=== PATIENT | female | born 1960 | race Caucasian/White ===

== ENCOUNTER 2017-06-05 13:30 | Outpatient (RCR) | payer MEDICARE, MEDICAID, SELFPAY ==
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
--- NOTE | 2017-06-29 14:46 | HP.PTDCNRP_ITS ---
HP - Discharge Summary (1) - Patient Information JEREMY TURNER was seen in my office for initial evaluation on 05/22/17. The following Plan of Care was established for this patient: Initial Frequency: 2-3x /Week Initial Duration: 4-6 Weeks - Anticipated Interventions Patient/Client Instruction: Educate patient on: Condition, Plan of Care, Risk Factors, Benefits of Fitness Program For the Purpose of:: To improve self management Therapeutic Exercise to Include: Strength training, Body mechanics, Postural training, Flexibilty training, In an aquatic setting, Dynamic Lumbar Stabilization, Scapular Strength/Stabilization For the Purpose of:: To improve ability of physical actions for home/community/ work/leisure, To improve gait and locomotor functions This patient was last seen in our office . Pertinent comments regarding their Physical therapy will appear below: THIS PATIENT ATTENDED AN INITIAL EVALUATION AND TWO FOLLOW UP VISITS THEN CANCELLED SEVERAL APPOINTMENTS APPARENTLY DUE TO ILLNESS. SHE CANCELLED HER LAST SCHEDULED VISIT AND TO MY KNOWLEDGE SHE HAS NOT RE-SCHEDULED. I WILL GO A HEAD AND DISCHARGE HER CHART AT THIS TIME BUT WE WOULD BE HAPPY TO RESUME PT IN THE FUTURE APPROPRIATE. At this point I will be discontinuing this patient from physical therapy. I would be happy to see this patient again in the future if found appropriate by the physician. Thank you! Gloria Novak
== END 2017-06-05 19:00 | disposition home or self-care (01) ==
LOC: PT 13:30
PROVIDERS: Family Provider Nurse Practitioner Family; PCP Nurse Practitioner Family; Visit Provider Anesthesiology Pain Medicine
DX: M48.02 Spinal stenosis, cervical region (principal); M50.30 Other cervical disc degeneration, unspecified cervical region; M48.061 Spinal stenosis, lumbar region without neurogenic claudication; M46.96 Unspecified inflammatory spondylopathy, lumbar region; M54.16 Radiculopathy, lumbar region; M51.36 Other intervertebral disc degeneration, lumbar region; M15.9 Polyosteoarthritis, unspecified; M79.1 Myalgia; G89.4 Chronic pain syndrome
CPT/HCPCS: 97113; 97162

== ENCOUNTER → 2023-02-16 | Outpatient (CLI) | payer MEDICARE, MEDICAID, SELFPAY ==
--- NOTE | 2023-02-16 14:10 | NEURO ---
NCS and/or EMG Patient Report Ordering Doctor: ABDOUL JEROME DATE OF SERVICE: 02/16/23 Clinical Summary: 62 year old female presenting with complaints of numbness in the left hand and distal left lower extremity. This EMG/NCS was performed to evaluate for left carpal tunnel syndrome, left lumbosacral radiculopathy, and peripheral polyneuropathy. Nerve Conduction Studies Summary: The left median-D2 SNAP distal latency was prolonged. The left ulnar-D5 SNAP amplitude was reduced. Needle Examination Summary: Needle examination of select muscles of the left upper and lower extremities was normal. Impression: There is electrodiagnostic evidence of the following - 1) Mild, left median mononeuropathy at the wrist (carpal tunnel syndrome), with sensory fiber demyelination. 2) Isolated lower ulnar sensory amplitude can be indicative of a non-localizable left ulnar mononeuropathy. There is no electrodiagnostic evidence of a left lumbosacral radiculopathy and large-fiber peripheral neuropathy. Multi Select Codes Neurology Neurology Interp Codes: 48220-90 Musc test done w/n test comp (interp) (2) and 25125-25 Nrv cndj test 11-12 studies (interp)
== END | disposition home or self-care (01) ==
LOC: PSN 12:12
PROVIDERS: PCP Nurse Practitioner Family; Referring Provider Psychiatry & Neurology Neurology; Visit Provider Psychiatry & Neurology Neurology
DX: M21.372 Foot drop, left foot (principal)
CPT/HCPCS: 95886; 95912

== ENCOUNTER → 2024-08-08 | Outpatient (CLI) | payer MEDICARE, MEDICAID, SELFPAY ==
[2024-08-08 17:23] LABS: Absolute Lymphocyte Count 2.85 X10^3/uL (0.83-4.51); Absolute Neutrophil Count 5.7 X10^3/uL (2.0-7.7); Basophil# 0.11 X10^3/uL; Basophil% 1.1 % (0-1); Eosinophil# 0.26 X10^3/uL; Eosinophils% 2.6 % (0-5); Hematocrit 43.8 % (37-47); Hemoglobin 14.4 g/dL (12.0-15.0); Lymphocyte # 2.85 X10^3/ul (0.83-4.51); Lymphocyte % 28.8 % (19-41); Mean Corp Hgb Conc 32.9 g/dL (32-36); Mean Corpuscular Hgb 31.3 pg (27.0-32.0); Mean Corpuscular Volume 95.2 fL (81-99); Mean Platelet Vol. 9.5 fl (6.2-12.0); Monocyte# 0.93 X10^3/uL; Monocyte% 9.4 % (0-10); NRBC Flagged by Analyzer 0 % (0-5); Neutrophil # 5.72 X10^3/uL (2.7-7.7); Neutrophil % 57.8 % (47-70); Platelet Count 559 K/mm3 (150-450); RBC Distribution Width CV 12.4 % (11.6-14.6); RBC Distribution Width SD 43.3 fl (35.1-43.9); White Blood Count 9.9 K/mm3 (4.4-11.0)
[2024-08-08 18:15] LABS: ALB/GLOB Ratio 1.5 RATIO (0.9-2.4); AST(SGOT) 23 U/L (<=31); Alanine Aminotransfer ALT/SGPT 20 U/L (<=34); Albumin, Serum 4.8 g/dL (3.4-4.8); Alkaline Phosphatase 74 U/L (35-104); Anion Gap 16 (5-15); BUN 11 mg/dL (4-19); BUN/Creat Ratio 10.5 RATIO (10-20); Calcium,Total 10.1 mg/dL (7.6-11.0); Carbon Dioxide 22.8 mmol/L (21.0-32.0); Chloride 101 mmol/L (98-108); Cholesterol 205 mg/dL (<=200); Creatinine, Serum 1.03 mg/dL (0.70-1.20); EST Glomerular Filtration Rate 60 (>60); Globulin 3.2 g/dL (2.2-4.2); Glucose 94 mg/dL (70-99); Hepatitis C Antibody Nonreactive (Nonreactive); High Density Lipoprotein 58 mg/dL; Low Density Lipoprotein Calc. 118 mg/dL; Potassium 3.4 mmol/L (3.3-5.1); Protein, Total 7.9 g/dL (5.9-8.4); Sodium Level 140 mmol/L (133-145); Total Bilirubin 0.27 mg/dL (0.00-1.30); Triglycerides 147 mg/dL; Very Low Density Lipoprotein 29 mg/dL (5-40); cholesterol:hdl ratio screen 3.54
[2024-08-08 18:21] LABS: Vitamin D,25 Hydroxy 30.5 ng/mL (30-100)
== END | disposition home or self-care (01) ==
LOC: LAB 15:54
PROVIDERS: PCP Nurse Practitioner Family; Referring Provider Family Medicine Geriatric Medicine; Visit Provider Family Medicine Geriatric Medicine
DX: Z13.89 Encounter for screening for other disorder (principal); E78.5 Hyperlipidemia, unspecified; E55.9 Vitamin D deficiency, unspecified
CPT/HCPCS: 36415; 80053; 80061; 82306; 84443; 85025; 86803

== ENCOUNTER → 2024-08-27 | Outpatient (CLI) | payer MEDICARE, MEDICAID, SELFPAY ==
--- NOTE | 2024-08-27 11:56 | BD_ITS ---
PROCEDURE: DEXA BONE DENSITY STUDY 08/27/2024 REASON FOR EXAM: F, age 64 y/o . Postmenopausal. TECHNIQUE: DXA scan of sites with data reported below. REFERENCE LINKS: ISCD Adult Positions COMPARISON: None FINDINGS: BMD and T-SCORES Lumbar spine: 1.103 g/cm2, T-score 0.5 Levels: L1 through L4 Left femoral neck: 0.549 g/cm2, T-score -2.7 Femoral neck comparison data not recommended for monitoring change. Left total hip: 0.764 g/cm2, T-score -1.5 Right femoral neck: 0.559 g/cm2, T-score -2.6 Femoral neck comparison data not recommended for monitoring change. Right total hip: 0.752 g/cm2, T-score -1.6 The World Health Organization has defined the following categories based on bone density: Normal bone density: T-score equal to or greater than -1.0 Osteopenia: T-score between -1.0 and -2.5 Osteoporosis: T-score equal to or less than -2.5 The patient does meet the pharmacological treatment recommendations for prevention of osteoporosis. BD/Dexa Bone Density Study IMPRESSION: OSTEOPOROSIS. Recommend follow-up as clinically warranted. Reading Location: [facility]
== END | disposition home or self-care (01) ==
LOC: OPBD 11:48
PROVIDERS: PCP Family Medicine Geriatric Medicine; Referring Provider Family Medicine Geriatric Medicine; Visit Provider Family Medicine Geriatric Medicine
DX: Z12.31 Encounter for screening mammogram for malignant neoplasm of breast (principal); Z78.0 Asymptomatic menopausal state; F17.210 Nicotine dependence, cigarettes, uncomplicated
CPT/HCPCS: 77080

== ENCOUNTER → 2024-11-11 | Outpatient (CLI) | payer MEDICARE, MEDICAID, SELFPAY ==
[2024-11-11 12:20] LABS: Hematocrit 37.7 % (37-47); Hemoglobin 12.1 g/dL (12.0-15.0); Immature Granulocytes Count 0.020 X10^3/uL (0.0-0.0); Mean Corp Hgb Conc 32.1 g/dL (32-36); Mean Corpuscular Volume 95.9 fL (81-99); Mean Platelet Vol. 9.2 fl (6.2-12.0); NRBC Flagged by Analyzer 0 % (0-5); Platelet Count 488 K/mm3 (150-450); RBC Distribution Width CV 13.7 % (11.6-14.6); RBC Distribution Width SD 48.7 fl (35.1-43.9); Red Blood Count 3.93 M/mm3 (4.2-5.4); White Blood Count 8.9 K/mm3 (4.4-11.0)
[2024-11-11 13:10] LABS: AST(SGOT) 17 U/L (<=31); Alanine Aminotransfer ALT/SGPT 9 U/L (<=34); Albumin, Serum 4.1 g/dL (3.4-4.8); Alkaline Phosphatase 162 U/L (35-104); Anion Gap 12 (5-15); BUN 8 mg/dL (4-19); BUN/Creat Ratio 15.7 RATIO (10-20); Calcium,Total 9.0 mg/dL (7.6-11.0); Carbon Dioxide 23.5 mmol/L (21.0-32.0); Chloride 104 mmol/L (98-108); Globulin 2.7 g/dL (2.2-4.2); Glucose 99 mg/dL (70-99); Potassium 3.7 mmol/L (3.3-5.1); Vitamin D,25 Hydroxy 23.4 ng/mL (30-100)
[2024-11-11 19:30] LABS: Xtra Tube Kwok EXTRA TUBE
== END | disposition home or self-care (01) ==
LOC: LAB 11:28
PROVIDERS: PCP Family Medicine Geriatric Medicine; Referring Provider Family Medicine Geriatric Medicine; Visit Provider Family Medicine Geriatric Medicine
DX: R53.83 Other fatigue (principal); E55.9 Vitamin D deficiency, unspecified
CPT/HCPCS: 36415; 80053; 82306; 84443; 85025

== ENCOUNTER → 2024-11-18 | Outpatient (CLI) | payer MEDICARE, MEDICAID, SELFPAY ==
--- NOTE | 2024-11-18 08:11 | CT_ITS ---
PROCEDURE: LOW DOSE CT LUNG SCREENING 11/18/2024 REASON FOR EXAM: NICOTINE DEPENDENCE Current smoker. Patient has smoked 2 pack per day for 51 years. COPD. TECHNIQUE: LOW DOSE CT LUNG SCREENING Coronal and Sagittal reconstruction series were provided. One or more dose reduction techniques were used (e.g., Automated exposure control, adjustment of the mA and/or kV according to patient size, use of iterative reconstruction technique). REFERENCE LINK: [employer] Lung-RADS RADIATION DOSE SUMMARY: CTDlvol: 2.01 mGy DLP: 68.46 mGycm COMPARISON: None FINDINGS: PULMONARY NODULES: (Only nodules >3mm are reported) Nodules described below are on series 1 unless otherwise specified. Pulmonary Nodules: No suspicious pulmonary nodule is seen. Hardware:None Lymph Nodes:Small benign-appearing mediastinal lymph nodes. Heart and Vasculature:The heart is not enlarged.Calcified atherosclerotic plaques of the aortic arch. Coronary Artery Calcifications: Present Lungs and Airways: Hyperinflation. Mild degree of emphysema. Scarring at the lung apices. Pleura:No pleural effusion. Upper Abdomen:Unremarkable Bones:Degenerative changes of the thoracic spine. CT/Low Dose CT Lung Screening IMPRESSION: Hyperinflation mild emphysematous changes. Scarring at the lung apices. Coronary artery calcification (CAC) is is present Lung-RADS Category: 2 BENIGN (BASED ON IMAGING FEATURES OR INDOLENT BEHAVIOR). RECOMMEND 12-MONTH SCREENING LDCT. Other Significant Findings: None Reading Location: [facility]
--- OUTSIDE RECORDS SUMMARY | 2024-11-18 08:46 | XMS RPT_ITS | CCD ---
Author Organization [facility] Care Team Providers Care Petroleum Laboratory Technician Name Role Phone Obdulio Cm N Unavailable Eden Cmica N Unavailable Eden Cmica N Unavailable MD ABDOUL JEROME [facility] ABDOUL JEROME Other Provider Unavailable Ungerer, OCTAVIA. Obdulio Primary Care Provider Dr. Abhilash Handley Attending Provider [phone] Ungwangr PHARMACY AFFAIRS ASSISTANTObdulio Menendez Primary Care Provider [phone] Jaison TYLER, Dr. Sachin Hook Attending Provider [phone] Jaison TYLER, Dr. Sachin Hook Referring Provider Jaison TYLER, Dr. Sachin Hook Primary Care Provider [phone] OBDULIO BOWMAN NP Consulting Unavailable CHAPA, HARVEY Primary Care Unavailable CHAPA, HARVEY Admitting Unavailable CHAPA, HARVEY Attending Unavailable PROVIDER, UNKNOWN Consulting Unavailable CHAPA, HARVEY Primary Care Unavailable CHAPA, HARVEY Admitting Unavailable CHAPA, HARVEY Attending Unavailable EDD RINALDI MD Consulting Unavailable PROVIDER, UNKNOWN Consulting Unavailable PROVIDER, UNKNOWN Consulting Unavailable PROVIDER, UNKNOWN Consulting Unavailable OBDULIO BOWMAN NP Consulting Unavailable CHAPA, HARVEY Primary Care Unavailable CHAPA, HARVEY Admitting Unavailable CHAPA, HARVEY Attending Unavailable PROVIDER, UNKNOWN Consulting Unavailable OBDULIO BOWMAN PHARMACY AFFAIRS ASSISTANT Consulting Unavailable CHAPA, HARVEY Primary Care Unavailable CHAPA, HARVEY Admitting Unavailable CHAPA, HARVEY Attending Unavailable PROVIDER, UNKNOWN Consulting Unavailable EDD RINALDI MD Primary Care Unavailable EDD RINALDI MD Admitting Unavailable EDD RINALDI MD Attending Unavailable EDD RINALDI MD Consulting Unavailable PROVIDER, UNKNOWN Consulting Unavailable PROVIDER, UNKNOWN Consulting Unavailable PROVIDER, UNKNOWN Consulting Unavailable OBDULIO BOWMAN PHARMACY AFFAIRS ASSISTANT Admitting Unavailable OBDULIO BOWMAN PHARMACY AFFAIRS ASSISTANT Attending Unavailable UNGERER, OBDULIO PHARMACY AFFAIRS ASSISTANT Consulting Unavailable OBDULIO BOWMAN NP Primary Care Unavailable PROVIDER, UNKNOWN Consulting Unavailable OBDULIO BOWMAN NP Consulting Unavailable HARVEY CHAPA Admitting Unavailable HARVEY CHAPA Attending Unavailable HARVEY CHAPA Primary Care Unavailable PROVIDER, UNKNOWN Consulting Unavailable HARVEY CHAPA Primary Care Unavailable HARVEY CHAPA Admitting Unavailable HARVEY CHAPA Attending Unavailable Jaison, Sachin Chi Referring Unavailable Jaison, Sachin Chi Attending Unavailable Jaison, Sachin Chi Primary Care Unavailable Jaiosn, Sachin Chi Referring Unavailable Jaison, Sachin Chi Attending Unavailable Ungerer Obdulio Primary Care Unavailable Jaison, Sachin Chi Referring Unavailable Jaison, Sachin Chi Attending Unavailable Jaison, Sachin Chi Primary Care Unavailable Jaison, Sachin Chi Referring Unavailable Jaison, Sachin Chi Attending Unavailable Jaison, Sachin Chi Primary Care Unavailable Allergies Allergy Classification Reported Allergen(s) Allergy Type Date of Onset Reaction(s) Facility (2 sources) ondansetron Drug Allergy [facility] Work Phone: (1 source) Ondansetron Drug Allergy [facility] Repository Medications Completed/Discontinued Medications Medication Drug Class(es) Dates Sig (Normalized) Sig (Original) acetaminophen 325 mg / HYDROcodone bitartrate 7.5 mg oral tablet (2 sources) Opioid Agonist Start: 02-28-2017 NORCO 7.5-325 MG TABS HYDROCODONE-ACETA MINOPHEN [id number] [facility] ALPRAZolam 1 mg oral tablet (2 sources) Benzodiazepine Start: 02-28-2017 XANAX 1 MG TABS ALPRAZOLAM [id number] [facility] amLODIPine 5 mg oral tablet (2 sources) Dihydropyridine Calcium Channel Danielito Start: 02-28-2017 AMLODIPINE BESYLATE 5 MG TABS AMLODIPINE BESYLATE [id number] [facility] atorvastatin 20 mg oral tablet (2 sources) HMG-CoA Reductase Inhibitor Start: 02-28-2017 ATORVASTATIN CALCIUM 20 MG TABS ATORVASTATIN CALCIUM [id number] [facility] cloNIDine hydrochloride 0.1 mg oral tablet (2 sources) Central alpha-2 Adrenergic Agonist Start: 02-28-2017 CLONIDINE HCL 0.1 MG TABS CLONIDINE HCL [id number] [facility] diclofenac sodium 25 mg delayed release oral tablet (2 sources) Nonsteroidal Anti-inflammatory Drug Start: 02-28-2017 DICLOFENAC SODIUM 25 MG TBEC DICLOFENAC SODIUM [id number] [facility] DULoxetine 20 mg delayed release oral capsule (2 sources) Serotonin and Norepinephrine Reuptake Inhibitor Start: 02-28-2017 DULOXETINE HCL 20 MG CPE DULOXETINE HCL [id number] [facility] gabapentin 600 mg oral tablet (2 sources) Anti-epileptic Agent Start: 02-28-2017 NEURONTIN 600 MG TABS GABAPENTIN [id number] [facility] hydrOXYzine hydrochloride 25 mg oral tablet (2 sources) Antihistamine Start: 02-28-2017 HYDROXYZINE HCL 25 MG TABS HYDROXYZINE HCL [id number] [facility] meloxicam 7.5 mg oral tablet (2 sources) Nonsteroidal Anti-inflammatory Drug Start: 02-28-2017 MOBIC 7.5 MG TABS MELOXICAM [id number] [facility] Drug Treatment Unknown - unknown (1 source) No information available. omeprazole 20 mg delayed release oral tablet (2 sources) Proton Pump Inhibitor Start: 02-28-2017 OMEPRAZOLE 20 MG TBE OMEPRAZOLE [id number] [facility] tiZANidine 2 mg oral tablet (2 sources) Central alpha-2 Adrenergic Agonist Start: 02-28-2017 TIZANIDINE HCL 2 MG TABS TIZANIDINE HCL [id number] [facility] vitamin b6 100 mg oral tablet (2 sources) Start: 02-28-2017 PYRIDOXINE HCL 100 MG TABS PYRIDOXINE HCL [id number] [facility] Problems Active Problems Problem Classification Problem Date Documented Da te Episodic/Chronic Anxiety disorders (1 source) Anxiety disorder, unspecified; Translations: [Anxiety disorder, unspecified] Onset: 08-30-2024 Chronic Chronic obstructive pulmonary disease and bronchiectasis (1 source) Chronic obstructive pulmonary disease, unspecified; Translations: [Chronic obstructive pulmonary disease, unspecified] Onset: 08-30-2024 Chronic Disorders of lipid metabolism (1 source) Hyperlipidemia, unspecified; Translations: [Hyperlipidemia, unspecified] Onset: 08-30-2024 Chronic Esophageal disorders (1 source) Gastro-esophageal reflux disease without esophagitis; Translations: [Gastro-esophageal reflux disease without esophagitis] Onset: 08-30-2024 Chronic Essential hypertension (2 sources) Essential (primary) hypertension; Translations: [Essential (primary) hypertension] Onset: 07-19-2024 Chronic Malaise and fatigue (1 source) Other fatigue; Translations: [Other fatigue] Onset: 11-15-2024 Episodic Mood disorders (1 source) Mood disorders; Translations: [Depression, unspecified] Onset: 08-30-2024 Other screening for suspected conditions (not mental disorders or infectious disease) (2 sources) Encounter for screening mammogram for malignant neoplasm of breast; Translations: [Encounter for screening for other disorder] Onset: 08-14-2024 Episodic Spondylosis; intervertebral disc disorders; other back problems (8 sources) Spondylosis without myelopathy or radiculopathy, lumbosacral region; Translations: [Spondylosis without myelopathy or radiculopathy, lumbar region] Onset: 08-07-2024 Chronic Substance-related disorders (3 sources) Nicotine dependence, unspecified, uncomplicated; Translations: [Nicotine dependence, unspecified, with unspecified nicotine-induced disorders] Onset: 08-07-2024 Chronic Unclassified (1 source) No current problems or disability 03-01-2017 Past or Other Problems Problem Classification Problem Date Documented Da te Episodic/Chronic Spondylosis; intervertebral disc disorders; other back problems (4 sources) Neck pain; Translations: [Low back pain] Onset: 02-28-2017 02-28-2017 Episodic Results Test Name Value Interpretation Reference Range Facility Absolute lymphocyte countOrd ered By: Sachin Blackwood on 11-11-2024 Lymphocytes Auto (Unsp spec) [#/Vol] 2.21 10*3/uL 0.83-4.51 [facility] Absolute neutrophil countOrd ered By: Sachin Blackwood on 11-11-2024 Neutrophils (Bld) [#/Vol] 5.4 10*3/uL 2.0-7.7 [facility] Anion gap in Serum or Plasma Ordered By: Sachin Blackwood on 11-11-2024 Anion gap [Moles/Vol] 12 mmol/L - [facility] Automated lymphocyte count a s percentage of total leukocytesOrdered By: Sachin Blackwood on 11-11-2024 Lymphocytes/100 WBC Auto (Unsp spec) 25.0 % 19- [facility] BUN/creatinine ratioOrdered By: Sachin Blackwood on 11-11-2024 Urea nitrogen/Creatinine [Mass ratio] 15.7 mg/mg 10-20 [facility] Basophil percentageOrdered B y: Sachin Blackwood on 11-11-2024 Basophils/100 WBC (Bld) 0.8 % 0-1 [facility] Bilirubin, totalOrdered By: Sachin Blackwood on 11-11-2024 Bilirubin [Mass/Vol] 0.16 mg/dL 0.00-1.30 [facility] CBC W/Diff, Automatedon 10-16 Absolute Lymph 2.21 X10 3/uL Normal 0.83-4.51 [facility] Comment on above: Performed By: #### L 100.0100, L506.1001, L501.9520, L500.4050 #### [facility] [address] [place], [address] Absolute Neut 5.4 X10 3/uL Normal 2.0-7.7 [facility] Comment on above: Performed By: #### L 100.0100, L506.1001, L501.9520, L500.4050 #### [facility] [address] [place], [address] Basophils/100 WBC (Bld) 0.8 % Normal 0-1 [facility] Comment on above: Performed By: #### L 100.0100, L506.1001, L501.9520, L500.4050 #### [facility] [address] [place], [address] Eosinophils/100 WBC (Bld) 3.2 % Normal 0-5 [facility] Comment on above: Performed By: #### L 100.0100, L506.1001, L501.9520, L500.4050 #### [facility] [address] [place], [address] Erythrocyte distribution width (RBC) [Ratio] 13.7 % Normal 11.6-14.6 [facility] Comment on above: Performed By: #### L 100.0100, L506.1001, L501.9520, L500.4050 #### [facility] [address] [place], [address] Hematocrit (Bld) [Volume fraction] 37.7 % Normal 37-47 [facility] Comment on above: Performed By: #### L 100.0100, L506.1001, L501.9520, L500.4050 #### [facility] [address] [place], [address] Hemoglobin (Bld) [Mass/Vol] 12.1 g/dL Normal 12.0-15.0 [facility] Comment on above: Performed By: #### L 100.0100, L506.1001, L501.9520, L500.4050 #### [facility] [address] [place], [address] IG% 0.200 Normal 0.0-0.9 [facility] Comment on above: Result Comment: IG% - Immature Granulocytes (promyelocytes, myelocytes and metamyelocytes) > 1% indicates that a LEFT SHIFT is Present. Performed By: #### L 100.0100, L506.1001, L501.9520, L500.4050 #### [facility] [address] [place], [address] Lymphocytes/100 WBC (Bld) 25.0 % Normal 19-41 [facility] Comment on above: Performed By: #### L 100.0100, L506.1001, L501.9520, L500.4050 #### [facility] [address] [place], [address] MCH (RBC) [Entitic mass] 30.8 pg Normal 27.0-32.0 [facility] Comment on above: Performed By: #### L 100.0100, L506.1001, L501.9520, L500.4050 #### [facility] [address] [place], [address] MCHC (RBC) [Mass/Vol] 32.1 g/dL Normal 32-36 [facility] Comment on above: Performed By: #### L 100.0100, L506.1001, L501.9520, L500.4050 #### [facility] [address] [place], [address] MCV (RBC) [Entitic vol] 95.9 fL Normal 81-99 [facility] Comment on above: Performed By: #### L 100.0100, L506.1001, L501.9520, L500.4050 #### [facility] [address] [place], [address] Monocytes/100 WBC (Bld) 9.4 % Normal 0-10 [facility] Comment on above: Performed By: #### L 100.0100, L506.1001, L501.9520, L500.4050 #### [facility] [address] [place], [address] Neutrophils/100 WBC (Bld) 61.4 % Normal 47-70 [facility] Comment on above: Performed By: #### L 100.0100, L506.1001, L501.9520, L500.4050 #### [facility] [address] [place], [address] Nucleated RBC (Bld) [#/Vol] 0 10*3/uL Normal 0-5 [facility] Comment on above: Performed By: #### L 100.0100, L506.1001, L501.9520, L500.4050 #### [facility] [address] [place], [address] Platelet mean volume (Bld) [Entitic vol] 9.2 fL Normal 6.2-12.0 [facility] Comment on above: Performed By: #### L 100.0100, L506.1001, L501.9520, L500.4050 #### [facility] [address] [place], [address] Platelets (Bld) [#/Vol] 488 10*3/uL High 150-450 [facility] Comment on above: Performed By: #### L 100.0100, L506.1001, L501.9520, L500.4050 #### [facility] [address] [place], [address] RBC (Bld) [#/Vol] 3.93 10*6/uL Low 4.2-5.4 [facility] Comment on above: Performed By: #### L 100.0100, L506.1001, L501.9520, L500.4050 #### [facility] [address] [place], [address] RDW SD 48.7 fl High 35.1-43.9 [facility] Comment on above: Performed By: #### L 100.0100, L506.1001, L501.9520, L500.4050 #### [facility] [address] [place], [address] WBC (Bld) [#/Vol] 8.9 10*3/uL Normal 4.4-11.0 [facility] Comment on above: Performed By: #### L 100.0100, L506.1001, L501.9520, L500.4050 #### [facility] [address] [place], [address] Carbon dioxide, total [Moles /volume] in Central venous bloodOrdered By: Sachin Blackwood on 11-11-2024 CO2 [Moles/Vol] 23.5 mmol/L 21.0-32.0 [facility] Chloride assayOrdered By: Elijah jami Millanok on 11-11-2024 Chloride [Moles/Vol] 104 mmol/L 98-108 [facility] Metabolic Prof ilon 11-11-2024 Albumin [Mass/Vol] 4.1 g/dL Normal 3.4-4.8 [facility] Comment on above: Performed By: #### L 100.0100, L506.1001, L501.9520, L500.4050 #### [facility] [address] [place], [address] Albumin/Globulin [Mass ratio] 1.5 {ratio} Normal 0.9-2.4 [facility] Comment on above: Performed By: #### L 100.0100, L506.1001, L501.9520, L500.4050 #### [facility] [address] [place], [address] ALK PHOS 162 U/L High 35-104 [facility] Comment on above: Performed By: #### L 100.0100, L506.1001, L501.9520, L500.4050 #### [facility] [address] [place], [address] ALT [Catalytic activity/Vol] 9 U/L Normal <=34 [facility] Comment on above: Performed By: #### L 100.0100, L506.1001, L501.9520, L500.4050 #### [facility] [address] [place], [address] AST [Catalytic activity/Vol] 17 U/L Normal <=31 [facility] Comment on above: Performed By: #### L 100.0100, L506.1001, L501.9520, L500.4050 #### [facility] [address] [place], [address] Bilirubin [Mass/Vol] 0.16 mg/dL Normal 0.00-1.30 [facility] Comment on above: Performed By: #### L 100.0100, L506.1001, L501.9520, L500.4050 #### [facility] [address] [place], [address] BUN/CRE 15.7 RATIO Normal 10-20 [facility] Comment on above: Performed By: #### L 100.0100, L506.1001, L501.9520, L500.4050 #### [facility] [address] [place], [address] Calcium [Mass/Vol] 9.0 mg/dL Normal 7.6-11.0 [facility] Comment on above: Performed By: #### L 100.0100, L506.1001, L501.9520, L500.4050 #### [facility] [address] [place], [address] Chloride [Moles/Vol] 104 mmol/L Normal 98-108 [facility] Comment on above: Performed By: #### L 100.0100, L506.1001, L501.9520, L500.4050 #### [facility] [address] [place], [address] CO2 [Moles/Vol] 23.5 mmol/L Normal 21.0-32.0 [facility] Comment on above: Performed By: #### L 100.0100, L506.1001, L501.9520, L500.4050 #### [facility] [address] [place], [address] Creatinine [Mass/Vol] 0.49 mg/dL Low 0.70-1.20 [facility] Comment on above: Performed By: #### L 100.0100, L506.1001, L501.9520, L500.4050 #### [facility] [address] [place], [address] GAP 12 Normal 5-15 [facility] Comment on above: Performed By: #### L 100.0100, L506.1001, L501.9520, L500.4050 #### [facility] [address] [place], [address] GFR/1.73 sq M.predicted among non-blacks MDRD (S/P/Bld) [Vol rate/Area] 104 mL/min/{1.73_m2} Normal >60 [facility] Comment on above: Result Comment: mL/m in/1.73m2 CKD-EPI Creatinine Equation (2020) Performed By: #### L 100.0100, L506.1001, L501.9520, L500.4050 #### [facility] [address] [place], [address] Globulin (S) [Mass/Vol] 2.7 g/dL Normal 2.2-4.2 [facility] Comment on above: Performed By: #### L 100.0100, L506.1001, L501.9520, L500.4050 #### [facility] [address] [place], [address] Glucose [Mass/Vol] 99 mg/dL Normal 70-99 [facility] Comment on above: Performed By: #### L 100.0100, L506.1001, L501.9520, L500.4050 #### [facility] [address] [place], [address] Potassium [Moles/Vol] 3.7 mmol/L Normal 3.3-5.1 [facility] Comment on above: Performed By: #### L 100.0100, L506.1001, L501.9520, L500.4050 #### [facility] [address] [place], [address] Sodium [Moles/Vol] 139 mmol/L Normal 133-145 [facility] Comment on above: Performed By: #### L 100.0100, L506.1001, L501.9520, L500.4050 #### [facility] [address] [place], [address] T PROT 6.8 g/dL Normal 5.9-8.4 [facility] Comment on above: Performed By: #### L 100.0100, L506.1001, L501.9520, L500.4050 #### [facility] [address] [place], [address] Urea nitrogen [Mass/Vol] 8 mg/dL Normal 4-19 [facility] Comment on above: Performed By: #### L 100.0100, L506.1001, L501.9520, L500.4050 #### [facility] [address] [place], [address] Eosinophil percentageOrdered By: Sachin Blackwood on 11-11-2024 Eosinophils/100 WBC (Bld) 3.2 % 0-5 [facility] Erythrocyte distribution wid th ratioOrdered By: Sachin Blackwood on 11-11-2024 Erythrocyte distribution width (RBC) [Ratio] 13.7 % 11.6-14.6 [facility] Erythrocyte distribution wid th standard deviationOrdered By: Sachin Blackwood on 11-11-2024 Erythrocyte distribution width (RBC) [Ratio] 48.7 fl High 35.1-43.9 [facility] Glomerular filtration rate ( GFR) estimation/1.73 sq m using serum, plasma, or whole bOrdered By: Sachin Blackwood on 11-11-2024 GFR/1.73 sq M.predicted among non-blacks MDRD (S/P/Bld) [Vol rate/Area] 104 mL/min/{1.73_m2} >60 [facility] Comment on above: mL/min/1.73m2 CKD-EP I Creatinine Equation (2020) Hematocrit Auto (Bld) [Volum e fraction]Ordered By: Sachin Blackwood on 11-11-2024 Hematocrit (Bld) [Volume fraction] 37.7 % 37-47 [facility] Hemoglobin measurementOrdere d By: Sachin Blackwood on 11-11-2024 Hemoglobin (Bld) [Mass/Vol] 12.1 g/dL 12.0-15.0 [facility] Immature granulocytes/100 WB C Auto (Bld)Ordered By: Sachin Blackwood 11-11-2024 Immature granulocytes/100 WBC (Bld) 0.200 % 0.0-0.9 [facility] Comment on above: IG% - Immature Granu locytes (promyelocytes, myelocytes and metamyelocytes) > 1% indicates that a LEFT SHIFT is Present. Laboratory - Chemistry and C hemistry - challengeOrdered By: Sachin Blackwood on 11-11-2024 AST [Catalytic activity/Vol] 17 U/L <32 [facility] MCV (mean corpuscular volume ) determinationOrdered By: Sachin Blackwood 11-11-2024 MCV (RBC) [Entitic vol] 95.9 fL 81-99 [facility] Mean corpuscular hemoglobin (MCH) determinationOrdered By: Sachin Blackwood 11-11-2024 MCH (RBC) [Entitic mass] 30.8 pg 27.0-32.0 [facility] Mean corpuscular hemoglobin concentration (MCHC) determinationOrdered By: Sachin Blackwood 11-11-2024 MCHC (RBC) [Mass/Vol] 32.1 g/dL 32-36 [facility] Mean platelet volume determi nationOrdered By: Sachin Blackwood 11-11-2024 Platelet mean volume (Bld) [Entitic vol] 9.2 fL 6.2-12.0 [facility] Monocyte percentageOrdered B y: Sachin Blackwood on 11-11-2024 Monocytes/100 WBC (Bld) 9.4 % 0-10 [facility] Neutrophil percentageOrdered By: Sachin Blackwood 11-11-2024 Neutrophils/100 WBC (Bld) 61.4 % 47-70 [facility] Nucleated red blood cell per centageOrdered By: Sachin Blackwood 11-11-2024 Nucleated RBC/100 WBC (Bld) [Ratio] 0 % 0-5 [facility] Platelet countOrdered By: Elijah Blackwood on 11-11-2024 Platelets (Bld) [#/Vol] 488 10*3/uL High 150-450 [facility] Potassium measurement (mass/ volume)Ordered By: Sachin Blackwood on 11-11-2024 Potassium (Unsp spec) [Mass/Vol] 3.7 mmol/L 3.3-5.1 [facility] RBC Auto (Bld) [#/Vol]Ordere d By: Sachin Blackwood on 11-11-2024 RBC (Bld) [#/Vol] 3.93 10*6/uL Low 4.2-5.4 [facility] Serum creatinine measurement (mass/volume)Ordered By: Sachin Blackwood on 11-11-2024 Creatinine [Mass/Vol] 0.49 mg/dL Low 0.70-1.20 [facility] Serum globulin measurementOr dered By: Sachin Blackwood 11-11-2024 Globulin (S) [Mass/Vol] 2.7 g/dL 2.2-4.2 [facility] Serum glucose measurement (m ass/volume)Ordered By: Sachin Blackwood on 11-11-2024 Glucose [Mass/Vol] 99 mg/dL 70-99 [facility] Serum or plasma alanine lewis otransferase (ALT) measurementOrdered By: Sachin Blackwood 11-11-2024 ALT [Catalytic activity/Vol] 9 U/L <35 [facility] Serum or plasma albumin phoenix urement (mass/volume)Ordered By: Sachin Blackwood 11-11-2024 Albumin [Mass/Vol] 4.1 g/dL 3.4-4.8 [facility] Serum or plasma albumin/glob ulin mass ratioOrdered By: Sachin Blackwood 11-11-2024 Albumin/Globulin [Mass ratio] 1.5 {ratio} 0.9-2.4 [facility] Serum or plasma alkaline jose sphatase measurementOrdered By: Sachin Blackwood 11-11-2024 ALP [Catalytic activity/Vol] 162 U/L High 35-104 [facility] Serum or plasma calcium phoenix urement (mass/volume)Ordered By: Sachin Blackwood 11-11-2024 Calcium [Mass/Vol] 9.0 mg/dL 7.6-11.0 [facility] Serum or plasma urea nitroge n measurement (mass/volume)Ordered By: Sachin Blackwood on 11-11-2024 Urea nitrogen [Mass/Vol] 8 mg/dL 4-19 [facility] Sodium levelOrdered By: Sachin Blackwood on 11-11-2024 Sodium [Moles/Vol] 139 mmol/L 133-145 [facility] TSH DL <= 0.005 mIU/L QnOrde red By: Sachin Blackwood on 11-11-2024 TSH Qn 1.720 uIU/mL 0.300-4.200 [facility] Thyroid Stim Hormone (TSH)on 11-11-2024 TSH 1.720 uIU/mL Normal 0.300-4.200 [facility] Comment on above: Performed By: #### L 100.0100, L506.1001, L501.9520, L500.4050 #### [facility] [address] [place], [place], [id number] Total proteinOrdered By: Sachin Blackwood on 11-11-2024 Protein [Mass/Vol] 6.8 g/dL 5.9-8.4 [facility] Vitamin D,25 Hydroxyon 11-11 Vitamin D 25-OH 23.4 ng/mL Low 30-100 [facility] Comment on above: Result Comment: Karrie min D Status Deficiency: <20 ng/mL (50nmol/L) Insufficiency: 20-30 ng/mL (50-75 nmol/L) Sufficiency: 30-100 ng/mL (75-250 nmol/L) Toxicity: >100 ng/mL (>250 nmol/L) Performed By: #### L 100.0100, L506.1001, L501.9520, L500.4050 #### [facility] [address] [place], [place], [address] White blood cell (WBC) count Ordered By: Sachin Blackwood on 11-11-2024 WBC (Bld) [#/Vol] 8.9 10*3/uL 4.4-11.0 [facility] CBC + DIFFon 10-03-2024 Baso # 0.01 x10EE3/UL Normal 0.00 - 0.10 [facility] Comment on above: Performed By: #### 2 [id number] #### [facility],[address] [place] [address] Basophils/100 WBC (Bld) 0.1 % Normal 0.0 - 2.0 [facility] Comment on above: Performed By: #### 2 [id number] #### [facility],[address] [place] [address] CBC + DIFF Normal [facility] Comment on above: Result Comment: CBC- COMPLETE BLOOD COUNT Performed By: #### 2 [id number] #### [place] [address] EO # 0.12 x10EE3/UL Normal 0.00 - 0.50 [facility] Comment on above: Performed By: #### 2 [id number] #### [facility],[address] [place] [address] Eosinophils/100 WBC (Bld) 1.3 % Normal 0.0 - 7.0 [facility] Comment on above: Performed By: #### 2 [id number] #### [facility],[address] [place] [address] Erythrocyte distribution width (RBC) [Ratio] 13.1 % Normal 12.0 - 15.6 [facility] [facility] Comment on above: Performed By: #### 2 32601 #### [facility],[address] [place] [address] Hematocrit (Bld) [Volume fraction] 25.9 % Low 34.0 - 46.0 [facility] Comment on above: Performed By: #### 2 37879 #### [facility],[address] [place] [address] Hemoglobin (Bld) [Mass/Vol] 9.0 g/dL Low 12.0 - 16.0 [facility] Comment on above: Performed By: #### 2 41032 #### [facility],[address] [place] [address] Lymph # 1.50 x10EE3/UL Normal 0.80 - 2.80 [facility] Comment on above: Performed By: #### 2 48896 #### [facility],[address] [place] [address] Lymphocytes/100 WBC (Bld) 16.3 % Low 20.0 - 45.0 [facility] Comment on above: Performed By: #### 2 78534 #### [facility],[address] [place] [address] MANUAL DIFF N/A Normal [facility] Comment on above: Performed By: #### 2 02286 #### [facility],[address] [place] [address] MCH (RBC) [Entitic mass] 32 pg Normal 27 - 33 [facility] Comment on above: Performed By: #### 2 34680 #### [facility],[address] [place] [address] MCHC 35 X10 3 Normal 32 - 36 [facility] Comment on above: Performed By: #### 2 92011 #### [facility],[address] [place], [place] [id number] MCV (RBC) [Entitic vol] 93 fL Normal 80 - 99 [facility] Comment on above: Performed By: #### 2 01610 #### [facility],[address] [place] [address] [place] # 0.76 x10EE3/UL Normal 0.20 - 1.00 [facility] Comment on above: Performed By: #### 2 63174 #### [facility],[address] [place] [address] MONOS % 8.3 % Normal 0.0 - 10.0 [facility] Comment on above: Performed By: #### 2 98879 #### [facility],[address] [place] [address] 49957 Morphology Rogelio (Bld) [Interp] N/A Normal [facility] Comment on above: Performed By: #### 2 19493 #### [facility],[address] [place] [address] 53572 Neut # 6.79 x10EE3/UL Normal 1.50 - 7.10 [facility] Comment on above: Performed By: #### 2 04674 #### [facility],[address] [place], [place] [id number] Neutrophils/100 WBC (Bld) 74.0 % Normal 46.0 - 76.0 [facility] Comment on above: Performed By: #### 2 83400 #### [facility],[address] [place], [place] [id number] PLATELET 404 x10EE3/UL Normal 150 - 450 [facility] Comment on above: Performed By: #### 2 64172 #### [facility],[address] [place] [address] Platelet mean volume (Bld) [Entitic vol] 7.5 fL Normal 6.6 - 10.5 [facility] Comment on above: Result Comment: AUTO MATED DIFFERENTIAL Performed By: #### 2 04687 #### [facility],[address] [place] [address] 80027 RBC 2.77 x 10EE6/UL Low 4.10 - 5.30 [facility] Comment on above: Performed By: #### 2 49308 #### [facility],[address] [place] [address] 09450 WBC 9.2 x 10EE3/UL Normal 4.5 - 10.8 [facility] Comment on above: Performed By: #### 2 73909 #### [facility],[address] [place] [address] 62924 CMP with eGFRon 10-03-2024 AGE 64 years Normal [facility] Comment on above: Performed By: #### 2 75127 #### [facility],[address] [place] [address] 64291 Albumin [Mass/Vol] 2.0 g/dL Low 3.4 - 5.0 [facility] Comment on above: Performed By: #### 2 49749 #### [facility],[address] [place] [address] 52961 Albumin/Globulin [Mass ratio] 0.6 {ratio} Low 0.9 - 1.6 [facility] Comment on above: Performed By: #### 2 50222 #### [facility],[address] [place] [address] 25652 ALK PHOS 67 U/L Normal 46 - 116 [facility] Comment on above: Performed By: #### 2 72324 #### [facility],[address] [place] [address] 46992 ALT [Catalytic activity/Vol] 21 U/L Normal 16 - 63 [facility] Comment on above: Performed By: #### 2 09077 #### [facility],[address] [place] [address] 42827 Anion gap [Moles/Vol] 11 mmol/L Normal 10 - 20 [facility] Comment on above: Performed By: #### 2 98810 #### [facility],[address] [place] [address] 65431 AST [Catalytic activity/Vol] 13 U/L Normal 13 - 39 [facility] Comment on above: Performed By: #### 2 76348 #### [facility],[address] [place] [address] 71043 B/C RATIO 18 ratio Normal 0 - 30 [facility] Comment on above: Performed By: #### 2 79440 #### [facility],[address] [place] [address] 28772 Bilirubin [Mass/Vol] 0.2 mg/dL Normal 0.2 - 1.0 [facility] Comment on above: Performed By: #### 2 43470 #### [facility],[address] [place] [address] 92752 Calcium [Mass/Vol] 8.1 mg/dL Low 8.5 - 10.1 [facility] Comment on above: Performed By: #### 2 83520 #### [facility],[address] [place] [address] 07732 Chloride [Moles/Vol] 99 mmol/L Normal 98 - 107 [facility] Comment on above: Performed By: #### 2 11902 #### [facility],[address] [place] [address] 17431 CMP with eGFR Normal [facility] Comment on above: Result Comment: COMP REHENSIVE METABOLIC PANEL Performed By: #### 2 81817 #### [facility],[address] [place] [address] 76250 CO2 [Moles/Vol] 26.1 mmol/L Normal 21.0 - 32.0 [facility] Comment on above: Performed By: #### 2 42970 #### [facility],[address] [place] [address] 37879 Creatinine [Mass/Vol] 0.57 mg/dL Normal 0.55 - 1.02 [facility] Comment on above: Performed By: #### 2 85858 #### [facility],[address] [place] [address] 77364 GFR/1.73 sq M.predicted among non-blacks MDRD (S/P/Bld) [Vol rate/Area] mL/min/{1.73_m2} Normal 60 - 999 [facility] Comment on above: Performed By: #### 2 98482 #### [facility],[address] [place] [address] 81431 Result Comment: ACCO RDING TO THE NATIONAL KIDNEY DISEASE EDUCATION PROGRAM(NKDE), A NORMAL eGFR IS A VALUE GREATER THAN OR EQUAL TO 60 ML/MIN/1.73 SQ METERS. CHRONIC KIDNEY DISEASE: <60mL/MIN/1.73 SQ METERS KIDNEY FAILURE: <15mL/MIN/1.73 SQ METERS THIS TEST SHOULD ONLY BE USED FOR PATIENTS 18 YEARS OF AGE AND OLDER. Globulin (S) [Mass/Vol] 3.2 g/dL Normal 1.5 - 3.8 [facility] Comment on above: Performed By: #### 2 68641 #### [facility],[address] [place] [address] 03536 Glucose [Mass/Vol] 198 mg/dL High 74 - 106 [facility] Comment on above: Performed By: #### 2 70294 #### [facility],[address] [place] [address] 16322 Potassium [Moles/Vol] 3.2 mmol/L Low 3.5 - 5.1 [facility] Comment on above: Performed By: #### 2 61116 #### [facility],[address] [place] [address] 34573 Protein [Mass/Vol] 5.2 g/dL Low 6.4 - 8.2 [facility] Comment on above: Performed By: #### 2 17541 #### [facility],[address] [place] [address] 09632 Sodium [Moles/Vol] 133 mmol/L Low 136 - 145 [facility] Comment on above: Performed By: #### 2 52574 #### [facility],[address] [place] [address] 82302 Urea nitrogen [Mass/Vol] 10 mg/dL Normal 7 - 18 [facility] Comment on above: Performed By: #### 2 89247 #### [facility],[address] [place] [address] 87156 Final Surgical Pathology Rep [facility] 10-03-2024 Final Surgical Pathology Report . Pathology Reports Accession: Collected Date/Time: Received Date/Time: Pathologist: [id number] 09/30/2024 16:43 EDT 10/01/2024 08:32 EDT LION SANCHEZ MD Final Surgical Pathology Report DIAGNOSIS: LEFT FEMORAL HEAD: - FEMORAL HEAD WITH MEDULLARY HEMORRHAGE CONSISTENT WITH FRACTURE. NO EVIDENCE OF INFLAMMATION OR TUMOR COMMENT: [facility]# [id number] CLINICAL INFORMATION: LEFT FEMORAL NECK FRACTURE SPECIMEN: A LEFT FEMORAL HEAD GROSS DESCRIPTION: All parts labelled with patient name and [id number] Received in formalin labelled left femoral head Is a mostly round femoral head measuring 5 x 4.5 x 4 cm. The articular surface is ramos-pink and smooth. The femoral head neck is previously removed and appears focally jagged and hemorrhagic. Separate in the container are multiple fragments of bone including remainder of the femoral head neck aggregating to 5.5 x 4.5 x 3 cm. The femoral head is serially sectioned to reveal hemorrhage towards the resection margin of the tissue. No masses identified within the yellow fatty bone marrow. Following decalcification. RS-1 Raymon Vizcaino, Pathologists' Director Of Purchasing (ASCP) Performed by RAYMON VIZCAINO MICROSCOPIC DESCRIPTION: The microscopic examination is performed, except in the case of Gross Only. Verified by Pathology Report verified by [facility] LION SANCHEZ Sign out Date: 10/03/2024 14:06 Performing Lab: [facility], [address] [place] [address] Pathology Dept Disclaimer If ancillary studies were utilized, the following Laboratory Developed Test (LDT) disclaimer will apply: Under CLIA requirements, [facility]ology Laboratory is qualified to perform high complexity testing. For all ancillary stains, positive and negative controls stain appropriately. Performance characteristics of immunohistochemical and chromogenic in-situ hybridization tests have been determined by [facility]. These tests are used for clinical purposes, They should not be regarded as investigational or for research. Normal [facility] LIPID PROFILEon 10-03-2024 Cholesterol [Mass/Vol] 130 mg/dL Normal 0 - 240 [facility] Comment on above: Performed By: #### 2 23185 #### [facility],[address] [place] [address] 51044 Cholesterol in HDL [Mass/Vol] 32 mg/dL Low 40 - 60 [facility] Comment on above: Performed By: #### 2 58964 #### [facility],[address] [place] [address] 73733 Cholesterol in LDL [Mass/Vol] 76 mg/dL Normal 0 - 129 [facility] Comment on above: Performed By: #### 2 55800 #### [facility],[address] [place] [address] 32500 Cholesterol.total/Chol esterol in HDL [Mass ratio] 4.1 {ratio} Normal 0.0 - 5.0 [facility] Comment on above: Performed By: #### 2 46032 #### [facility],[address] [place] [address] 91083 Lipid 1996 panel Normal [facility] Comment on above: Result Comment: LIPI D PROFILE Performed By: #### 2 01068 #### [facility],[address] [place] [address] 11350 Triglyceride [Mass/Vol] 108 mg/dL Normal 0 - 150 [facility] Comment on above: Performed By: #### 2 16532 #### [facility],[address] [place] [address] 81583 BMP with eGFRon 10-01-2024 AGE 64 years Normal [facility] Comment on above: Performed By: #### 2 06777 #### [facility],[address] [place] [address] 14609 Anion gap [Moles/Vol] 13 mmol/L Normal 10 - 20 [facility] Comment on above: Performed By: #### 2 32835 #### [facility],[address] [place] [address] 67584 BMP with eGFR Normal [facility] Comment on above: Result Comment: BASI C METABOLIC PANEL Performed By: #### 2 46201 #### [facility],[address] [place] [address] 33602 Calcium [Mass/Vol] 9.1 mg/dL Normal 8.5 - 10.1 [facility] Comment on above: Performed By: #### 2 50339 #### [facility],[address] [place], [place] [address] Chloride [Moles/Vol] 104 mmol/L Normal 98 - 107 [facility] Comment on above: Performed By: #### 2 93148 #### [facility],[address] [place], [place] [address] CO2 [Moles/Vol] 25.4 mmol/L Normal 21.0 - 32.0 [facility] Comment on above: Performed By: #### 2 92207 #### [facility],[address] [place] [address] Creatinine [Mass/Vol] 0.34 mg/dL Low 0.55 - 1.02 [facility] Comment on above: Performed By: #### 2 81389 #### [facility],[address] [place] [address] GFR/1.73 sq M.predicted among non-blacks MDRD (S/P/Bld) [Vol rate/Area] mL/min/{1.73_m2} Normal 60 - 999 [facility] Comment on above: Performed By: #### 2 67872 #### [facility],[address] [place] [address] Result Comment: ACCO RDING TO THE NATIONAL KIDNEY DISEASE EDUCATION PROGRAM(NKDE), A NORMAL eGFR IS A VALUE GREATER THAN OR EQUAL TO 60 ML/MIN/1.73 SQ METERS. CHRONIC KIDNEY DISEASE: <60mL/MIN/1.73 SQ METERS KIDNEY FAILURE: <15mL/MIN/1.73 SQ METERS THIS TEST SHOULD ONLY BE USED FOR PATIENTS 18 YEARS OF AGE AND OLDER. Glucose [Mass/Vol] 117 mg/dL High 74 - 106 [facility] Comment on above: Performed By: #### 2 78842 #### [facility],[address] [place], [place] [phone] Potassium [Moles/Vol] 3.9 mmol/L Normal 3.5 - 5.1 [facility] Comment on above: Performed By: #### 2 90663 #### [facility],[address] [place] [address] 14590 Sodium [Moles/Vol] 138 mmol/L Normal 136 - 145 [facility] Comment on above: Performed By: #### 2 94283 #### [facility],[address] [place] [address] 83643 Urea nitrogen [Mass/Vol] 4 mg/dL Low 7 - 18 [facility] Comment on above: Performed By: #### 2 48448 #### [facility],[address] [place] [address] 97331 CBC + DIFFon 10-01-2024 Baso # 0.02 x10EE3/UL Normal 0.00 - 0.10 [facility] Comment on above: Performed By: #### 2 12822 #### [facility],[address] [place] [address] 51527 Basophils/100 WBC (Bld) 0.2 % Normal 0.0 - 2.0 [facility] Comment on above: Performed By: #### 2 23274 #### [facility],[address] [place] [address] 39215 CBC + DIFF Normal [facility] Comment on above: Result Comment: CBC- COMPLETE BLOOD COUNT Performed By: #### 2 46381 #### [facility],[address] [place] [address] 10822 EO # 0.14 x10EE3/UL Normal 0.00 - 0.50 [facility] Comment on above: Performed By: #### 2 09340 #### [facility],[address] [place] [address] 23710 Eosinophils/100 WBC (Bld) 1.3 % Normal 0.0 - 7.0 [facility] Comment on above: Performed By: #### 2 82743 #### [facility],[address] [place] [address] 89047 Erythrocyte distribution width (RBC) [Ratio] 13.2 % Normal 12.0 - 15.6 [facility] Comment on above: Performed By: #### 2 64802 #### [facility],[address] [place] [address] Hematocrit (Bld) [Volume fraction] 35.6 % Normal 34.0 - 46.0 [facility] Comment on above: Performed By: #### 2 05041 #### [facility],[address] [place] [address] Hemoglobin (Bld) [Mass/Vol] 12.4 g/dL Normal 12.0 - 16.0 [facility] Comment on above: Performed By: #### 2 15955 #### [facility],[address] [place] [address] Lymph # 1.46 x10EE3/UL Normal 0.80 - 2.80 [facility] Comment on above: Performed By: #### 2 48745 #### [facility],[address] [place] [address] Lymphocytes/100 WBC (Bld) 12.8 % Low 20.0 - 45.0 [facility] Comment on above: Performed By: #### 2 08894 #### [facility],[address] [place] [address] MANUAL DIFF N/A Normal [facility] Comment on above: Performed By: #### 2 99886 #### [facility],[address] [place], [place] [phone] MCH (RBC) [Entitic mass] 33 pg Normal 27 - 33 [facility] Comment on above: Performed By: #### 2 48115 #### [place] [id number] MCHC 35 X10 3 Normal 32 - 36 [facility] Comment on above: Performed By: #### 2 63658 #### [facility],[address] [place], [place] [phone] MCV (RBC) [Entitic vol] 94 fL Normal 80 - 99 [facility] Comment on above: Performed By: #### 2 83161 #### [facility],[address] [place] [address] [place] # 0.82 x10EE3/UL Normal 0.20 - 1.00 [facility] Comment on above: Performed By: #### 2 10493 #### [facility],[address] [place] [address] MONOS % 7.2 % Normal 0.0 - 10.0 [facility] Comment on above: Performed By: #### 2 09907 #### [place] [address] Morphology Rogelio (Bld) [Interp] N/A Normal [facility] Comment on above: Performed By: #### 2 07079 #### [place] [address] Neut # 8.93 x10EE3/UL High 1.50 - 7.10 [facility] Comment on above: Performed By: #### 2 91740 #### [place] [address] Neutrophils/100 WBC (Bld) 78.6 % High 46.0 - 76.0 [facility] Comment on above: Performed By: #### 2 76241 #### [facility],[address] [place] [address] PLATELET 578 x10EE3/UL High 150 - 450 [facility] Comment on above: Performed By: #### 2 55315 #### [place] [address] Platelet mean volume (Bld) [Entitic vol] 6.8 fL Normal 6.6 - 10.5 [facility] Comment on above: Result Comment: AUTO MATED DIFFERENTIAL Performed By: #### 2 35973 #### [place] [address],[place] [address] RBC 3.77 x 10EE6/UL Low 4.10 - 5.30 [facility] Comment on above: Performed By: #### 2 00645 #### [facility],[address] [place] [address] 74938 WBC 11.4 x 10EE3/UL High 4.5 - 10.8 [facility] Comment on above: Performed By: #### 2 78060 #### [facility],[address] [place] [address] 54681 BMP with eGFRon 09-30-2024 AGE 64 years Normal [facility] Comment on above: Performed By: #### 2 94211 #### [facility],[address] [place] [address] 09295 Anion gap [Moles/Vol] 14 mmol/L Normal 10 - 20 [facility] Comment on above: Performed By: #### 2 37542 #### [facility],[address] [place] [address] 97471 BMP with eGFR Normal [facility] Comment on above: Result Comment: BASI C METABOLIC PANEL Performed By: #### 2 82614 #### [facility],[address] [place] [address] 61054 Calcium [Mass/Vol] 9.0 mg/dL Normal 8.5 - 10.1 [facility] Comment on above: Performed By: #### 2 76344 #### [facility],[address] [place] [address] 96700 Chloride [Moles/Vol] 104 mmol/L Normal 98 - 107 [facility] Comment on above: Performed By: #### 2 76866 #### [facility],[address] [place] [address] 11430 CO2 [Moles/Vol] 25.3 mmol/L Normal 21.0 - 32.0 [facility] Comment on above: Performed By: #### 2 54753 #### [facility],[address] [place] [address] 11856 Creatinine [Mass/Vol] 0.40 mg/dL Low 0.55 - 1.02 [facility] Comment on above: Performed By: #### 2 85962 #### [facility],[address] [place] [address] 73329 GFR/1.73 sq M.predicted among non-blacks MDRD (S/P/Bld) [Vol rate/Area] mL/min/{1.73_m2} Normal 60 - 999 [facility] Comment on above: Performed By: #### 2 91997 #### [facility],[address] [place], [place] [id number] Result Comment: ACCO RDING TO THE NATIONAL KIDNEY DISEASE EDUCATION PROGRAM(NKDE), A NORMAL eGFR IS A VALUE GREATER THAN OR EQUAL TO 60 ML/MIN/1.73 SQ METERS. CHRONIC KIDNEY DISEASE: <60mL/MIN/1.73 SQ METERS KIDNEY FAILURE: <15mL/MIN/1.73 SQ METERS THIS TEST SHOULD ONLY BE USED FOR PATIENTS 18 YEARS OF AGE AND OLDER. Glucose [Mass/Vol] 110 mg/dL High 74 - 106 [facility] Comment on above: Performed By: #### 2 05998 #### [facility],[address] [place] [address] 75664 Potassium [Moles/Vol] 4.1 mmol/L Normal 3.5 - 5.1 [facility] Comment on above: Performed By: #### 2 98675 #### [facility],[address] [place] [address] 46620 Sodium [Moles/Vol] 139 mmol/L Normal 136 - 145 [facility] Comment on above: Performed By: #### 2 33748 #### [facility],[address] [place] [address] 36764 Urea nitrogen [Mass/Vol] 5 mg/dL Low 7 - 18 [facility] Comment on above: Performed By: #### 2 19266 #### [facility],[address] [place] [address] CBC + DIFFon 09-30-2024 Baso # 0.01 x10EE3/UL Normal 0.00 - 0.10 [facility] Comment on above: Performed By: #### 2 10326 #### [facility],[address] [place] [address] 59654 Basophils/100 WBC (Bld) 0.1 % Normal 0.0 - 2.0 [facility] Comment on above: Performed By: #### 2 31937 #### [facility],[address] [place] [address] CBC + DIFF Normal [facility] Comment on above: Result Comment: CBC- COMPLETE BLOOD COUNT Performed By: #### 2 39527 #### [facility],[address] [place] [address] EO # 0.07 x10EE3/UL Normal 0.00 - 0.50 [facility] Comment on above: Performed By: #### 2 39926 #### [facility],[address] [place], [place] [id number] Eosinophils/100 WBC (Bld) 0.8 % Normal 0.0 - 7.0 [facility] Comment on above: Performed By: #### 2 47995 #### [facility],[address] [place] [address] Erythrocyte distribution width (RBC) [Ratio] 13.1 % Normal 12.0 - 15.6 [facility] Comment on above: Performed By: #### 2 74610 #### [facility],[address] [place] [address] Hematocrit (Bld) [Volume fraction] 38.8 % Normal 34.0 - 46.0 [facility] Comment on above: Performed By: #### 2 13096 #### [facility],[address] [place], [place] [id number] Hemoglobin (Bld) [Mass/Vol] 13.5 g/dL Normal 12.0 - 16.0 [facility] Comment on above: Performed By: #### 2 25500 #### [place] [address] Lymph # 1.69 x10EE3/UL Normal 0.80 - 2.80 [facility] Comment on above: Performed By: #### 2 11889 #### [place] [address] Lymphocytes/100 WBC (Bld) 19.0 % Low 20.0 - 45.0 [facility] Comment on above: Performed By: #### 2 35170 #### [facility],[address] [place] [address] MANUAL DIFF N/A Normal [facility] Comment on above: Performed By: #### 2 85803 #### [place] [address] MCH (RBC) [Entitic mass] 33 pg Normal 27 - 33 [facility] Comment on above: Performed By: #### 2 02697 #### [place] [address] MCHC 35 X10 3 Normal 32 - 36 [facility] Comment on above: Performed By: #### 2 62185 #### [place] [address] MCV (RBC) [Entitic vol] 95 fL Normal 80 - 99 [facility] Comment on above: Performed By: #### 2 81624 #### [place] [address] [place] # 0.59 x10EE3/UL Normal 0.20 - 1.00 [facility] Comment on above: Performed By: #### 2 07201 #### [place] [address] MONOS % 6.7 % Normal 0.0 - 10.0 [facility] Comment on above: Performed By: #### 2 43430 #### [facility],[address] [place] [address] Morphology Rogelio (Bld) [Interp] N/A Normal [facility] Comment on above: Performed By: #### 2 24105 #### [facility],[address] [place] [address] Neut # 6.54 x10EE3/UL Normal 1.50 - 7.10 [facility] Comment on above: Performed By: #### 2 38281 #### [facility],[address] [place] [address] Neutrophils/100 WBC (Bld) 73.4 % Normal 46.0 - 76.0 [facility] Comment on above: Performed By: #### 2 59206 #### [facility],[address] [place] [address] PLATELET 572 x10EE3/UL High 150 - 450 [facility] Comment on above: Performed By: #### 2 [id number] #### [facility],[address] [place] [address] Platelet mean volume (Bld) [Entitic vol] 6.9 fL Normal 6.6 - 10.5 [facility] Comment on above: Result Comment: AUTO MATED DIFFERENTIAL Performed By: #### 2 [id number] #### [facility],[address] [place], [place] [id number] RBC 4.09 x 10EE6/UL Low 4.10 - 5.30 [facility] Comment on above: Performed By: #### 2 04162 #### [facility],[address] [place] [address] WBC 8.9 x 10EE3/UL Normal 4.5 - 10.8 [facility] Comment on above: Performed By: #### 2 26271 #### [facility],[address] [place] [address] CHEST 1 VIEWon 09-30-2024 CHEST [address] [address] Patient: JEREMY TURNER Phone#: : 1960 Age: 64 Gender: F Pt. Type: In Account: [id number] Location: 010 Ordering: [facility] Exam Date: 09/30/2024/9:19 Family Phys: YASSER OMRAN Charge Code: [id number] Physician: Trimble Order #: [id number] Dose#: PROCEDURE: X-RAY CHEST 1 VIEW COMPARISON: [facility], XR, CHEST 1 VIEW, 09/29/2024, 11:19. INDICATIONS: Pre-op. FINDINGS: LUNGS: Mild chronic interstitial changes present. No significant pulmonary parenchymal abnormalities. VASCULATURE: Normal. Unremarkable pulmonary vasculature. CARDIAC: Normal. No cardiac silhouette abnormality or cardiomegaly. MEDIASTINUM: Normal. No visible mass or adenopathy. PLEURA: Normal. No effusion or pleural thickening. BONES: Normal. No fracture or visible bony lesion. OTHER: Negative. CONCLUSION: No acute disease. No significant change has occurred. Dictated by: Monique Christina MD on 09/30/2024 at 9:57 Approved by: Monique Christina MD on 09/30/2024 at 9:59 Normal [facility] CV VENOUS LEG LTon CV VENOUS LEG LT [address] [address] Patient: JEREMY TURNER Phone#: : 1960 Age: 64 Gender: F Pt. Type: In Account: [id number] Location: 010 Ordering: [facility] Exam Date: 09/30/2024/10:05 Family Phys: YASSER OMRAN Charge Code: [id number] Physician: Trimble Order #: [id number] Dose#: PROCEDURE: VENOUS DOPPLER LT LEG COMPARISON: None. INDICATIONS: Trauma TECHNIQUE: Color duplex Doppler ultrasound evaluation analysis was performed in the usual manner. CHANGE CONTROL SPECIALIST: SUNNY IRIZARRY Brunilda [facility] RISK FACTORS FOR VENOUS DISEASE: LE trauma/injury EXAMINATION: RIGHT +Present -Reduced o Absent LEFT SPONT PHASIC AUG REFLUX COMP SPONT PHASIC AUG REFLUX COMP + + + o + CFV + + + o + SFJ + FV (prox) + + + o + FV (mid) + FV (dist) + POP V + + + o + T/P TRUNK + + + o + PTV + + + o + PERONEAL V + + + o + GSV + GASTROC SOLEAL V CHANGE CONTROL SPECIALIST'S NOTES: FINDINGS: THROMBI: None visible. Continued Report - Page 2 of 2 Patient: JEREMY TURNER Phone#: : 1960 Age: 64 Gender: F Pt. Type: In Account: [id number] Location: 010 Ordering: [facility] Exam Date: 09/30/2024/10:05 Family Phys: EDD RINALDI Charge Code: [id number] Physician: Trimble Order #: [id number] Dose#: COMPRESSIBILITY: Normal. OTHER: Negative. CONCLUSION: 1. There is no evidence of superficial or deep vein thrombus. Dictated by: Monique Christina MD on 09/30/2024 at 10:44 Approved by: Monique Christina MD on 09/30/2024 at 10:45 Normal [facility] HIP COMPLETE LT MIN 2 VIEWS W/PELVISon 09-30-2024 HIP COMPLETE LT MIN 2 VIEWS W/PELVIS [place] [address] Patient: JEREMY TURNER Phone#: : 1960 Age: 64 Gender: F Pt. Type: In Account: [id number] Location: 010 Ordering: [facility] Exam Date: 09/30/2024/18:47 Family Phys: EDD RINALDI Charge Code: [id number] Physician: Trimble Order #: [id number] Dose#: PROCEDURE: X-RAY HIP LT COMPLETE MIN 2 VIEWS W/PELVIS COMPARISON: [facility], XR, HIP COMPLETE LT, 09/29/2024, 10:33. INDICATIONS: Post op MESFIN. FINDINGS: BONES: Postoperative changes of left knee arthroplasty with femoral and acetabular hardware components. Femoral hardware seated within the acetabular component. SOFT TISSUES: Expected postoperative air in the soft tissues. Cutaneous francis are present. EFFUSION: None visible. OTHER: Atherosclerotic calcifications CONCLUSION: 1. Expected postoperative changes of left hip arthroplasty Dictated by: Emili Quintero MD on 09/30/2024 at 19:24 Approved by: Emili Quintero MD on 09/30/2024 at 19:26 Normal [facility] ANKLE COMPLETE LTon 09-30-19 25 ANKLE COMPLETE LT [place] [address] Patient: JEREMY TURNER Phone#: : 1960 Age: 64 Gender: F Pt. Type: ER Account: [id number] Location: [facility] Ordering: AMBREEN FERRERA Exam Date: 09/29/2024/10:03 Family Phys: EDD RINALDI Charge Code: [id number] Physician: Trimble Order #: [id number] Dose#: PROCEDURE: X-RAY ANKLE COMPLETE LT MIN 3 VIEWS COMPARISON: None. INDICATIONS: Ankle pain. FINDINGS: BONES: Normal. No significant arthropathy or acute abnormality. Bony hypertrophy is present at the dorsal aspect of the 2nd tarsal metatarsal joint. Remote fracture cannot be excluded. SOFT TISSUES: Moderate circumferential soft tissue swelling is present. EFFUSION: None visible. OTHER: Negative. CONCLUSION: 1. There is no evidence of acute bone abnormality. Dictated by: Monique Christina MD on 09/29/2024 at 23:56 Approved by: Monique Christina MD on 09/30/2024 at 0:00 Normal [facility] CBC + DIFFon 09-29-2024 Baso # 0.01 x10EE3/UL Normal 0.00 - 0.10 [facility] Comment on above: Performed By: #### 2 34853 #### [facility],[address],[place] [address] Basophils/100 WBC (Bld) 0.1 % Normal 0.0 - 2.0 [facility] Comment on above: Performed By: #### 2 90741 #### [facility],[address] [place] [address] CBC + DIFF Normal [facility] Comment on above: Result Comment: CBC- COMPLETE BLOOD COUNT Performed By: #### 2 40047 #### [facility],[address] [place] [address] EO # 0.10 x10EE3/UL Normal 0.00 - 0.50 [facility] Comment on above: Performed By: #### 2 12294 #### [facility],[address] [place] [address] Eosinophils/100 WBC (Bld) 1.1 % Normal 0.0 - 7.0 [facility] Comment on above: Performed By: #### 2 82809 #### [facility],[address] [place] [address] Erythrocyte distribution width (RBC) [Ratio] 13.0 % Normal 12.0 - 15.6 [facility] Comment on above: Performed By: #### 2 25558 #### [facility],[address] [place] [address] Hematocrit (Bld) [Volume fraction] 35.4 % Normal 34.0 - 46.0 [facility] Comment on above: Performed By: #### 2 06471 #### [facility],[address] [place], [place] [address] Hemoglobin (Bld) [Mass/Vol] 12.2 g/dL Normal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 Overview Chest 1V CMP Foot L Complete Hip L 2+Views w/AP Pelvis Knee L Complete Urinalysis CLINICAL IMPRESSION CLOSED DISPLACED TRANSVERSE FRACTURE OF THE NECK OF THE LEFT FEMUR 4 of 4 Normal [facility] ED VITALS FLOW SHEETon 09-29 ED VITALS FLOW SHEET Vitals Vital Sign Flow Sheet [address] [place] [address] [id number] 09/29/2024 Patient: JEREMY TURNER Sex: Female : 1960 Age: 64y Measurements Wt: 56.7 kg, Ht/Sami: 62.0 in, BMI: 22.86 Measured Time BP MAP HR RR O2Sat ETCO2 Temp Pain GCS RTS 13:11 09/29/2024 86 93% 13:09 09/29/2024 157/71 99 79 12:48 09/29/2024 144/112 119 83 12:26 09/29/2024 85 94% 12:24 09/29/2024 165/85 100 87 12:21 09/29/2024 86 95% 12:16 09/29/2024 88 94% 12:11 09/29/2024 79 95% 12:09 09/29/2024 159/82 92 81 12:06 09/29/2024 85 93% 12:01 09/29/2024 87 94% 11:56 09/29/2024 83 93% 11:55 09/29/2024 160/86 101 83 11:51 09/29/2024 79 96% 11:46 09/29/2024 82 94% 1 of 2 Vitals Measured Time BP MAP HR RR O2Sat ETCO2 Temp Pain GCS RTS 11:41 09/29/2024 83 95% 11:40 09/29/2024 143/83 103 81 10:06 09/29/2024 92 94% 09:56 09/29/2024 99 94% 09:55 09/29/2024 176/88 117 96 09:51 09/29/2024 100 94% 09:46 09/29/2024 97 95% 09:41 09/29/2024 96 92% 09:40 09/29/2024 157/119 131 98 09:36 09/29/2024 102 95% 09:31 09/29/2024 97 95% 09:26 09/29/2024 99 93% 09:25 09/29/2024 149/83 129 94 09:25 09/29/2024 149/83 105 97 19 94% 99.1 F 10 2 of 2 Normal [facility] FOOT COMPLETE LTon FOOT COMPLETE LT [place] [address] Patient: JEREMY TURNER Phone#: : 1960 Age: 64 Gender: F Pt. Type: ER Account: [id number] Location: [facility] Ordering: AMBREEN FERRERA Exam Date: 09/29/2024/10:27 Family Phys: EDD RINALDI Charge Code: 807850 Physician: Trimble Order #: [id number] Dose#: PROCEDURE: X-RAY FOOT LT COMPLETE MIN 3 VIEWS COMPARISON: [facility], , FOOT LT COMPLETE, 12/01/2022, 17:12. INDICATIONS: Pain. FINDINGS: BONES: Bony hypertrophy is present dorsally the tarsal metatarsal joint, possibly 2nd. There is no evidence of acute bone abnormality. SOFT TISSUES: Negative. No visible soft tissue swelling. EFFUSION: None visible. OTHER: Negative. CONCLUSION: 1. There is no evidence of acute bone abnormality. Dictated by: Monique Christina MD on 09/30/2024 at 0:01 Approved by: Monique Christina MD on 09/30/2024 at 0:03 Normal [facility] HIP COMPLETE LT MIN 2 VIEWS W/PELVISon 09-29-2024 HIP COMPLETE LT MIN 2 VIEWS W/PELVIS [address] [address] Patient: JEREMY TURNER Phone#: : 1960 Age: 64 Gender: F Pt. Type: ER Account: [id number] Location: 052 Ordering: AMBREEN PATRICIA Exam Date: 09/29/2024/10:33 Family Phys: YASSER OMRAN Charge Code: [id number] Physician: Trimble Order #: [id number] Dose#: PROCEDURE: X-RAY HIP LT COMPLETE MIN 2 VIEWS W/PELVIS COMPARISON: None. INDICATIONS: Pain. FINDINGS: BONES: Femoral neck fracture with superior subluxation is present. The adjacent pelvis is intact. SOFT TISSUES: Vascular calcification is present. EFFUSION: None visible. OTHER: Negative. CONCLUSION: 1. Femoral neck fracture with superior subluxation. Dictated by: Monique Christina MD on 09/30/2024 at 0:05 Approved by: Monique Christina MD on 09/30/2024 at 0:07 Normal [facility] KNEE COMPLETE LT MIN 4 VIEWS on 09-29-2024 KNEE COMPLETE LT MIN 4 VIEWS [place] [address] Patient: JEREMY TURNER Phone#: : 1960 Age: 64 Gender: F Pt. Type: ER Account: [id number] Location: 052 Ordering: AMBREEN FERRERA Exam Date: 09/29/2024/10:29 Family Phys: YASSER OMRAN Charge Code: [id number] Physician: Trimble Order #: [id number] Dose#: PROCEDURE: X-RAY KNEE LT COMPLETE 4 VIEWS COMPARISON: None. INDICATIONS: Pain. FINDINGS: BONES: Normal. No significant arthropathy or acute abnormality. SOFT TISSUES: Negative. No visible soft tissue swelling. EFFUSION: None visible. OTHER: Negative. CONCLUSION: No acute disease. Dictated by: Monique Christina MD on 09/30/2024 at 0:03 Approved by: Monique Christina MD on 09/30/2024 at 0:04 Normal [facility] URINALYSISon 09-29-2024 Bilirubin Ql (U) Negative Normal NORMAL: NEGATIVE [facility] Comment on above: Performed By: #### 2 [id number] #### [facility],[address] [place] [address] Clarity (U) clear Normal NORMAL: CLEAR [facility] Comment on above: Performed By: #### 2 [id number] #### [facility],[address] [place] [address] Color (U) yellow Normal NORMAL: YELLOW [facility] Comment on above: Performed By: #### 2 17398 #### [facility],[address] [place] [address] 15558 Glucose Ql (U) NORM Normal NORMAL: NORMAL [facility] Comment on above: Performed By: #### 2 84099 #### [facility],[address] [place] [address] 620[address] Hemoglobin Ql (U) Negative Normal NORMAL: NEGATIVE [facility] Comment on above: Performed By: #### 2 96399 #### [facility],[address] [place] [address]6076 Ketone 5 Abnormal NORMAL: NEGATIVE [facility] Comment on above: Performed By: #### 2 82280 #### [facility],[address] [place] [address]291 Leukocytes Negative Normal NORMAL: NEGATIVE [facility] Comment on above: Performed By: #### 2 74921 #### [facility],[address] [place] [address] 66606 Nitrite Ql (U) Negative Normal NORMAL: NEGATIVE [facility] Comment on above: Performed By: #### 2 61040 #### [facility],[address] [place] [address] 80949 pH (U) 7 [pH] Normal NORMAL: 5.0-8.0 [facility] Comment on above: Performed By: #### 2 92668 #### [facility],[address] [place] [address] 86393 Protein Ql (U) 15 Abnormal NORMAL: NEGATIVE [facility] Comment on above: Performed By: #### 2 91747 #### [facility],[address] [place] [address] Sp [place] 1.015 Normal NORMAL: 1.010-1.030 [facility] Comment on above: Performed By: #### 2 45139 #### [facility],[address] [place] [address] Specimen Type R Normal [facility] Comment on above: Performed By: #### 2 26259 #### [facility],[address] [place], [place] [id number] Urinalysis dipstick W Reflex Microscopic panel (U) NOT INDICATED Normal [facility] Comment on above: Performed By: #### 2 74365 #### [facility],[address] [place] [address]40 Urobilinog NORM Normal NORMAL: NORMAL [facility] Comment on above: Performed By: #### 2 00342 #### [facility],[address] [place], [place] [id number] OPERATIVE PROCEDURESon 08-30 OPERATIVE PROCEDURES [facility] OPERATIVE REPORT NAME ACCOUNT SEX AGE ADMIT DISCHARGE PT MED. RECORD# NUMBER DATE DATE TYPE JEREMY TURNER [id number] F 64 08/30/24 2 [address]7213 ROOM: [facility] DATE OF : 1960 DICTATING PHYSICIAN: Harvey Chapa DATE OF PROCEDURE: August 30, 2024 SURGEON: Harvey Chapa DO COOK BOAT: None. ANESTHESIOLOGIST: ANESTHETIC: IV general. PRE-PROCEDURE DIAGNOSES: (1) Lumbosacral spondylosis/M47.817. (2) Lumbar spondylosis/M47.816. POST-PROCEDURE DIAGNOSES: (1) Lumbosacral spondylosis/M47.817. (2) Lumbar spondylosis/M47.816. PROCEDURE PERFORMED: Radiofrequency lesioning of the medial branch block of the L4-5 and L5-S1 lumbar facets under fluoroscopic guidance. COMPLICATIONS: None. INTRAVENOUS FLUIDS: Per Anesthesia. ESTIMATED BLOOD LOSS: None. INDICATIONS: This is a 64-year-old female with severe axial pain refractory to medications. She underwent lumbar facet joint injections with excellent but transient relief so we discussed radiofrequency lesioning for more prolonged relief, and she agrees to the risks and benefits. Given the pain of radiofrequency lesioning, IV anesthesia will be utilized by the Anesthesia Department. DESCRIPTION OF PROCEDURE: This 64-year-old female was taken to the operating room and was placed in the prone position. Under sterile prep and drape of the lumbar region, the bilateral L4-5 and L5-S1 lumbar facets were identified utilizing fluoroscopy. A stimulating needle was placed into the lateral aspect of each joint under live fluoroscopic x-ray. After appropriate confirmation and negative aspiration, each needle was then stimulated to reproduce the pain, followed by a motor response. There was no Page 1 of 2 JEREMY TURNER Operative Report JEREMY TURNER : 1960 motor response at any of the 4 levels. Prior to RF lesioning, the patient was re-sedated, and each needle was RF lesioned at 80 degrees Celsius for 90 seconds. Prior to needle removal, Kenalog 20 mg with lidocaine 1% preservative-free 0.25 mL was injected into each needle. The needles were all then removed intact. The patient was transferred to ambulatory surgery in satisfactory condition. Dictated By: Harvey Chapa DO 08/30/24 08:14 JOB #: [id number] Transcribed By: scotty 08/30/24 08:42 Electronically signed by: E-SIGN: HARVEY CHAPA 08/30/24 09:58 Page 2 of 2 JEREMY TURNER Operative Report Normal [facility] Bone density reportOrdered B y: Rick Hinkle on 08-27-2024 Study report Skeletal system DXA [facility] Imaging Services [address] [place] [address] Dexa Bone Density Study MR#: [id number] Acct: [id number] Name: JEREMY TURNER Rep #: [id number] : 1960 F 64 From: Mirza Hinkle MD PCP: Dr. Sachin Blackwood MD Status: REG C LI Study:Dexa Bone Density Study Date of Exam: 08/27/24 Exam# [id number] Ordering Dr: Sachin Blackwood MD PROCEDURE: DEXA BONE DENSITY STUDY 08/27/2024 REASON FOR EXAM: F, age 64 y/o . Postmenopausal. TECHNIQUE: DXA scan of sites with data reported below. REFERENCE LINKS: ISCD Adult Positions COMPARISON: None FINDINGS: BMD and T-SCORES Lumbar spine: 1.103 g/cm2, T-score 0.5 Levels: L1 through L4 Left femoral neck: 0.549 g/cm2, T-score -2.7 Femoral neck comparison data not recommended for monitoring change. Left total hip: 0.764 g/cm2, T-score -1.5 Right femoral neck: 0.559 g/cm2, T-score -2.6 Femoral neck comparison data not recommended for monitoring change. Right total hip: 0.752 g/cm2, T-score -1.6 The World Health Organization has defined the following categories based on bonedensity: Normal bone density: T-score equal to or greater than -1.0 Osteopenia: T-score between -1.0 and -2.5 Osteoporosis: T-score equal to or less than -2.5 The patient does meet the pharmacological treatment recommendations for prevention of osteoporosis. BD/Dexa Bone Density Study IMPRESSION: OSTEOPOROSIS. Recommend follow-up as clinically warranted. Reading Location: [id number] CC: Dr. Sachin Blackwood MD ~ Staff Nuclear Medicine Technologist: Signed [facility] Dexa Bone Density Studyon Dexa Bone Density Study [facility] Imaging Services [address] [place] [address] [id number] Dexa Bone Density Study MR#: [id number] Acct: [id number] Name: JEREMY TURNER Rep #: [id number] : 1960 64 From: Rick tran MD PCP: Dr. Sachin Blackwood MD Status: REG CLI Study: Dexa Bone Density Study Date of Exam: 08/27/24 Exam# [id number] Ordering Dr: Sachin Blackwood MD PROCEDURE: DEXA BONE DENSITY STUDY 08/27/2024 REASON FOR EXAM: F, age 64 y/o . Postmenopausal. TECHNIQUE: DXA scan of sites with data reported below. [facility] COMPARISON: None FINDINGS: BMD and T-SCORES Lumbar spine: 1.103 g/cm2, T-score 0.5 Levels: L1 through L4 Left femoral neck: 0.549 g/cm2, T-score -2.7 Femoral neck comparison data not recommended for monitoring change. Left total hip: 0.764 g/cm2, T-score -1.5 Right femoral neck: 0.559 g/cm2, T-score -2.6 Femoral neck comparison data not recommended for monitoring change. Right total hip: 0.752 g/cm2, T-score -1.6 The World Health Organization has defined the following categories based on bone density: Normal bone density: T-score equal to or greater than -1.0 Osteopenia: T-score between -1.0 and -2.5 Osteoporosis: T-score equal to or less than -2.5 The patient does meet the pharmacological treatment recommendations for prevention of osteoporosis. BD/Dexa Bone Density Study IMPRESSION: OSTEOPOROSIS. Recommend follow-up as clinically warranted. Reading Location: [facility] CC: Dr. Sachin Blackwood MD Staff Nuclear Medicine Technologist: Signed Normal [facility] Absolute lymphocyte countOrd ered By: Sachin Blackwood on 08-08-2024 Lymphocytes Auto (Unsp spec) [#/Vol] 2.85 10*3/uL 0.83-4.51 [facility] Absolute neutrophil countOrd ered By: Sachin Blackwood on 08-08-2024 Neutrophils (Bld) [#/Vol] 5.7 10*3/uL 2.0-7.7 [facility] Anion gap in Serum or Plasma Ordered By: Sachin Blackwood on 08-08-2024 Anion gap [Moles/Vol] 16 mmol/L High 5-15 [facility] Automated lymphocyte count a s percentage of total leukocytesOrdered By: Sachin Blackwood on 08-08-2024 Lymphocytes/100 WBC Auto (Unsp spec) 28.8 % - [facility] BUN/creatinine ratioOrdered By: Sachin Blackwood on 08-08-2024 Urea nitrogen/Creatinine [Mass ratio] 10.5 mg/mg 10- [facility] Basophil percentageOrdered B y: Sachin Blackwood on 08-08-2024 Basophils/100 WBC (Bld) 1.1 % High 0-1 [facility] Bilirubin, totalOrdered By: Sachin Blackwood on 08-08-2024 Bilirubin [Mass/Vol] 0.27 mg/dL 0.00-1.30 [facility] CBC W/Diff, Automatedon 07-17 Absolute Lymph 2.85 X10 3/uL Normal 0.83-4.51 [facility] Comment on above: Performed By: #### L 506.1001, L100.0100, L3890.6301, L500.4100, L500.4050, L501.9520 #### [facility] [address] [place], [address] Absolute Neut 5.7 X10 3/uL Normal 2.0-7.7 [facility] Comment on above: Performed By: #### L 506.1001, L100.0100, L3890.6301, L500.4100, L500.4050, L501.9520 #### [facility] [address] [place], [address] Basophils/100 WBC (Bld) 1.1 % High 0-1 [facility] Comment on above: Performed By: #### L 506.1001, L100.0100, L3890.6301, L500.4100, L500.4050, L501.9520 #### [facility] [address] [place], [address] Eosinophils/100 WBC (Bld) 2.6 % Normal 0-5 [facility] Comment on above: Performed By: #### L 506.1001, L100.0100, L3890.6301, L500.4100, L500.4050, L501.9520 #### [facility] [address] [place], [address] Erythrocyte distribution width (RBC) [Ratio] 12.4 % Normal 11.6-14.6 [facility] Comment on above: Performed By: #### L 506.1001, L100.0100, L3890.6301, L500.4100, L500.4050, L501.9520 #### [facility] [address] [place], [address] Hematocrit (Bld) [Volume fraction] 43.8 % Normal 37-47 [facility] Comment on above: Performed By: #### L 506.1001, L100.0100, L3890.6301, L500.4100, L500.4050, L501.9520 #### [facility] [address] [place], [address] Hemoglobin (Bld) [Mass/Vol] 14.4 g/dL Normal 12.0-15.0 [facility] Comment on above: Performed By: #### L 506.1001, L100.0100, L3890.6301, L500.4100, L500.4050, L501.9520 #### [facility] [address] [place], [address] IG% 0.300 Normal 0.0-0.9 [facility] Comment on above: Result Comment: IG% - Immature Granulocytes (promyelocytes, myelocytes and metamyelocytes) > 1% indicates that a LEFT SHIFT is Present. Performed By: #### L 506.1001, L100.0100, L3890.6301, L500.4100, L500.4050, L501.9520 #### [facility] [address] [place], [address] Lymphocytes/100 WBC (Bld) 28.8 % Normal 19-41 [facility] Comment on above: Performed By: #### L 506.1001, L100.0100, L3890.6301, L500.4100, L500.4050, L501.9520 #### [facility] [address] [place], [address] MCH (RBC) [Entitic mass] 31.3 pg Normal 27.0-32.0 [facility] Comment on above: Performed By: #### L 506.1001, L100.0100, L3890.6301, L500.4100, L500.4050, L501.9520 #### [facility] [address] [place], [address] MCHC (RBC) [Mass/Vol] 32.9 g/dL Normal 32-36 [facility] Comment on above: Performed By: #### L 506.1001, L100.0100, L3890.6301, L500.4100, L500.4050, L501.9520 #### [facility] [address] [place], [address] MCV (RBC) [Entitic vol] 95.2 fL Normal 81-99 [facility] Comment on above: Performed By: #### L 506.1001, L100.0100, L3890.6301, L500.4100, L500.4050, L501.9520 #### [facility] [address] [place], [address] Monocytes/100 WBC (Bld) 9.4 % Normal 0-10 [facility] Comment on above: Performed By: #### L 506.1001, L100.0100, L3890.6301, L500.4100, L500.4050, L501.9520 #### [facility] [address] [place], [address] Neutrophils/100 WBC (Bld) 57.8 % Normal 47-70 [facility] Comment on above: Performed By: #### L 506.1001, L100.0100, L3890.6301, L500.4100, L500.4050, L501.9520 #### [facility] [address] [place], [address] Nucleated RBC (Bld) [#/Vol] 0 10*3/uL Normal 0-5 [facility] Comment on above: Performed By: #### L 506.1001, L100.0100, L3890.6301, L500.4100, L500.4050, L501.9520 #### [facility] [address] [place], [address] Platelet mean volume (Bld) [Entitic vol] 9.5 fL Normal 6.2-12.0 [facility] Comment on above: Performed By: #### L 506.1001, L100.0100, L3890.6301, L500.4100, L500.4050, L501.9520 #### [facility] [address] [place], [address] Platelets (Bld) [#/Vol] 559 10*3/uL High 150-450 [facility] Comment on above: Performed By: #### L 506.1001, L100.0100, L3890.6301, L500.4100, L500.4050, L501.9520 #### [facility] [address] [place], [address] RBC (Bld) [#/Vol] 4.60 10*6/uL Normal 4.2-5.4 [facility] Comment on above: Performed By: #### L 506.1001, L100.0100, L3890.6301, L500.4100, L500.4050, L501.9520 #### [facility] [address] [place], [address] RDW SD 43.3 fl Normal 35.1-43.9 [facility] Comment on above: Performed By: #### L 506.1001, L100.0100, L3890.6301, L500.4100, L500.4050, L501.9520 #### [facility] [address] [place], [address] WBC (Bld) [#/Vol] 9.9 10*3/uL Normal 4.4-11.0 [facility] Comment on above: Performed By: #### L 506.1001, L100.0100, L3890.6301, L500.4100, L500.4050, L501.9520 #### [facility] [address] [place], [address] Calculated very low density lipoprotein (VLDL) cholesterol measurementOrdered By: Sachin Blackwood on 08-08-2024 Calculated very low density lipoprotein (VLDL) cholesterol measurement 29 mg/dL 5-40 [facility] Carbon dioxide, total [Moles /volume] in Central venous bloodOrdered By: Sachin Blackwood on 08-08-2024 CO2 [Moles/Vol] 22.8 mmol/L 21.0-32.0 [facility] Chloride assayOrdered By: Elijah Blackwood on 08-08-2024 Chloride [Moles/Vol] 101 mmol/L 98-108 [facility] Comprehensive Metabolic Prof ilon 08-08-2024 Albumin [Mass/Vol] 4.8 g/dL Normal 3.4-4.8 [facility] Comment on above: Performed By: #### L 506.1001, L100.0100, L3890.6301, L500.4100, L500.4050, L501.9520 #### [facility] [address] [place], [address] Albumin/Globulin [Mass ratio] 1.5 {ratio} Normal 0.9-2.4 [facility] Comment on above: Performed By: #### L 506.1001, L100.0100, L3890.6301, L500.4100, L500.4050, L501.9520 #### [facility] [address] [place], [address] ALK PHOS 74 U/L Normal 35-104 [facility] Comment on above: Performed By: #### L 506.1001, L100.0100, L3890.6301, L500.4100, L500.4050, L501.9520 #### [facility] [address] [place], [address] ALT [Catalytic activity/Vol] 20 U/L Normal <=34 [facility] Comment on above: Performed By: #### L 506.1001, L100.0100, L3890.6301, L500.4100, L500.4050, L501.9520 #### [facility] [address] [place], [address] AST [Catalytic activity/Vol] 23 U/L Normal <=31 [facility] Comment on above: Performed By: #### L 506.1001, L100.0100, L3890.6301, L500.4100, L500.4050, L501.9520 #### [facility] [address] [place], [address] Bilirubin [Mass/Vol] 0.27 mg/dL Normal 0.00-1.30 [facility] Comment on above: Performed By: #### L 506.1001, L100.0100, L3890.6301, L500.4100, L500.4050, L501.9520 #### [facility] [address] [place], [address] BUN/CRE 10.5 RATIO Normal 10-20 [facility] Comment on above: Performed By: #### L 506.1001, L100.0100, L3890.6301, L500.4100, L500.4050, L501.9520 #### [facility] [address] [place], [address] Calcium [Mass/Vol] 10.1 mg/dL Normal 7.6-11.0 [facility] Comment on above: Performed By: #### L 506.1001, L100.0100, L3890.6301, L500.4100, L500.4050, L501.9520 #### [facility] [address] [place], [address] Chloride [Moles/Vol] 101 mmol/L Normal 98-108 [facility] Comment on above: Performed By: #### L 506.1001, L100.0100, L3890.6301, L500.4100, L500.4050, L501.9520 #### [facility] [address] [place], [address] CO2 [Moles/Vol] 22.8 mmol/L Normal 21.0-32.0 [facility] Comment on above: Performed By: #### L 506.1001, L100.0100, L3890.6301, L500.4100, L500.4050, L501.9520 #### [facility] [address] [place], [address] Creatinine [Mass/Vol] 1.03 mg/dL Normal 0.70-1.20 [facility] Comment on above: Performed By: #### L 506.1001, L100.0100, L3890.6301, L500.4100, L500.4050, L501.9520 #### [facility] [address] [place], [address] GAP 16 High 5-15 [facility] Comment on above: Performed By: #### L 506.1001, L100.0100, L3890.6301, L500.4100, L500.4050, L501.9520 #### [facility] [address] [place], [address] GFR/1.73 sq M.predicted among non-blacks MDRD (S/P/Bld) [Vol rate/Area] 60 mL/min/{1.73_m2} Normal >60 [facility] Comment on above: Result Comment: mL/m in/1.73m2 CKD-EPI Creatinine Equation (2020) Performed By: #### L 506.1001, L100.0100, L3890.6301, L500.4100, L500.4050, L501.9520 #### [facility] [address] [place], [address] Globulin (S) [Mass/Vol] 3.2 g/dL Normal 2.2-4.2 [facility] Comment on above: Performed By: #### L 506.1001, L100.0100, L3890.6301, L500.4100, L500.4050, L501.9520 #### [facility] [address] [place], [address] Glucose [Mass/Vol] 94 mg/dL Normal 70-99 [facility] Comment on above: Performed By: #### L 506.1001, L100.0100, L3890.6301, L500.4100, L500.4050, L501.9520 #### [facility] [address] [place], [address] Potassium [Moles/Vol] 3.4 mmol/L Normal 3.3-5.1 [facility] Comment on above: Performed By: #### L 506.1001, L100.0100, L3890.6301, L500.4100, L500.4050, L501.9520 #### [facility] [address] [place], [address] Sodium [Moles/Vol] 140 mmol/L Normal 133-145 [facility] Comment on above: Performed By: #### L 506.1001, L100.0100, L3890.6301, L500.4100, L500.4050, L501.9520 #### [facility] [address] [place], [address] T PROT 7.9 g/dL Normal 5.9-8.4 [facility] Comment on above: Performed By: #### L 506.1001, L100.0100, L3890.6301, L500.4100, L500.4050, L501.9520 #### [facility] [address] [place], [place], [address] Urea nitrogen [Mass/Vol] 11 mg/dL Normal 4-19 [facility] Comment on above: Performed By: #### L 506.1001, L100.0100, L3890.6301, L500.4100, L500.4050, L501.9520 #### [facility] [address] [place], [address] Eosinophil percentageOrdered By: Sachin Blackwood on 08-08-2024 Eosinophils/100 WBC (Bld) 2.6 % 0-5 [facility] Erythrocyte distribution wid th ratioOrdered By: Sachin Blackwood on 08-08-2024 Erythrocyte distribution width (RBC) [Ratio] 12.4 % 11.6-14.6 [facility] Erythrocyte distribution wid th standard deviationOrdered By: Sachin Blackwood on 08-08-2024 Erythrocyte distribution width (RBC) [Ratio] 43.3 fl 35.1-43.9 [facility] Glomerular filtration rate ( GFR) estimation/1.73 sq m using serum, plasma, or whole bOrdered By: Sachin Blackwood on 08-08-2024 GFR/1.73 sq M.predicted among non-blacks MDRD (S/P/Bld) [Vol rate/Area] 60 mL/min/{1.73_m2} >60 [facility] Comment on above: mL/min/1.73m2 CKD-EP I Creatinine Equation (2020) Hematocrit Auto (Bld) [Volum e fraction]Ordered By: Sachin Blackwood on 08-08-2024 Hematocrit (Bld) [Volume fraction] 43.8 % 37-47 [facility] Hemoglobin measurementOrdere d By: Sachin Blackwood on 08-08-2024 Hemoglobin (Bld) [Mass/Vol] 14.4 g/dL 12.0-15.0 [facility] Hepatitis C Antibodyon 08-08 Hepatitis C Ab Non-Reactive Normal Nonreactive [facility] Comment on above: Result Comment: Reac tive: Presumptive evidence of antibodies to HCV. Follow CDC recommendations for supplemental testing. Non-Reactive: Antibodies to HCV were not detected; does not exclude the possibility of exposure to HCV Reactive Results are presumptive evidence of antibodies to HCV. Follow CDC recommendations for supplemental testing. Order confirmation testing: HCV Quant by PCR testing - HCVPCR #[id number] Non Reactive: < 0.8 Equivocal: >/= 0.8 to < 1.0 Reactive: >/= 1.0 The CDC requires that a reactive/equivocal HCV antibody result be sent out for confirmation. HCV Quant by PCR testing. Performed By: #### L 506.1001, L100.0100, L3890.6301, L500.4100, L500.4050, L501.9520 #### [facility] [address] [place], [address] Immature granulocytes/100 WB C Auto (Bld)Ordered By: Sachin Blackwood on 08-08-2024 Immature granulocytes/100 WBC (Bld) 0.300 % 0.0-0.9 [facility] Comment on above: IG% - Immature Granu locytes (promyelocytes, myelocytes and metamyelocytes) > 1% indicates that a LEFT SHIFT is Present. LDL calc ser/plasOrdered By: Sachin Blackwood on 08-08-2024 Cholesterol in LDL [Mass/Vol] 118 mg/dL [facility] Comment on above: Pogteckgit=171-410 m g/dL & Higher Mvij=520 mg/dL or greater Laboratory - Chemistry and C hemistry - challengeOrdered By: Sachin Blackwood on 08-08-2024 AST [Catalytic activity/Vol] 23 U/L <32 [facility] Lipid Profileon 08-08-2024 CHOL:HDL 3.54 Normal [facility] Comment on above: Performed By: #### L 506.1001, L100.0100, L3890.6301, L500.4100, L500.4050, L501.9520 #### [facility] [address] [place], [address] Cholesterol [Mass/Vol] 205 mg/dL High <=200 [facility] Comment on above: Result Comment: Chol esterol level, Desirable <200 mg/dL Borderline high cholesterol 200-239 mg/dL High cholesterol >=240 mg/dL Recommendations of the NCEP Adult Treatment Panel for the following risk-cutoff thresholds for the [place] population. Performed By: #### L 506.1001, L100.0100, L3890.6301, L500.4100, L500.4050, L501.9520 #### [facility] [address] [place], [address] Cholesterol in HDL [Mass/Vol] 58 mg/dL Normal [facility] Comment on above: Result Comment: Maria Elena onal Cholesterol Education Program (NCEP) guidelines: <40 mg/dL: Low HDL-cholesterol (major risk factor for CHD) >= 60 mg/dL: High HDL-cholesterol (negative risk factor for CHD) HDL-cholesterol is affected by a number of factors, e.g. smoking, exercise, hormones, sex and age. Performed By: #### L 506.1001, L100.0100, L3890.6301, L500.4100, L500.4050, L501.9520 #### [facility] [address] [place], [address] Cholesterol in LDL [Mass/Vol] 118 mg/dL Normal [facility] Comment on above: Result Comment: Bord nlsbqk=926-019 mg/dL Higher Gxep=181 mg/dL or greater Performed By: #### L 506.1001, L100.0100, L3890.6301, L500.4100, L500.4050, L501.9520 #### [facility] [address] [place], [address] Cholesterol in VLDL [Mass/Vol] 29 mg/dL Normal 5-40 [facility] Comment on above: Performed By: #### L 506.1001, L100.0100, L3890.6301, L500.4100, L500.4050, L501.9520 #### [facility] [address] [place], [address] Triglyceride [Mass/Vol] 147 mg/dL Normal [facility] Comment on above: Result Comment: The drugs N-Acetylcysteine and Metamizole may falsely depress this assay. Normal range: <150 mg/dL Borderline High: 150-199 mg/dL High: 200-499 mg/dL Very High: >500 mg/dL Performed By: #### L 506.1001, L100.0100, L3890.6301, L500.4100, L500.4050, L501.9520 #### [facility] [address] [place], [place], [address] MCV (mean corpuscular volume ) determinationOrdered By: Sachin Blackwood on 08-08-2024 MCV (RBC) [Entitic vol] 95.2 fL 81-99 [facility] Mean corpuscular hemoglobin (MCH) determinationOrdered By: Sachin Blackwood on 08-08-2024 MCH (RBC) [Entitic mass] 31.3 pg 27.0-32.0 [facility] Mean corpuscular hemoglobin concentration (MCHC) determinationOrdered By: Sachin Blackwood on 08-08-2024 MCHC (RBC) [Mass/Vol] 32.9 g/dL 32-36 [facility] Mean platelet volume determi nationOrdered By: Sachin Blackwood on 08-08-2024 Platelet mean volume (Bld) [Entitic vol] 9.5 fL 6.2-12.0 [facility] Monocyte percentageOrdered B y: Sachin Blackwood on 08-08-2024 Monocytes/100 WBC (Bld) 9.4 % 0-10 [facility] Neutrophil percentageOrdered By: Sachin Blackwood on 08-08-2024 Neutrophils/100 WBC (Bld) 57.8 % 47-70 [facility] Nucleated red blood cell per centageOrdered By: Sachin Blackwood on 08-08-2024 Nucleated RBC/100 WBC (Bld) [Ratio] 0 % 0-5 [facility] Platelet countOrdered By: Elijah Blackwood on 08-08-2024 Platelets (Bld) [#/Vol] 559 10*3/uL High 150-450 [facility] Potassium measurement (mass/ volume)Ordered By: Sachin Blackwood on 08-08-2024 Potassium (Unsp spec) [Mass/Vol] 3.4 mmol/L 3.3-5.1 [facility] RBC Auto (Bld) [#/Vol]Ordere d By: Sachin Blackwood on 08-08-2024 RBC (Bld) [#/Vol] 4.60 10*6/uL 4.2-5.4 [facility] Screening total cholesterol/ high density lipoprotein (HDL) cholesterol ratioOrdered By: Sachin Blackwood 08-08-2024 Cholesterol.total/Chol esterol in HDL [Mass ratio] 3.54 {ratio} [facility] Serum creatinine measurement (mass/volume)Ordered By: Sachin Blackwood 08-08-2024 Creatinine [Mass/Vol] 1.03 mg/dL 0.70-1.20 [facility] Serum globulin measurementOr dered By: Sachin Blackwood 08-08-2024 Globulin (S) [Mass/Vol] 3.2 g/dL 2.2-4.2 [facility] Serum glucose measurement (m ass/volume)Ordered By: Sachin Blackwood 08-08-2024 Glucose [Mass/Vol] 94 mg/dL 70-99 [facility] Serum or plasma alanine lewis otransferase (ALT) measurementOrdered By: Sachin Blackwood 08-08-2024 ALT [Catalytic activity/Vol] 20 U/L <35 [facility] Serum or plasma albumin phoenix urement (mass/volume)Ordered By: Sachin Blackwood 08-08-2024 Albumin [Mass/Vol] 4.8 g/dL 3.4-4.8 [facility] Serum or plasma albumin/glob ulin mass ratioOrdered By: Sachin Blackwood 08-08-2024 Albumin/Globulin [Mass ratio] 1.5 {ratio} 0.9-2.4 [facility] Serum or plasma alkaline jose sphatase measurementOrdered By: Sachin Blackwood 08-08-2024 ALP [Catalytic activity/Vol] 74 U/L 35-104 [facility] Serum or plasma calcium phoenix urement (mass/volume)Ordered By: Sachin Blackwood 08-08-2024 Calcium [Mass/Vol] 10.1 mg/dL 7.6-11.0 [facility] Serum or plasma cholesterol in HDL measurement (mass/volume)Ordered By: Sachin Blackwood 08-08-2024 Cholesterol in HDL [Mass/Vol] 58 mg/dL >40 [facility] Comment on above: National Cholesterol Education Program (NCEP) guidelines:<40 mg/dL: Low HDL-cholesterol (major risk factor for CHD)>= 60 mg/dL: High HDL-cholesterol (negative risk factor for CHD)HDL-cholesterol is affected by a number of factors, e.g. smoking, exercise, hormones, sex and age. Serum or plasma cholesterol measurement (mass/volume)Ordered By: Sachin Blackwood 08-08-2024 Cholesterol [Mass/Vol] 205 mg/dL High <201 [facility] Comment on above: Cholesterol level, D esirable <200 mg/dLBorderline high cholesterol 200-239 mg/dLHigh cholesterol >=240 mg/dLRecommendations of the NCEP Adult Treatment Panel for the following risk-cutoff thresholds for the [place] population. Serum or plasma urea nitroge n measurement (mass/volume)Ordered By: Sachin Blackwood 08-08-2024 Urea nitrogen [Mass/Vol] 11 mg/dL 4-19 [facility] Sodium levelOrdered By: Sachin Blackwood 08-08-2024 Sodium [Moles/Vol] 140 mmol/L 133-145 [facility] TSH DL <= 0.005 mIU/L QnOrde red By: Sachin Blackwood 08-08-2024 TSH Qn 2.830 uIU/mL 0.300-4.200 [facility] Thyroid Stim Hormone (TSH)on 08-08-2024 TSH 2.830 uIU/mL Normal 0.300-4.200 [facility] Comment on above: Performed By: #### L 506.1001, L100.0100, L3890.6301, L500.4100, L500.4050, L501.9520 #### [facility] [address] [place], [address] Total proteinOrdered By: Sachin Blackwood on 08-08-2024 Protein [Mass/Vol] 7.9 g/dL 5.9-8.4 [facility] Triglycerides measurementOrd ered By: Sachin Blackwood on 08-08-2024 Triglyceride [Mass/Vol] 147 mg/dL <199 [facility] Comment on above: The drugs N-Acetylcy steine and Metamizole may falsely depress this assay. Normal range: <150 mg/dLBorderline High: 150-199 mg/dLHigh: 200-499 mg/dLVery High: >500 mg/dL Vitamin D,25 Hydroxyon 08-08 Vitamin D 25-OH 30.5 ng/mL Normal 30-100 [facility] Comment on above: Result Comment: Karrie min D Status Deficiency: <20 ng/mL (50nmol/L) Insufficiency: 20-30 ng/mL (50-75 nmol/L) Sufficiency: 30-100 ng/mL (75-250 nmol/L) Toxicity: >100 ng/mL (>250 nmol/L) Performed By: #### L 100.0100, L506.1001, L501.9520, L500.4050 #### [facility] [address] [place], [address] White blood cell (WBC) count Ordered By: Sachin Blackwood on 08-08-2024 WBC (Bld) [#/Vol] 9.9 10*3/uL 4.4-11.0 [facility] CBC (NO DIFF)on 07-19-2024 CBC panel Auto (Bld) Normal [facility] Comment on above: Result Comment: CBC( WITHOUT DIFFERENTIAL) Performed By: #### 2 [id number] #### [facility],[address] [place] [address] Erythrocyte distribution width (RBC) [Ratio] 12.7 % Normal 12.0 - 15.6 [facility] Comment on above: Performed By: #### 2 99694 #### [facility],[address] [place] [address] Hematocrit (Bld) [Volume fraction] 37.5 % Normal 34.0 - 46.0 [facility] Comment on above: Performed By: #### 2 51932 #### [facility],[address] [place] [address] Hemoglobin (Bld) [Mass/Vol] 12.7 g/dL Normal 12.0 - 16.0 [facility] Comment on above: Performed By: #### 2 08339 #### [facility],[address] [place], [place] [id number] MCH (RBC) [Entitic mass] 32 pg Normal 27 - 33 [facility] Comment on above: Performed By: #### 2 67910 #### [facility],[address] [place] [address] MCHC 34 X10 3 Normal 32 - 36 [facility] Comment on above: Performed By: #### 2 10794 #### [facility],[address] [place] [address]99 MCV (RBC) [Entitic vol] 95 fL Normal 80 - 99 [facility] Comment on above: Performed By: #### 2 24905 #### [facility],[address] [place] [address] PLATELET 568 x10EE3/UL High 150 - 450 [facility] Comment on above: Performed By: #### 2 13761 #### [facility],[address] [place] [address] Platelet mean volume (Bld) [Entitic vol] 7.2 fL Normal 6.6 - 10.5 [facility] Comment on above: Performed By: #### 2 34902 #### [facility],[address] [place] [address] 99587 RBC 3.96 x 10EE6/UL Low 4.10 - 5.30 [facility] Comment on above: Performed By: #### 2 39423 #### [facility],[address] [place] [address] WBC 8.2 x 10EE3/UL Normal 4.5 - 10.8 [facility] Comment on above: Performed By: #### 2 56705 #### [facility],[address] [place] [address]6445 CMP with eGFRon 07-19-2024 AGE 63 years Normal [facility] Comment on above: Performed By: #### 2 73858 #### [facility],[address] [place] [address] 52591 Albumin [Mass/Vol] 3.5 g/dL Normal 3.4 - 5.0 [facility] Comment on above: Performed By: #### 2 96776 #### [facility],[address] [place] [address]706 Albumin/Globulin [Mass ratio] 1.0 {ratio} Normal 0.9 - 1.6 [facility] Comment on above: Performed By: #### 2 23933 #### [facility],[address] [place] [address]013 ALK PHOS 82 U/L Normal 46 - 116 [facility] Comment on above: Performed By: #### 2 52483 #### [facility],[address] [place] [address] 10086 ALT [Catalytic activity/Vol] 48 U/L Normal 16 - 63 [facility] Comment on above: Performed By: #### 2 74777 #### [facility],[address] [place] [address]5832 Anion gap [Moles/Vol] 13 mmol/L Normal 10 - 20 [facility] Comment on above: Performed By: #### 2 42761 #### [facility],[address] [place] [address] 72694 AST [Catalytic activity/Vol] 37 U/L Normal 13 - 39 [facility] Comment on above: Performed By: #### 2 05660 #### [facility],[address] [place] [address]690 B/C RATIO 13 ratio Normal 0 - 30 [facility] Comment on above: Performed By: #### 2 81233 #### [facility],[address] [place] [address]6039 Bilirubin [Mass/Vol] 0.3 mg/dL Normal 0.2 - 1.0 [facility] Comment on above: Performed By: #### 2 95917 #### [facility],[address] [place] [address] 15561 Calcium [Mass/Vol] 8.6 mg/dL Normal 8.5 - 10.1 [facility] Comment on above: Performed By: #### 2 90969 #### [facility],[address] [place] [address] 72113 Chloride [Moles/Vol] 103 mmol/L Normal 98 - 107 [facility] Comment on above: Performed By: #### 2 58658 #### [facility],[address] [place] [address] 66421 CMP with eGFR Normal [facility] Comment on above: Result Comment: COMP REHENSIVE METABOLIC PANEL Performed By: #### 2 57511 #### [facility],[address] [place] [address] 28234 CO2 [Moles/Vol] 27.4 mmol/L Normal 21.0 - 32.0 [facility] Comment on above: Performed By: #### 2 41084 #### [facility],[address] [place] [address] Creatinine [Mass/Vol] 0.69 mg/dL Normal 0.55 - 1.02 [facility] Comment on above: Performed By: #### 2 31000 #### [facility],[address] [place] [address] GFR/1.73 sq M.predicted among non-blacks MDRD (S/P/Bld) [Vol rate/Area] mL/min/{1.73_m2} Normal 60 - 999 [facility] Comment on above: Performed By: #### 2 12606 #### [facility],[address] [place] [address] Result Comment: ACCO RDING TO THE NATIONAL KIDNEY DISEASE EDUCATION PROGRAM(NKDE), A NORMAL eGFR IS A VALUE GREATER THAN OR EQUAL TO 60 ML/MIN/1.73 SQ METERS. CHRONIC KIDNEY DISEASE: <60mL/MIN/1.73 SQ METERS KIDNEY FAILURE: <15mL/MIN/1.73 SQ METERS THIS TEST SHOULD ONLY BE USED FOR PATIENTS 18 YEARS OF AGE AND OLDER. Globulin (S) [Mass/Vol] 3.6 g/dL Normal 1.5 - 3.8 [facility] Comment on above: Performed By: #### 2 03868 #### [facility],[address] [place], [place] [id number] Glucose [Mass/Vol] 110 mg/dL High 74 - 106 [facility] Comment on above: Performed By: #### 2 11336 #### [facility],[address] [place], [place] [address] Potassium [Moles/Vol] 3.8 mmol/L Normal 3.5 - 5.1 [facility] Comment on above: Performed By: #### 2 [id number] #### [facility],[address] [place], [place] [id number] Protein [Mass/Vol] 7.1 g/dL Normal 6.4 - 8.2 [facility] Comment on above: Performed By: #### 2 12961 #### [facility],[address] [place] [address] 95353 Sodium [Moles/Vol] 140 mmol/L Normal 136 - 145 [facility] Comment on above: Performed By: #### 2 66606 #### [facility],[address] [place] [address] 67478 Urea nitrogen [Mass/Vol] 9 mg/dL Normal 7 - 18 [facility] Comment on above: Performed By: #### 2 33049 #### [facility],[address] [place] [address] 74225 HEMOGLOBIN A1C (POM)on 07-19 Glucose [Mass/Vol] 122.6 mg/dL High 0.0 - 0.0 [facility] Comment on above: Result Comment: BLDo HEMOGLOBIN A1C REFERENCE RANGESBLDo Suggested Diagnosis HbA1c(%) HbA1C (mmol/mol Diabetic >/=6.5 >/=48 Prediabetes 5.7 - 6.4 39 - 47 Normal <5.7 <39 Performed By: #### 2 36295 #### [facility],[address] [place] [address] 90855 HbA1c (Bld) [Mass fraction] 5.9 % Normal 0.0 - 6.5 [facility] Comment on above: Performed By: #### 2 12481 #### [facility],[address] [place] [address] 19283 LIPID PROFILEon 07-19-2024 Cholesterol [Mass/Vol] 134 mg/dL Normal 0 - 240 [facility] Comment on above: Performed By: #### 2 28610 #### [facility],[address] [place] [address] 98152 Cholesterol in HDL [Mass/Vol] 54 mg/dL Normal 40 - 60 [facility] Comment on above: Performed By: #### 2 79311 #### [facility],[address] [place] [address] 38555 Cholesterol in LDL [Mass/Vol] 71 mg/dL Normal 0 - 129 [facility] Comment on above: Performed By: #### 2 48554 #### [facility],[address] [place] [address] 32114 Cholesterol.total/Chol esterol in HDL [Mass ratio] 2.5 {ratio} Normal 0.0 - 5.0 [facility] Comment on above: Performed By: #### 2 97160 #### [facility],[address] [place] [address] 08640 Lipid 1996 panel Normal [facility] Comment on above: Result Comment: LIPI D PROFILE Performed By: #### 2 64251 #### [facility],[address] [place] [address] 64067 Triglyceride [Mass/Vol] 43 mg/dL Normal 0 - 150 [facility] Comment on above: Performed By: #### 2 67400 #### [facility],[address] [place] [address] 46060 TSHon 07-19-2024 TSH Qn 1.36 m[IU]/L Normal 0.35 - 3.74 [facility] Comment on above: Performed By: #### 2 10288 #### [facility],[address] [place] [address] 30305 URINALYSISon 07-19-2024 Bilirubin Ql (U) Negative Normal NORMAL: NEGATIVE [facility] Comment on above: Performed By: #### 2 40795 #### [facility],[address] [place] [address] 76142 Clarity (U) clear Normal NORMAL: CLEAR [facility] Comment on above: Performed By: #### 2 19082 #### [facility],[address] [place] [address] 74425 Color (U) yellow Normal NORMAL: YELLOW [facility] Comment on above: Performed By: #### 2 04479 #### [facility],[address] [place] [address] 51021 Glucose Ql (U) NORM Normal NORMAL: NORMAL [facility] Comment on above: Performed By: #### 2 54862 #### [facility],[address] [place] [address] 27512 Hemoglobin Ql (U) Negative Normal NORMAL: NEGATIVE [facility] Comment on above: Performed By: #### 2 61826 #### [facility],[address] [place] [address] 36246 Ketone Negative Normal NORMAL: NEGATIVE [facility] Comment on above: Performed By: #### 2 46928 #### [facility],[address] [place] [address] 69944 Leukocytes Negative Normal NORMAL: NEGATIVE [facility] Comment on above: Performed By: #### 2 11495 #### [facility],[address] [place] [address] 95035 Nitrite Ql (U) Negative Normal NORMAL: NEGATIVE [facility] Comment on above: Performed By: #### 2 02864 #### [facility],[address] [place], [place] [address] pH (U) 7 [pH] Normal NORMAL: 5.0-8.0 [facility] Comment on above: Performed By: #### 2 46703 #### [facility],[address] [place] [address] 72947 Protein Ql (U) 15 Abnormal NORMAL: NEGATIVE [facility] Comment on above: Performed By: #### 2 45123 #### [facility],[address] [place], [place] [address] Sp [place] 1.010 Normal NORMAL: 1.010-1.030 [facility] Comment on above: Performed By: #### 2 29493 #### [facility],[address] [place], [place] [address] Specimen Type R Normal [facility] Comment on above: Performed By: #### 2 20462 #### [facility],[address] [place], [place] [address] Urinalysis dipstick W Reflex Microscopic panel (U) NOT INDICATED Normal [facility] Comment on above: Performed By: #### 2 97311 #### [facility],[address] [place] [address] 70502 Urobilinog 1 Abnormal NORMAL: NORMAL [facility] Comment on above: Performed By: #### 2 42665 #### [facility],[address] [place] [address] 73111 OPERATIVE PROCEDURESon 05-23 OPERATIVE PROCEDURES [facility] OPERATIVE REPORT NAME ACCOUNT SEX AGE ADMIT DISCHARGE PT MED. RECORD# NUMBER DATE DATE TYPE JEREMY TURNER [id number] F 63 05/23/24 2 22227 ROOM: [facility] DATE OF : 1960 DICTATING PHYSICIAN: Harvey Chapa DATE OF PROCEDURE: May 23, 2024 SURGEON: Harvey Chapa DO COOK BOAT: None. ANESTHESIA: IV general. PREPROCEDURE DIAGNOSIS: Cervical spondylosis without myelopathy/M47.812. POSTPROCEDURE DIAGNOSIS: Cervical spondylosis without myelopathy/M47.812. PROCEDURE: Radiofrequency lesioning of the bilateral medial branch block of the C5-6 and C6-7 cervical facets bilaterally under fluoroscopic guidance. COMPLICATIONS: None. IV FLUIDS: Per Anesthesia. ESTIMATED BLOOD LOSS: None. INDICATIONS OF PROCEDURE: This is a 63-year-old female with severe axial pain refractory to medications. She had previous facet joint injections with excellent, but transient relief, and we discussed radiofrequency lesioning for a more prolonged relief. The patient agrees with the risks and benefits. Given the pain of radiofrequency lesioning, IV anesthesia will be utilized by the Anesthesia Department. DESCRIPTION OF OPERATION: This 63-year-old female was taken to the operating room and was placed in the prone position. Under sterile prep of the cervical spine, the bilateral C5-6 and C6-7 cervical facets were identified utilizing fluoroscopy. A stimulating needle was placed into the lateral aspect of each joint under live fluoroscopic x-ray. After appropriate confirmation and negative aspiration, each needle was then stimulated to reproduce the pain followed by a motor response. There was no motor response at any of the four levels. Prior to RF lesioning, the patient was re-sedated and each needle was RF lesioned at 80 degrees Celsius for 90 seconds. Prior to needle removal, Page 1 of 2 JEREMY TURNER Operative Report JEREMY TURNER : 1960 Kenalog 20 mg with lidocaine 1% preservative-free 0.5 mL was injected into each needle. The needles were then removed intact. The patient was then transferred to Ambulatory Surgery in satisfactory condition. Dictated By: Harvey Chapa DO 05/23/24 10:41 JOB #: [id number] Transcribed By: am 05/23/24 11:06 Electronically signed by: E-SIGN: HARVEY CHAPA 05/23/24 12:32 Page 2 of 2 JEREMY TURNER Operative Report Normal [facility] OPERATIVE PROCEDURESon 04-25 OPERATIVE PROCEDURES [facility] OPERATIVE REPORT NAME ACCOUNT SEX AGE ADMIT DISCHARGE PT MED. RECORD# NUMBER DATE DATE TYPE JEREMY TURNER [id number] F 63 04/25/24 2 28910 ROOM: [facility] DATE OF : 1960 DICTATING PHYSICIAN: Harvey Chapa DATE OF PROCEDURE: April 25, 2024 SURGEON: Harvey Chapa DO COOK BOAT: None. ANESTHESIA: Local. PREPROCEDURE DIAGNOSES: 1. Lumbar spondylosis/M47.816. 2. Lumbosacral spondylosis/M47.817. POSTPROCEDURE DIAGNOSES: 1. Lumbar spondylosis/M47.816. 2. Lumbosacral spondylosis/M47.817. PROCEDURE: Bilateral medial branch blocks of the L3-4 and L4-5 lumbar facets under fluoroscopic guidance. COMPLICATIONS: None. IV FLUIDS: None. ESTIMATED BLOOD LOSS: None. INDICATIONS OF PROCEDURE: This is a 63-year-old female with severe back axial pain refractory to medications. Her pain level is an 8 today prior to the procedure. The patient agrees with the risks and benefits of the above. DESCRIPTION OF OPERATION: This 63-year-old female was taken to the operating room and was placed in the prone position. Under sterile prep and drape of the lumbar region, the bilateral L3-4 and L4-5 lumbar facets were identified utilizing fluoroscopy. A #25 gauge needle was placed into the lateral aspect of each joint under live fluoroscopic x-ray. After appropriate confirmation and negative aspiration, Kenalog 20 mg with lidocaine 1% preservative-free 0.5 mL was injected into each needle. The needles were then removed intact. The patient was then transferred to Ambulatory Surgery in satisfactory condition. We did put her through the range of motion of the lumbar spine. Page 1 of 2 JEREMY TURNER Operative Report JEREMY TURNER : 1960 Her pain level went from 8 to 0. This signifies ingestion facet disease and correct needle placement. Dictated By: Harevy Chapa DO 04/25/24 10:08 JOB #: [id number] Transcribed By: am 04/25/24 10:26 Electronically signed by: E-SIGN: HARVEY CHAPA 04/25/24 13:25 Page 2 of 2 JEREMY TURNER Operative Report Normal [facility] Office Visit: Spine Visiton 02-28-2017 Tobacco smoking status NHIS Tobacco smoking status NHIS Invalid Interpretation Code [facility] Work Phone: Tobacco use HS Current every day smoker Invalid Interpretation Code [facility] Work Phone: Vital Signs Date Time Vital Sign Value Performing Clinician Isak robertson 02-28-2017 14:27-0500 BMI (Body Mass Index) 27.43 kg/m2 Obdulio [facility] Work Phone: 02-28-2017 14:27-0500 Height 157.48 cm [facility] Work Phone: 02-28-2017 14:27-0500 Weight 68.04 kg [facility] Work Phone: Encounters Encounter Date Encounter Type Care Provider Facility Start: 11-18-2024 ambulatory [facility] Facility:[facility] Start: 11-11-2024 End: 11-11-2024 ambulatory Obdulio Bowman PHARMACY AFFAIRS ASSISTANT-C Work Phone: -Laboratory Start: 11-11-2024 End: 11-11-[address] Sachin Blackwood MD -Laboratory Work Phone: Start: 11-11-2024 End: 11-11-2024 ambulatory [facility] Facility:[facility] Start: 08-30-2024 End: 08-30-2024 [facility] Start: 08-27-2024 End: 08-27-2024 ambulatory Obdulio Bowman PHARMACY AFFAIRS ASSISTANT-C Work Phone: [facility] Work Phone: Start: 08-27-2024 End: 08-27-[address] Sachin Blackwood MD -Outpatient Bone Densitometry Work Phone: Start: 08-27-2024 End: 08-27-2024 ambulatory Sachin Blackwood Facility:[facility] Start: 08-08-2024 End: 08-08-[address] Sachin Blackwood MD -Laboratory Work Phone: Start: 08-07-2024 End: 08-08-2024 ambulatory [facility]APA [facility] Start: 07-19-2024 End: 07-19-2024 ambulatory EDD RINALDI Tunde [facility] Start: 05-23-2024 End: 05-23-2024 ambulatory OBDULIO PHARMACY AFFAIRS ASSISTANT [facility] Griffiths [facility] Start: 04-25-2024 End: 04-25-2024 ambulatory OBDULIO PHARMACY AFFAIRS ASSISTANT [facility] Griffiths [facility] Start: 03-25-2024 End: 03-25-2024 ambulatory OBDULIO PHARMACY AFFAIRS ASSISTANT [facility] Griffiths [facility] Start: 01-12-2024 End: 01-12-2024 ambulatory OBDULIO PHARMACY AFFAIRS ASSISTANT [facility] Griffiths [facility] Start: 12-05-2023 End: 12-05-2023 ambulatory OBDULIO PHARMACY AFFAIRS ASSISTANT [facility] Start: 02-16-2023 Non-patient / Non-visit MD ABDOUL JEROME [facility] Start: 02-16-2023 End: 02-16-2023 ambulatory MD ABDOUL JEROME [facility] Work Phone: Start: 02-16-2023 End: 02-16-2023 Patient encounter procedure MD ABDOUL JEROME [facility]-Pulmonary Services/Neurology Work Phone: Procedures Date Procedure Procedure Detail Performing Clinician Start: 11-11-2024 Vitamin D, 25-hydrox y measurement Obdulio Teranr PHARMACY AFFAIRS ASSISTANT-C Work Phone: Comment on above: Vitamin D StatusDefi ciency: <20 ng/mL (50nmol/L)Insufficiency: 20-30 ng/mL (50-75 nmol/L)Sufficiency: 30-100 ng/mL (75-250 nmol/L)Toxicity: >100 ng/mL (>250 nmol/L) Start: 09-29-2024 Urinalysis OBDULIO TAB CARRASCO Comment on above: Result Comment: URIN ALYSIS Performed By: #### 2 [id number] #### [facility],[address] [place] [address] Start: 08-27-2024 Dual energy X-ray absorptiometry Obdulio Ungerer PHARMACY AFFAIRS ASSISTANT-C Work Phone: Start: 08-08-2024 Hepatitis C antibody measurement Obdulio Teranr PHARMACY AFFAIRS ASSISTANT-C Work Phone: Comment on above: Reactive: Presumptiv e evidence of antibodies to HCV. Follow CDC recommendations for supplemental testing.Non-Reactive: Antibodies to HCV were not detected; does not exclude the possibility of exposure to HCVReactive Results are presumptive evidence of antibodies to HCV. Follow CDC recommendations for supplemental testing.Order confirmation testing: HCV Quant by PCR testing - HCVPCR #[id number] Non Reactive: < 0.8 Equivocal: >/= 0.8 to < 1.0 Reactive: >/= 1.0The CDC requires that a reactive/equivocal HCV antibody result be sent out for confirmation. HCV Quant by PCR testing. Start: 08-08-2024 Vitamin D, 25-hydrox y measurement Obdulio Arnolderer PHARMACY AFFAIRS ASSISTANT-C Work Phone: Comment on above: Vitamin D StatusDefi ciency: <20 ng/mL (50nmol/L)Insufficiency: 20-30 ng/mL (50-75 nmol/L)Sufficiency: 30-100 ng/mL (75-250 nmol/L)Toxicity: >100 ng/mL (>250 nmol/L) Start: 07-19-2024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 Blackwood MD Attending Provider Active Start: August 08, 2024 End: August 08, 2024 Dr. Sachin Blackwood MD Referring Provider Active Start: August 08, 2024 End: August 08, 2024 Team Status: Inactive Member Role Status Dates Dr. Sachin Blackwood MD Primary Care Provider Active Start: August 27, 2024 End: August 27, 2024 Dr. Sachin Blackwood MD Attending Provider Active Start: August 27, 2024 End: August 27, 2024 Dr. Sachin Blackwood MD Referring Provider Active Start: August 27, 2024 End: August 27, 2024 Team Status: Active Member Role/Relationship Status Dates Dr. Sachin Blackwood MD Primary Care Provider Active Team Status: Inactive Member Role/Relationship Status Dates KATHLEEN Singh Primary Care Provider Active Start: August 08, 2024 End: August 08, 2024 Dr. Sachin Blackwood MD Attending Provider Active Start: August 08, 2024 End: August 08, 2024 Dr. Sachin Blackwood MD Referring Provider Active Start: August 08, 2024 End: August 08, 2024 Team Status: Inactive Member Role/Relationship Status Dates Dr. Sachin Blackwood MD Primary Care Provider Active Start: August 27, 2024 End: August 27, 2024 Dr. Sachin Blackwood MD Attending Provider Active Start: August 27, 2024 End: August 27, 2024 Dr. Sachin Blackwood MD Referring Provider Active Start: August 27, 2024 End: August 27, 2024 Team Status: Inactive Member Role/Relationship Status Dates Dr. Sachin Blackwood MD Primary Care Provider Active Start: November 11, 2024 End: November 11, 2024 Dr. Sachin Blackwood MD Attending Provider Active Start: November 11, 2024 End: November 11, 2024 Dr. Sachin Blackwood MD Referring Provider Active Start: November 11, 2024 End: November 11, 2024 Goals (unrecognized section and content) Goals may be documented in a n alternate sectionGoals may be documented in an alternate sectionGoals may be documented in an alternate section INFORMATION SOURCE (unrecogn ized section and content) DATE CREATED AUTHOR 10/06/2024 [facility] DATE CREATED AUTHOR AUTHOR'S ORGANIZ ATION 11/06/2024 [facility] DATE CREATED AUTHOR AUTHOR'S ORGANIZ ATION 11/18/2024 [facility] FOR RECORDS PERTAINING TO PATIENTS WHO ARE OR HAVE BEEN ENROLLED IN A CHEMICAL DEPENDENCY/SUBSTANCEABUSE PROGRAM, SOME INFORMATION MAY BE OMITTED. This clinical summary was aggregated from multiple sources. Caution should be exercised in using it in the provision of clinical care. This summary normalizes information from multiple sources, and as a consequence, information in this document may materially change the coding, format and clinical context of patient data. In addition, data may be omitted in some cases. CLINICAL DECISIONS SHOULD BE BASED ON THE PRIMARY CLINICAL RECORDS. [employer] provides no warranty or guarantee of the accuracy or completeness of information in this document.
== END | disposition home or self-care (01) ==
PROVIDERS: PCP Family Medicine Geriatric Medicine; Referring Provider Family Medicine Geriatric Medicine; Visit Provider Family Medicine Geriatric Medicine
DX: Z12.39 Encounter for other screening for malignant neoplasm of breast (principal); Z78.0 Asymptomatic menopausal state; F17.210 Nicotine dependence, cigarettes, uncomplicated
CPT/HCPCS: 71271

== ENCOUNTER → 2025-02-04 | Outpatient (CLI) | payer MEDICARE, MEDICAID, SELFPAY ==
[2025-02-04 12:46] LABS: Hematocrit 40.7 % (37-47); Hemoglobin 13.6 g/dL (12.0-15.0); Immature Granulocytes Count 0.020 X10^3/uL (0.0-0.0); Mean Corp Hgb Conc 33.4 g/dL (32-36); Mean Corpuscular Volume 91.9 fL (81-99); Mean Platelet Vol. 9.6 fl (6.2-12.0); NRBC Flagged by Analyzer 0 % (0-5); Platelet Count 445 K/mm3 (150-450); RBC Distribution Width CV 13.3 % (11.6-14.6); RBC Distribution Width SD 45.1 fl (35.1-43.9); Red Blood Count 4.43 M/mm3 (4.2-5.4); White Blood Count 9.6 K/mm3 (4.4-11.0)
--- OUTSIDE RECORDS SUMMARY | 2025-02-04 12:48 | XMS RPT_ITS | CCD ---
Author Organization [facility] Care Team Providers Care Loading Manager Name Role Phone Obdulio Cm N Unavailable CmObdulio kohler N Unavailable SoilaFernandoObdulio N Unavailable MD ABDOUL JEROME Referring Provider Unavailabl e MD ABDOUL JEROME Other Provider Unavailable Ungwangr, NP. Brooks Primary Care Provider Dr. Abhilash Handley Attending Provider Gracie COSMETOLOGY INSTRUCTORObdulio Menendez Primary Care Provider Jaison TYLER, Dr. Sachin Hook Attending Provider Jaison TYLER, Dr. Sachin Hook Referring Provider Jaison TYLER, Dr. Sachin Hook Primary Care Provider Jaison, Sachin Chi Primary Care Unavailable Jasion, Sachin Chi Attending Unavailable Jaison, Sachin Chi Referring Unavailable Jaison, Sachin Chi Referring Unavailable Obdulio Bowman Primary Care Unavailable Jaison, Sachin Chi Attending Unavailable Jaison, Sachin Chi Primary Care Unavailable Edgar Blood Attending Unavailable Jaison, Sachin Chi Referring Unavailable Jaison, Sachin Chi Primary Care Unavailable Jaison, Sachin Chi Attending Unavailable Jaison, Sachin Chi Primary Care Unavailable Jaison, Sachin Chi Attending Unavailable Jaison, Sachin Chi Referring Unavailable OBDULIO BOWMAN COSMETOLOGY INSTRUCTOR Consulting Unavailable HARVEY CHAPA Attending Unavailable HARVEY CHAPA Admitting Unavailable HARVEY CHAPA Primary Care Unavailable PROVIDER, UNKNOWN Consulting Unavailable HARVEY CHAPA Attending Unavailable HARVEY CHAPA Admitting Unavailable HARVEY CHAPA Primary Care Unavailable EDD RINALDI MD Consulting Unavailable PROVIDER, UNKNOWN Consulting Unavailable PROVIDER, UNKNOWN Consulting Unavailable PROVIDER, UNKNOWN Consulting Unavailable OBDULIO BOWMAN NP Consulting Unavailable HARVEY CHAPA Attending Unavailable HARVEY CHAPA Admitting Unavailable HARVEY CHAPA Primary Care Unavailable PROVIDER, UNKNOWN Consulting Unavailable EDD RINALDI MD Primary Care Unavailable EDD RINALDI MD Consulting Unavailable EDD RINALDI MD Admitting Unavailable EDD RINALDI MD Attending Unavailable PROVIDER, UNKNOWN Consulting Unavailable PROVIDER, UNKNOWN Consulting Unavailable PROVIDER, UNKNOWN Consulting Unavailable HARVEY CHAPA Admitting Unavailable HARVEY CHAPA Primary Care Unavailable HARVEY CHAPA Attending Unavailable HARVEY CHAPA Attending Unavailable REBECCA, HARVEY Admitting Unavailable HARVEY CHAPA Primary Care Unavailable OBDULIO BOWMAN NP Consulting Unavailable PROVIDER, UNKNOWN Consulting Unavailable Allergies Allergy Classification Reported Allergen(s) Allergy Type Date of Onset Reaction(s) Facility (2 sources) ondansetron Drug Allergy [facility] Work Phone: (1 source) Ondansetron Drug Allergy [facility] Repository Medications Completed/Discontinued Medications Medication Drug Class(es) Dates Sig (Normalized) Sig (Original) acetaminophen 325 mg / HYDROcodone bitartrate 7.5 mg oral tablet (2 sources) Opioid Agonist Start: 02-28-2017 NORCO 7.5-325 MG TABS HYDROCODONE-ACETA MINOPHEN [id number] Lelia Hernandez Lr ALPRAZolam 1 mg oral tablet (2 sources) Benzodiazepine Start: 02-28-2017 XANAX 1 MG TABS ALPRAZOLAM [id number] Lelia Lr amLODIPine 5 mg oral tablet (2 sources) Dihydropyridine Calcium Channel Danielito Start: 02-28-2017 AMLODIPINE BESYLATE 5 MG TABS AMLODIPINE BESYLATE [id number] Lelia M Adeline atorvastatin 20 mg oral tablet (2 sources) HMG-CoA Reductase Inhibitor Start: 02-28-2017 ATORVASTATIN CALCIUM 20 MG TABS ATORVASTATIN CALCIUM [id number] Lelia M Lr cloNIDine hydrochloride 0.1 mg oral tablet (2 sources) Central alpha-2 Adrenergic Agonist Start: 02-28-2017 CLONIDINE HCL 0.1 MG TABS CLONIDINE HCL [id number] Lelia M Lr diclofenac sodium 25 mg delayed release oral tablet (2 sources) Nonsteroidal Anti-inflammatory Drug Start: 02-28-2017 DICLOFENAC SODIUM 25 MG TBEC DICLOFENAC SODIUM [id number] Lelia Lr DULoxetine 20 mg delayed release oral capsule (2 sources) Serotonin and Norepinephrine Reuptake Inhibitor Start: 02-28-2017 DULOXETINE HCL 20 MG [facility] DULOXETINE HCL [id number] Lelia Lr gabapentin 600 mg oral tablet (2 sources) Anti-epileptic Agent Start: 02-28-2017 NEURONTIN 600 MG TABS GABAPENTIN [id number] Lelia Lr hydrOXYzine hydrochloride 25 mg oral tablet (2 sources) Antihistamine Start: 02-28-2017 HYDROXYZINE HCL 25 MG TABS HYDROXYZINE HCL [id number] Lelia Lr meloxicam 7.5 mg oral tablet (2 sources) Nonsteroidal Anti-inflammatory Drug Start: 02-28-2017 MOBIC 7.5 MG TABS MELOXICAM [id number] Lelia Lr Drug Treatment Unknown - unknown (1 source) No information available. omeprazole 20 mg delayed release oral tablet (2 sources) Proton Pump Inhibitor Start: 02-28-2017 OMEPRAZOLE 20 MG [facility] OMEPRAZOLE [id number] Lelia Lr tiZANidine 2 mg oral tablet (2 sources) Central alpha-2 Adrenergic Agonist Start: 02-28-2017 TIZANIDINE HCL 2 MG TABS TIZANIDINE HCL [id number] Lelia Lr vitamin b6 100 mg oral tablet (2 sources) Start: 02-28-2017 PYRIDOXINE HCL 100 MG TABS PYRIDOXINE HCL [id number] Lelia Lr Problems Active Problems Problem Classification [...] conditions (not mental disorders or infectious disease) (3 sources) Encounter for other screening for malignant neoplasm of breast; Translations: [Encounter for screening mammogram for malignant neoplasm of breast] Onset: 08-14-2024 Episodic Spondylosis; intervertebral disc disorders; other back problems (8 sources) Spondylosis without myelopathy or radiculopathy, lumbosacral region; Translations: [Spondylosis without myelopathy or radiculopathy, lumbar region] Onset: 08-07-2024 Chronic Substance-related disorders (2 sources) Nicotine dependence, unspecified, uncomplicated; Translations: [Nicotine [...] Test Name Value Interpretation Reference Range Facility ALBUMIN PLASMAon 01-30-2025 Albumin [Mass/Vol] 3.7 g/dL Normal 3.4 - 5.0 [facility] Comment on above: Performed By: #### 2 32070 #### [facility],[address] [place] [address] BMP with eGFRon 01-30-2025 AGE 64 years Normal [facility] Comment on above: Performed By: #### 2 64331 #### [facility],[address] [place] [address] Anion gap [Moles/Vol] 12 mmol/L Normal 10 - 20 [facility] Comment on above: Performed By: #### 2 47562 #### [facility],[address] [place] [address]89 BMP with eGFR Normal [facility] Comment on above: Result Comment: BASI C METABOLIC PANEL Performed By: #### 2 37366 #### [facility],[address] [place] [address]30 Calcium [Mass/Vol] 9.2 mg/dL Normal 8.5 - 10.1 [facility] Comment on above: Performed By: #### 2 90985 #### [facility],[address] [place] [address] 06875 Chloride [Moles/Vol] 100 mmol/L Normal 98 - 107 [facility] Comment on above: Performed By: #### 2 95888 #### [facility],[address] [place] [address]646 CO2 [Moles/Vol] 28.6 mmol/L Normal 21.0 - 32.0 [facility] Comment on above: Performed By: #### 2 16334 #### [facility],[address] [place] [address] 11122 Creatinine [Mass/Vol] 0.50 mg/dL Low 0.55 - 1.02 [facility] Comment on above: Performed By: #### 2 27851 #### [facility],[address] [place] [address] 38193 GFR/1.73 sq M.predicted among non-blacks MDRD (S/P/Bld) [Vol rate/Area] mL/min/{1.73_m2} Normal 60 - 999 [facility] Comment on above: Performed By: #### 2 46481 #### [facility],[address] [place] [address] 47706 Result Comment: ACCO RDING TO THE NATIONAL KIDNEY DISEASE EDUCATION PROGRAM(NKDE), A NORMAL eGFR IS A VALUE GREATER THAN OR EQUAL TO 60 ML/MIN/1.73 SQ METERS. CHRONIC KIDNEY DISEASE: <60mL/MIN/1.73 SQ METERS KIDNEY FAILURE: <15mL/MIN/1.73 SQ METERS THIS TEST SHOULD ONLY BE USED FOR PATIENTS 18 YEARS OF AGE AND OLDER. Glucose [Mass/Vol] 107 mg/dL High 74 - 106 [facility] Comment on above: Performed By: #### 2 07541 #### [facility],[address] [place] [address] Potassium [Moles/Vol] 3.7 mmol/L Normal 3.5 - 5.1 [facility] Comment on above: Performed By: #### 2 41225 #### [facility],[address] [place] [address] Sodium [Moles/Vol] 137 mmol/L Normal 136 - 145 [facility] Comment on above: Performed By: #### 2 34443 #### [place] [address] Urea nitrogen [Mass/Vol] 7 mg/dL Normal 7 - 18 [facility] Comment on above: Performed By: #### 2 69414 #### [facility],[address] [place] [address]648 CBC + DIFFon 01-30-2025 Baso # 0.03 x10EE3/UL Normal 0.00 - 0.10 [facility] Comment on above: Performed By: #### 2 98021 #### [facility],[address] [place] [address]18 Basophils/100 WBC (Bld) 0.3 % Normal 0.0 - 2.0 [facility] Comment on above: Performed By: #### 2 57381 #### [address] [address] CBC + DIFF Normal [facility] Comment on above: Result Comment: CBC- COMPLETE BLOOD COUNT Performed By: #### 2 94016 #### [facility],[address] [place] [address] 85588 EO # 0.30 x10EE3/UL Normal 0.00 - 0.50 [facility] Comment on above: Performed By: #### 2 64996 #### [facility],[address] [place] [address]8219 Eosinophils/100 WBC (Bld) 3.1 % Normal 0.0 - 7.0 [facility] Comment on above: Performed By: #### 2 49698 #### [facility],[address] [place] [address] Erythrocyte distribution width (RBC) [Ratio] 12.9 % Normal 12.0 - 15.6 [facility] Comment on above: Performed By: #### 2 29392 #### [facility],[address] [place] [address] Hematocrit (Bld) [Volume fraction] 41.7 % Normal 34.0 - 46.0 [facility] Comment on above: Performed By: #### 2 03048 #### [facility],[address] [place], [place] [address] Hemoglobin (Bld) [Mass/Vol] 13.9 g/dL Normal 12.0 - 16.0 [facility] Comment on above: Performed By: #### 2 21344 #### [facility],[address] [place] [address] 24604 Lymph # 2.70 x10EE3/UL Normal 0.80 - 2.80 [facility] Comment on above: Performed By: #### 2 01993 #### [facility],[address] [place] [address] 23368 Lymphocytes/100 WBC (Bld) 27.8 % Normal 20.0 - 45.0 [facility] Comment on above: Performed By: #### 2 37328 #### [facility],[address] [place] [address] 09125 MANUAL DIFF N/A Normal [facility] Comment on above: Performed By: #### 2 46335 #### [facility],[address] [place] [address] MCH (RBC) [Entitic mass] 30 pg Normal 27 - 33 [facility] Comment on above: Performed By: #### 2 30571 #### [facility],[address] [place] [address] MCHC 33 X10 3 Normal 32 - 36 [facility] Comment on above: Performed By: #### 2 55866 #### [facility],[address] [place] [address] MCV (RBC) [Entitic vol] 91 fL Normal 80 - 99 [facility] Comment on above: Performed By: #### 2 71809 #### [facility],[address] [place] [address] Gregory # 0.77 x10EE3/UL Normal 0.20 - 1.00 [facility] Comment on above: Performed By: #### 2 61133 #### [facility],[address] [place] [address] MONOS % 8.0 % Normal 0.0 - 10.0 [facility] Comment on above: Performed By: #### 2 03089 #### [facility],[address] [place] [address] Morphology Rogelio (Bld) [Interp] N/A Normal [facility] Comment on above: Performed By: #### 2 68372 #### [facility],[address] [place] [address] Neut # 5.90 x10EE3/UL Normal 1.50 - 7.10 [facility] Comment on above: Performed By: #### 2 92569 #### [place] [address] Neutrophils/100 WBC (Bld) 60.9 % Normal 46.0 - 76.0 [facility] Comment on above: Performed By: #### 2 50519 #### [facility],[address] [place] [address] 82088 PLATELET 481 x10EE3/UL High 150 - 450 [facility] Comment on above: Performed By: #### 2 27540 #### [facility],[address] [place] [address] 81923 Platelet mean volume (Bld) [Entitic vol] 7.1 fL Normal 6.6 - 10.5 [facility] Comment on above: Result Comment: AUTO MATED DIFFERENTIAL Performed By: #### 2 84996 #### [facility],[address] [place] [address] 84072 RBC 4.58 x 10EE6/UL Normal 4.10 - 5.30 [facility] Comment on above: Performed By: #### 2 01589 #### [facility],[address] [place] [address] 77788 WBC 9.7 x 10EE3/UL Normal 4.5 - 10.8 [facility] Comment on above: Performed By: #### 2 33265 #### [facility],[address] [place] [address]67 CHEST 2 VIEWSon 01-30-2025 CHEST [address] ? [place] [address] ? Patient: JEREMY TURNER Phone#: : 1960 Age: 64 Gender: F Pt. Type: Out Account: [id number] Location: [facility] Ordering: DR. EDGAR BLOOD Exam Date: 01/30/2025/9:47 Family Phys: DEIRDRE BENZ Charge Code: [id number] Physician: Jay Order #: [id number] Dose#: PROCEDURE: X-RAY CHEST 2 VIEWS COMPARISON: [facility], XR, CHEST 1 VIEW, 09/30/2024, 9:19. INDICATIONS: Pre-op. FINDINGS: LUNGS: Hyperaeration of the lung [place]. Chronic interstitial changes. No significant pulmonary parenchymal abnormalities. VASCULATURE: Normal. Unremarkable pulmonary vasculature. CARDIAC: Normal. No cardiac silhouette abnormality or cardiomegaly. MEDIASTINUM: Aortic arch calcifications PLEURA: Normal. No effusion or pleural thickening. BONES: Normal. No fracture or visible bony lesion. OTHER: Negative. CONCLUSION: 1. Hyperaeration of the lung [place], correlate for COPD Dictated by: Emili Quintero MD on 01/30/2025 at 11:06 Approved by: Emili Quintero MD on 01/30/2025 at 11:09 [address] [facility] CT SHOULDER W/O RTon 025 CT SHOULDER W/O RT [address] ? [place] [address] ? Patient: JEREMY TURNER Phone#: : 1960 Age: 64 Gender: F Pt. Type: Out Account: [id number] Location: [facility] Ordering: DR. EDGAR BLOOD Exam Date: 01/30/2025/9:24 Family Phys: DEIRDRE BENZ Charge Code: [id number] Physician: Jay Order #: [id number] Dose#: 54.20 mGy PROCEDURE: CT SHOULDER RT WITHOUT CONTRAST COMPARISON: [facility], MR, SHOULDER RT W W/O CONT, 12/27/2024, 14:31. [facility], XR, SHOULDER RT, 11/20/2024, 11:46. 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 All CT scans at this facility use dose modulation, iterative reconstruction, and/or weight based dosing when appropriate to reduce radiation dose to as low as reasonably achievable. IV CONTRAST: No IV contrast used,0 ml TOTAL DOSE: 54.20 54.20 CTDIvol(mGy) FINDINGS: BONES: There is flattening of the humeral head. Subcortical crescent consistent with a vascular necrosis is present. Degenerative changes present at the glenoid. There is superior subluxation of the humeral head. Mild degenerative changes present at the Glenohumeral joint. Degenerative changes present at the acromioclavicular joint. SOFT TISSUES: Negative. No visible soft tissue swelling. EFFUSION: None visible. OTHER: Negative. CONCLUSION: 1. 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 2. The humeral head is flattened. The humeral head is subluxed superiorly. Subcortical crescent changes are present. Dictated by: Monique Christina MD on 01/30/2025 at 15:16 Approved by: Monique Christina MD on 01/30/2025 at 15:49 Normal [facility] MR SHOULDER W/WO RTon 2024 MR SHOULDER W/WO RT [place] [address] Patient: JEREMY TURNER Phone#: : 1960 Age: 64 Gender: F Pt. Type: Out Account: [id number] Location: [facility] Ordering: ELSA GIORDANO Exam Date: 12/27/2024/14:31 Family Phys: EDD RINALDI Charge Code: [id number] Physician: Jay Order #: [id number] Dose#: PROCEDURE: MRI SHOULDER RT WITH AND WITHOUT CONTRAST COMPARISON: None. INDICATIONS: PAIN, STRAIN TECHNIQUE: A variety of imaging planes and parameters were utilized for visualization of suspected pathology. Images were performed without and with intravenous gadolinium. FINDINGS: Study is somewhat limited by patient motion. ROTATOR CUFF REGION CUFF TENDONS: Supraspinatus partial tendon tear at the insertion, series 9, image 15. Tear is articular sided and anterior. Infraspinatus tendon has an interstitial tear, series 7, image 19. Subscapularis tendon tendon is thickened and heterogeneous in signal consistent with tendinosis. CUFF MUSCLES: There is edema in the subscapularis and infraspinatus muscles. DELTOID: Normal. No significant atrophy or tear. LONG BICEPS TENDON: Normal. No abnormal signal, attrition, or tear. LABRUM/BICEPS ANCHOR SUPERIOR: Superior labral tear, series 9, image 18. Anterior labral tear, series 11, image 20. ANTERIOR/INFERIOR: Normal. No visible tear or attrition. POSTERIOR: Posterior labrum is not visualized, indicating tear. CAPSULE ANTERIOR/INFERIOR: Limited visualization of the little glenohumeral ligament secondary to patient motion. Ligament appears to be torn at the glenoid. POSTERIOR: Normal. No visible capsular laxity or thickening. AC JOINT REGION AC JOINT: There is superior spurring of the acromion. There is no edema at the acromioclavicular joint. AC LIGAMENTS: Normal acromioclavicular ligament. CC LIGAMENTS: Normal coracoclavicular ligaments. ACROMION: Normal horizontal (Type I) configuration. SUBACROMIAL BURSA: There is fluid in the subacromial subdeltoid bursa. HYALINE CARTILAGE: There is cartilage irregularity and areas of full-thickness cartilage loss on the glenoid. Continued Report - Page 2 of 2 Patient: JEREMY TURNER Phone#: : 1960 Age: 64 Gender: F Pt. Type: Out Account: [id number] Location: [facility] Ordering: ELSA GIORDANO Exam Date: 12/27/2024/14:31 Family Phys: EDD RINALDI Charge Code: [id number] Physician: Jay Order #: [id number] Dose#: OTHER BONES: There is impaction fracture of the humeral head, series 15, image 20. There is edema in the humeral head. OTHER OBSERVATIONS: There is a loose body adjacent to the posterior glenoid, series 15, image 17, the loose body measures 0.3 x 0.4 cm. There is debris possibly loose bodies in the inferior axillary pouch, series 9, image 13. There is edema surrounding the inferior axillary pouch. There is also thickening of the inferior axillary pouch. There is a fluid collection anterior and superficial to the subscapularis muscle, series 11 image 15. There is hypodense collection adjacent to the fluid collection, series 9, image 23 and series 11, image 20. This collection of hypo intense substance measures 1.1 by 1.3 x 1.2 cm, possibly representing loose bodies. Deep to the subscapularis muscle there is loose body measuring 0.8 x 0.4 cm. Postcontrast images demonstrates diffuse synovial enhancement. There is enhancement surrounding the fluid collection superficial to the subscapularis tendon. There is mild enhancement within the humeral head and inferior and posterior aspect of the glenoid. CONCLUSION: 1. Diffuse synovial enhancement consistent with synovitis. 2. Humeral head impaction fracture 3. Multiple loose bodies 4. Anterior, posterior and superior labral tear 5. Supraspinatus partial tear 6. Infraspinatus interstitial tear 7. Subscapularis tendinosis 8. Edema with corresponding enhancement in the humerus and glenoid without appreciable destruction. The appearance favors post traumatic and/or reactive change. Dictated by: Emili Quintero MD on 12/30/2024 at 9:44 Approved by: Emili Quintero MD on 12/30/2024 at 10:03 Normal [facility] C-REACTIVE PROTEINon 025 CRP 0.29 mg/dl Normal 0.00 - 0.90 [facility] Comment on above: Performed By: #### 2 25556 #### [place] [address] CBC + DIFFon 12-18-2024 Baso # 0.02 x10EE3/UL Normal 0.00 - 0.10 [facility] Comment on above: Performed By: #### 2 50538 #### [place] [address] Basophils/100 WBC (Bld) 0.3 % Normal 0.0 - 2.0 [facility] Comment on above: Performed By: #### 2 14228 #### [place] [address] CBC + DIFF Normal [facility] Comment on above: Result Comment: CBC- COMPLETE BLOOD COUNT Performed By: #### 2 38116 #### [place] [address] EO # 0.29 x10EE3/UL Normal 0.00 - 0.50 [facility] Comment on above: Performed By: #### 2 37203 #### [place] [address] Eosinophils/100 WBC (Bld) 4.1 % Normal 0.0 - 7.0 [facility] Comment on above: Performed By: #### 2 19622 #### [place] [address] Erythrocyte distribution width (RBC) [Ratio] 13.4 % Normal 12.0 - 15.6 [facility] Comment on above: Performed By: #### 2 42730 #### [facility],[address] [place] [address] Hematocrit (Bld) [Volume fraction] 38.1 % Normal 34.0 - 46.0 [facility] Comment on above: Performed By: #### 2 64731 #### [facility],[address] [place] [address] Hemoglobin (Bld) [Mass/Vol] 12.8 g/dL Normal 12.0 - 16.0 [facility] Comment on above: Performed By: #### 2 65059 #### [facility],[address] [place] [address] Lymph # 2.05 x10EE3/UL Normal 0.80 - 2.80 [facility] Comment on above: Performed By: #### 2 39214 #### [facility],[address] [place] [address] Lymphocytes/100 WBC (Bld) 28.5 % Normal 20.0 - 45.0 [facility] Comment on above: Performed By: #### 2 66956 #### [facility],[address] [place] [address] MANUAL DIFF N/A Normal [facility] Comment on above: Performed By: #### 2 50544 #### [facility],[address] [place] [address] MCH (RBC) [Entitic mass] 31 pg Normal 27 - 33 [facility] Comment on above: Performed By: #### 2 44527 #### [facility],[address] [place] [address] MCHC 34 X10 3 Normal 32 - 36 [facility] Comment on above: Performed By: #### 2 43059 #### [facility],[address] [place], [place] [address] MCV (RBC) [Entitic vol] 93 fL Normal 80 - 99 [facility] Comment on above: Performed By: #### 2 38112 #### [facility],[address] [place] [address] Gregory # 0.79 x10EE3/UL Normal 0.20 - 1.00 [facility] Comment on above: Performed By: #### 2 02511 #### [facility],[address] [place] [address] MONOS % 11.0 % High 0.0 - 10.0 [facility] Comment on above: Performed By: #### 2 07115 #### [facility],[address] [place] [address] Morphology Rogelio (Bld) [Interp] N/A Normal [facility] Comment on above: Performed By: #### 2 33417 #### [facility],[address] [place] [address] Neut # 4.04 x10EE3/UL Normal 1.50 - 7.10 [facility] Comment on above: Performed By: #### 2 46330 #### [facility],[address] [place] [address] Neutrophils/100 WBC (Bld) 56.1 % Normal 46.0 - 76.0 [facility] Comment on above: Performed By: #### 2 56119 #### [facility],[address] [place] [address] PLATELET 427 x10EE3/UL Normal 150 - 450 [facility] Comment on above: Performed By: #### 2 18660 #### [facility],[address] [place] [address] 26685 Platelet mean volume (Bld) [Entitic vol] 7.5 fL Normal 6.6 - 10.5 [facility] Comment on above: Result Comment: AUTO MATED DIFFERENTIAL Performed By: #### 2 69378 #### [facility],[address] [place] [address] 43651 RBC 4.09 x 10EE6/UL Low 4.10 - 5.30 [facility] Comment on above: Performed By: #### 2 41552 #### [facility],[address] [place] [address] 11708 WBC 7.2 x 10EE3/UL Normal 4.5 - 10.8 [facility] Comment on above: Performed By: #### 2 40472 #### [facility],[address] [place] [address]25 CREATININEon 12-18-2024 AGE 64 years Normal [facility] Comment on above: Performed By: #### 2 99270 #### [facility],[address] [place] [address] 23482 Creatinine [Mass/Vol] 0.51 mg/dL Low 0.55 - 1.02 [facility] Comment on above: Performed By: #### 2 00874 #### [facility] [facility],[address] [place] [address] GFR/1.73 sq M.predicted among non-blacks MDRD (S/P/Bld) [Vol rate/Area] mL/min/{1.73_m2} Normal 60 - 999 [facility] Comment on above: Performed By: #### 2 [id number] #### [facility],[address] [place] [address] SEDRATEon 12-18-2024 SEDRATE 20 mm/hr Normal 0 - 30 [facility] Comment on above: Performed By: #### 2 [id number] #### [facility],[address] [place] [address] OPERATIVE PROCEDURESon 11-21 OPERATIVE PROCEDURES [facility] OPERATIVE REPORT NAME ACCOUNT SEX AGE ADMIT DISCHARGE PT MED. RECORD# NUMBER DATE DATE TYPE JEREMY TURNER [id number] F [id number] 11/20/24 11/20/24 2 [id number] ROOM: DATE OF : 1960 DICTATING PHYSICIAN: Harvey Chapa DATE OF PROCEDURE: November 20, 2024 SURGEON: Harvey Chapa DO SUPERVISOR ELECTRONIC TESTING: None. ANESTHESIA: Local. PRE-PROCEDURE DIAGNOSES: (1) Right rotator cuff tear/M75.101. (2) Right shoulder/joint pain/M25.511. POST-PROCEDURE DIAGNOSES: (1) Right rotator cuff tear/M75.101. (2) Right shoulder/joint pain/M25.511. PROCEDURE: Diagnostic/therapeuti c right shoulder injection under palpatory guidance. COMPLICATIONS: None. IV FLUIDS: None. ESTIMATED BLOOD LOSS: None. INDICATIONS: This is a 64-year-old female who has severe right shoulder pain refractory to medications. The patient is unable to abduct her arm more than 30 degrees without exquisite pain. I was able to motion the arm up slightly higher, but the pain was significant and her weakness was profound. The patient has had no real work-up, though she did have a fall after her hip replacement, though she states she had no other trauma. Certainly this could be the cause, but by exam she has a rotator cuff tear. The patient agrees to the risks and benefits of this injection. DESCRIPTION OF PROCEDURE: This 64-year-old female was taken to the pain block room and was placed in the sitting position. Under sterile prep of the posterior aspect of the right shoulder with Betadine and alcohol, a 25-gauge needle was placed into the right shoulder/joint space. After negative aspiration, Kenalog 40 mg with Marcaine 0.25% preservative-free 4 mL was then injected. The needle was then removed intact. Page 1 of 2 JEREMY TURNER Operative Report JEREMY TURNER : 1960 Dictated By: Harvey Chapa DO 11/20/24 11:40 JOB #: [id number] Transcribed By: scotty 11/20/24 16:49 Electronically signed by: E-SIGN: HARVEY CHAPA 11/21/24 10:20 Page 2 of 2 JEREMY TURNER Operative Report Normal [facility] SHOULDER COMPLETE RTon 11-20 SHOULDER COMPLETE RT [address] [address] Patient: JEREMY TURNER. Phone#: : 1960 Age: 64 Gender: F Pt. Type: Out Account: [id number] Location: 010 Ordering: HARVEY Coyle CHAPA Exam Date: 11/20/2024/11:46 Family Phys: EDD RINALDI Charge Code: 929895 Physician: Jay Order #: [id number] Dose#: PROCEDURE: X-RAY SHOULDER COMPLETE RT MIN 2 VIEWS COMPARISON: [facility], CT, CHEST PE W CON, 06/08/2016, 17:40. [facility], XR, CHEST 1 VIEW, 09/30/2024, 9:19. INDICATIONS: Right shoulder pain. FINDINGS: BONES: Vertical lucency is present at the humeral head of questionable etiology. Possibility of subacute fracture is raised. Similar finding is not seen on previous chest radiograph of September 30, 2024. SOFT TISSUES: Irregular 2 x 8 millimeter calcifications present inferior to the glenohumeral joint. Again similar finding is not noted on prior chest radiograph. Possibility of avulsed fragment versus calcific bursitis is raised. EFFUSION: None visible. OTHER: Negative. CONCLUSION: 1. Vertical lucency of the humeral head of questionable etiology and not noted on prior chest radiograph. Subacute fracture cannot be excluded. 2. Calcification inferior to the glenohumeral joint may represent cortical avulsion versus calcific bursitis. Dictated by: Monique Christina MD on 11/20/2024 at 12:05 Approved by: Monique Christina MD on 11/20/2024 at 12:15 Normal [facility] Low Dose CT Lung Screeningon 11-18-[address] Lung Screening [facility] Imaging Services [address] [place] [address] Lung Screening MR#: [id number] Acct: [id number] Name: JEREMY TURNER Rep #: [id number] : 1960 F 64 From: Rick tran MD PCP: Dr. Sachin Blackwood MD Status: REG CLI Study: Low Dose CT Lung Screening Date of Exam: 11/18 Exam# [id number] Ordering Dr: Sachin Blackwood MD PROCEDURE: LOW DOSE CT LUNG SCREENING 11/18/2024 REASON FOR EXAM: NICOTINE DEPENDENCE Current smoker. Patient has smoked 2 pack per day for 51 years. COPD. TECHNIQUE: LOW DOSE CT LUNG SCREENING Coronal and Sagittal reconstruction series were provided. One or more dose reduction techniques were used (e.g., Automated exposure control, adjustment of the mA and/or kV according to patient size, use of iterative reconstruction technique). REFERENCE LINK: [address] [facility] RADIATION DOSE SUMMARY: CTDlvol: 2.01 mGy DLP: 68.46 mGycm COMPARISON: None FINDINGS: PULMONARY NODULES: (Only nodules >3mm are reported) Nodules described below are on series 1 unless otherwise specified. Pulmonary Nodules: No suspicious pulmonary nodule is seen. Hardware:None Lymph Nodes:Small benign-appearing mediastinal lymph nodes. Heart and Vasculature:The heart is not enlarged.Calcified atherosclerotic plaques of the aortic arch. Coronary Artery Calcifications: Present Lungs and Airways: Hyperinflation. Mild degree of emphysema. Scarring at the lung apices. Pleura:No pleural effusion. Upper Abdomen:Unremarkable Bones:Degenerative changes of the thoracic spine. CT/Low Dose CT Lung Screening IMPRESSION: Hyperinflation mild emphysematous changes. Scarring at the lung apices. Coronary artery calcification (CAC) is is present Lung-RADS Category: 2 BENIGN (BASED ON IMAGING FEATURES OR INDOLENT BEHAVIOR). RECOMMEND 12-MONTH SCREENING LDCT. Other Significant Findings: None Reading Location: [id number] CC: Dr. Sachin Blackwood MD Cardiology Technician: Signed Normal [facility] Absolute lymphocyte countOrd ered By: Sachin Blackwood on 11-11-2024 Lymphocytes Auto (Unsp spec) [#/Vol] 2.21 10*3/uL 0.83-4.51 [facility] Absolute neutrophil countOrd ered By: Sachin Blackwood on 11-11-2024 Neutrophils (Bld) [#/Vol] 5.4 10*3/uL 2.0-7.7 [facility] Anion gap in Serum or Plasma Ordered By: Sachin Blackwood on 11-11-2024 Anion gap [Moles/Vol] 12 mmol/L 5-15 [facility] Automated lymphocyte count a s percentage of total leukocytesOrdered By: Sachin Blackwood on 11-11-2024 Lymphocytes/100 WBC Auto (Unsp spec) 25.0 % 19- [facility] BUN/creatinine ratioOrdered By: Sachin Blackwood on 11-11-2024 Urea nitrogen/Creatinine [Mass ratio] 15.7 mg/mg 10-20 [facility] Basophil percentageOrdered B y: Sachin Blackwood on 11-11-2024 Basophils/100 WBC (Bld) 0.8 % 0-1 [facility] Bilirubin, totalOrdered By: Sachin Blackwood on 11-11-2024 Bilirubin [Mass/Vol] 0.16 mg/dL 0.00-1.30 [facility] CBC W/Diff, Automatedon 10-16 Absolute Lymph 2.21 X10 3/uL Normal 0.83-4.51 [facility] Comment on above: Performed By: #### L 500.4050, L501.9520, L506.1001, L100.0100 #### [facility] [address] [place], [address] Absolute Neut 5.4 X10 3/uL Normal 2.0-7.7 [facility] Comment on above: Performed By: #### L 500.4050, L501.9520, L506.1001, L100.0100 #### [facility] [address] [place], [address] Basophils/100 WBC (Bld) 0.8 % Normal 0-1 [facility] Comment on above: Performed By: #### L 500.4050, L501.9520, L506.1001, L100.0100 #### [facility] [address] [place], [address] Eosinophils/100 WBC (Bld) 3.2 % Normal 0-5 [facility] Comment on above: Performed By: #### L 500.4050, L501.9520, L506.1001, L100.0100 #### [facility] [address] [place], [address] Erythrocyte distribution width (RBC) [Ratio] 13.7 % Normal 11.6-14.6 [facility] Comment on above: Performed By: #### L 500.4050, L501.9520, L506.1001, L100.0100 #### [facility] [address] [place], [address] Hematocrit (Bld) [Volume fraction] 37.7 % Normal 37-47 [facility] Comment on above: Performed By: #### L 500.4050, L501.9520, L506.1001, L100.0100 #### [facility] [address] [place], [address] Hemoglobin (Bld) [Mass/Vol] 12.1 g/dL Normal 12.0-15.0 [facility] Comment on above: Performed By: #### L 500.4050, L501.9520, L506.1001, L100.0100 #### [facility] [address] [place], [address] IG% 0.200 Normal 0.0-0.9 [facility] Comment on above: Result Comment: IG% - Immature Granulocytes (promyelocytes, myelocytes and metamyelocytes) > 1% indicates that a LEFT SHIFT is Present. Performed By: #### L 500.4050, L501.9520, L506.1001, L100.0100 #### [facility] [address] [place], [address] Lymphocytes/100 WBC (Bld) 25.0 % Normal 19-41 [facility] Comment on above: Performed By: #### L 500.4050, L501.9520, L506.1001, L100.0100 #### [facility] [address] [place], [address] MCH (RBC) [Entitic mass] 30.8 pg Normal 27.0-32.0 [facility] Comment on above: Performed By: #### L 500.4050, L501.9520, L506.1001, L100.0100 #### [facility] [address] [place], [address] MCHC (RBC) [Mass/Vol] 32.1 g/dL Normal 32-36 [facility] Comment on above: Performed By: #### L 500.4050, L501.9520, L506.1001, L100.0100 #### [facility] [address] [place], [address] MCV (RBC) [Entitic vol] 95.9 fL Normal 81-99 [facility] Comment on above: Performed By: #### L 500.4050, L501.9520, L506.1001, L100.0100 #### [facility] [address] [place], [address] Monocytes/100 WBC (Bld) 9.4 % Normal 0-10 [facility] Comment on above: Performed By: #### L 500.4050, L501.9520, L506.1001, L100.0100 #### [facility] [address] [place], [address] Neutrophils/100 WBC (Bld) 61.4 % Normal 47-70 [facility] Comment on above: Performed By: #### L 500.4050, L501.9520, L506.1001, L100.0100 #### [facility] [address] [place], [address] Nucleated RBC (Bld) [#/Vol] 0 10*3/uL Normal 0-5 [facility] Comment on above: Performed By: #### L 500.4050, L501.9520, L506.1001, L100.0100 #### [facility] [address] [place], [address] Platelet mean volume (Bld) [Entitic vol] 9.2 fL Normal 6.2-12.0 [facility] Comment on above: Performed By: #### L 500.4050, L501.9520, L506.1001, L100.0100 #### [facility] [address] [place], [address] Platelets (Bld) [#/Vol] 488 10*3/uL High 150-450 [facility] Comment on above: Performed By: #### L 500.4050, L501.9520, L506.1001, L100.0100 #### [facility] [address] [place], [address] RBC (Bld) [#/Vol] 3.93 10*6/uL Low 4.2-5.4 [facility] Comment on above: Performed By: #### L 500.4050, L501.9520, L506.1001, L100.0100 #### [facility] [address] [place], [address] RDW SD 48.7 fl High 35.1-43.9 [facility] Comment on above: Performed By: #### L 500.4050, L501.9520, L506.1001, L100.0100 #### [facility] [address] [place], [address] WBC (Bld) [#/Vol] 8.9 10*3/uL Normal 4.4-11.[address] [facility] Comment on above: Performed By: #### L 500.4050, L501.9520, L506.1001, L100.0100 #### [facility] [address] [place], [address] Carbon dioxide, total [Moles /volume] in Central venous bloodOrdered By: Sachin Blackwood on 11-11-2024 CO2 [Moles/Vol] 23.5 mmol/L 21.0-32.0 [facility] Chloride assayOrdered By: Elijah jami Jaison on 11-11-2024 Chloride [Moles/Vol] 104 mmol/L 98-108 [facility] Comprehensive Metabolic Prof ilon 11-11-2024 Albumin [Mass/Vol] 4.1 g/dL Normal 3.4-4.[address] [facility] Comment on above: Performed By: #### L 500.4050, L501.9520, L506.1001, L100.0100 #### [facility] [address] [place], [address] Albumin/Globulin [Mass ratio] 1.5 {ratio} Normal 0.9-2.4 [facility] Comment on above: Performed By: #### L 500.4050, L501.9520, L506.1001, L100.0100 #### [facility] [address] [place], [address] ALK PHOS 162 U/L High 35-104 [facility] Comment on above: Performed By: #### L 500.4050, L501.9520, L506.1001, L100.0100 #### [facility] [address] [place], [address] ALT [Catalytic activity/Vol] 9 U/L Normal <=34 [facility] Comment on above: Performed By: #### L 500.4050, L501.9520, L506.1001, L100.0100 #### [facility] [address] [place], [address] AST [Catalytic activity/Vol] 17 U/L Normal <=31 [facility] Comment on above: Performed By: #### L 500.4050, L501.9520, L506.1001, L100.0100 #### [facility] [address] [place], [address] Bilirubin [Mass/Vol] 0.16 mg/dL Normal 0.00-1.30 [facility] Comment on above: Performed By: #### L 500.4050, L501.9520, L506.1001, L100.0100 #### [facility] [address] [place], [address] BUN/CRE 15.7 RATIO Normal 10-20 [facility] Comment on above: Performed By: #### L 500.4050, L501.9520, L506.1001, L100.0100 #### [facility] [address] [place], [address] Calcium [Mass/Vol] 9.0 mg/dL Normal 7.6-11.[address] [facility] Comment on above: Performed By: #### L 500.4050, L501.9520, L506.1001, L100.0100 #### [facility] [address] [place], [address] Chloride [Moles/Vol] 104 mmol/L Normal 98-108 [facility] Comment on above: Performed By: #### L 500.4050, L501.9520, L506.1001, L100.0100 #### [facility] [address] [place], [address] CO2 [Moles/Vol] 23.5 mmol/L Normal 21.0-32.0 [facility] Comment on above: Performed By: #### L 500.4050, L501.9520, L506.1001, L100.0100 #### [facility] [address] [place], [address] Creatinine [Mass/Vol] 0.49 mg/dL Low 0.70-1.20 [facility] Comment on above: Performed By: #### L 500.4050, L501.9520, L506.1001, L100.0100 #### [facility] [address] [place], [address] GAP 12 Normal 5-15 [facility] Comment on above: Performed By: #### L 500.4050, L501.9520, L506.1001, L100.0100 #### [facility] [address] [place], [address] GFR/1.73 sq M.predicted among non-blacks MDRD (S/P/Bld) [Vol rate/Area] 104 mL/min/{1.73_m2} Normal >60 [facility] Comment on above: Result Comment: mL/m in/1.73m2 CKD-EPI Creatinine Equation (2020) Performed By: #### L 500.4050, L501.9520, L506.1001, L100.0100 #### [facility] [address] [place], [address] Globulin (S) [Mass/Vol] 2.7 g/dL Normal 2.2-4.2 [facility] Comment on above: Performed By: #### L 500.4050, L501.9520, L506.1001, L100.0100 #### [facility] [address] [place], [address] Glucose [Mass/Vol] 99 mg/dL Normal 70-[address] [facility] Comment on above: Performed By: #### L 500.4050, L501.9520, L506.1001, L100.0100 #### [facility] [address] [place], [address] Potassium [Moles/Vol] 3.7 mmol/L Normal 3.3-5.1 [facility] Comment on above: Performed By: #### L 500.4050, L501.9520, L506.1001, L100.0100 #### [facility] [address] [place], [address] Sodium [Moles/Vol] 139 mmol/L Normal 133-[address] [facility] Comment on above: Performed By: #### L 500.4050, L501.9520, L506.1001, L100.0100 #### [facility] [address] [place], [address] T PROT 6.8 g/dL Normal 5.9-8.4 [facility] Comment on above: Performed By: #### L 500.4050, L501.9520, L506.1001, L100.0100 #### [facility] [address] [place], [address] Urea nitrogen [Mass/Vol] 8 mg/dL Normal 4-19 [facility] Comment on above: Performed By: #### L 500.4050, L501.9520, L506.1001, L100.0100 #### [facility] [address] [place], [address] Eosinophil percentageOrdered By: Sachin Blackwood on 11-11-2024 Eosinophils/100 WBC (Bld) 3.2 % 0-5 [facility] Erythrocyte distribution wid th ratioOrdered By: Sachin Blackwood on 11-11-2024 Erythrocyte distribution width (RBC) [Ratio] 13.7 % 11.6-14.6 [facility] Erythrocyte distribution wid th standard deviationOrdered By: Sachin Blackwood 11-11-2024 Erythrocyte distribution width (RBC) [Ratio] 48.7 fl High 35.1-43.9 [facility] Glomerular filtration rate ( GFR) estimation/1.73 sq m using serum, plasma, or whole bOrdered By: Sachin Blackwood on 11-11-2024 GFR/1.73 sq M.predicted among non-blacks MDRD (S/P/Bld) [Vol rate/Area] 104 mL/min/{1.73_m2} >60 [facility] Comment on above: mL/min/1.73m2 CKD-EP I Creatinine Equation (2020) Hematocrit Auto (Bld) [Volum e fraction]Ordered By: Sachin Blackwood on 11-11-2024 Hematocrit (Bld) [Volume fraction] 37.7 % 37-47 [facility] Hemoglobin measurementOrdere d By: Sachin Blackwood on 11-11-2024 Hemoglobin (Bld) [Mass/Vol] 12.1 g/dL 12.0-15.0 [facility] Immature granulocytes/100 WB C Auto (Bld)Ordered By: Sachin Blackwood on 11-11-2024 Immature granulocytes/100 WBC (Bld) 0.200 % 0.0-0.9 [facility] Comment on above: IG% - Immature Granu locytes (promyelocytes, myelocytes and metamyelocytes) > 1% indicates that a LEFT SHIFT is Present. Laboratory - Chemistry and C hemistry - challengeOrdered By: Sachin Blackwood on 11-11-2024 AST [Catalytic activity/Vol] 17 U/L <32 [facility] MCV (mean corpuscular volume ) determinationOrdered By: Sachin Blackwood on 11-11-2024 MCV (RBC) [Entitic vol] 95.9 fL 81-99 [facility] Mean corpuscular hemoglobin (MCH) determinationOrdered By: Sachin Blackwood 11-11-2024 MCH (RBC) [Entitic mass] 30.8 pg 27.0-32.0 [facility] Mean corpuscular hemoglobin concentration (MCHC) determinationOrdered By: Sachin Blackwood 11-11-2024 MCHC (RBC) [Mass/Vol] 32.1 g/dL 32-36 [facility] Mean platelet volume determi nationOrdered By: Sachin Blackwood 11-11-2024 Platelet mean volume (Bld) [Entitic vol] 9.2 fL 6.2-12.0 [facility] Monocyte percentageOrdered B y: Sachin Blackwood on 11-11-2024 Monocytes/100 WBC (Bld) 9.4 % 0-10 [facility] Neutrophil percentageOrdered By: Sachin Blackwood on 11-11-2024 Neutrophils/100 WBC (Bld) 61.4 % 47-70 [facility] Nucleated red blood cell per centageOrdered By: Sachin Blackwood on 11-11-2024 Nucleated RBC/100 WBC (Bld) [Ratio] 0 % 0-5 [facility] Platelet countOrdered By: Elijah Blackwood on 11-11-2024 Platelets (Bld) [#/Vol] 488 10*3/uL High 150-450 [facility] Potassium measurement (mass/ volume)Ordered By: Sachin Blackwood on 11-11-2024 Potassium (Unsp spec) [Mass/Vol] 3.7 mmol/L 3.3-5.1 [facility] RBC Auto (Bld) [#/Vol]Ordere d By: Sachin Blackwood on 11-11-2024 RBC (Bld) [#/Vol] 3.93 10*6/uL Low 4.2-5.4 [facility] Serum creatinine measurement (mass/volume)Ordered By: Sachin Blackwood on 11-11-2024 Creatinine [Mass/Vol] 0.49 mg/dL Low 0.70-1.20 [facility] Serum globulin measurementOr dered By: Sachin Blackwood 11-11-2024 Globulin (S) [Mass/Vol] 2.7 g/dL 2.2-4.2 [facility] Serum glucose measurement (m ass/volume)Ordered By: Sachin Blackwood 11-11-2024 Glucose [Mass/Vol] 99 mg/dL 70-[address] [facility] Serum or plasma alanine lewis otransferase (ALT) measurementOrdered By: Sachin Blackwood 11-11-2024 ALT [Catalytic activity/Vol] 9 U/L <35 [facility] Serum or plasma albumin phoenix urement (mass/volume)Ordered By: Sachin Blackwood 11-11-2024 Albumin [Mass/Vol] 4.1 g/dL 3.4-4.[address] [facility] Serum or plasma albumin/glob ulin mass ratioOrdered By: Sachin Blackwood 11-11-2024 Albumin/Globulin [Mass ratio] 1.5 {ratio} 0.9-2.4 [facility] Serum or plasma alkaline jose sphatase measurementOrdered By: Sachin Blackwood 11-11-2024 ALP [Catalytic activity/Vol] 162 U/L High 35-104 [facility] Serum or plasma calcium phoenix urement (mass/volume)Ordered By: Sachin Blackwood 11-11-2024 Calcium [Mass/Vol] 9.0 mg/dL 7.6-11.[address] [facility] Serum or plasma urea nitroge n measurement (mass/volume)Ordered By: Sachin Blackwood on 11-11-2024 Urea nitrogen [Mass/Vol] 8 mg/dL 4-19 [facility] Sodium levelOrdered By: Sachin Blackwood on 11-11-2024 Sodium [Moles/Vol] 139 mmol/L 133-[address] [facility] TSH DL <= 0.005 mIU/L QnOrde red By: Sachin Blackwood on 11-11-2024 TSH Qn 1.720 uIU/mL 0.300-4.200 [facility] Thyroid Stim Hormone (TSH)on 11-11-2024 TSH 1.720 uIU/mL Normal 0.300-4.200 [facility] Comment on above: Performed By: #### L 500.4050, L501.9520, L506.1001, L100.0100 #### [facility] [address] [place], [place], [address] Total proteinOrdered By: Sachin Blackwood on 11-11-2024 Protein [Mass/Vol] 6.8 g/dL 5.9-8.[address] [facility] Vitamin D,25 Hydroxyon 11-11 Vitamin D 25-OH 23.4 ng/mL Low 30-100 [facility] Comment on above: Result Comment: Karrie min D Status Deficiency: <20 ng/mL (50nmol/L) Insufficiency: 20-30 ng/mL (50-75 nmol/L) Sufficiency: 30-100 ng/mL (75-250 nmol/L) Toxicity: >100 ng/mL (>250 nmol/L) Performed By: #### L 500.4050, L501.9520, L506.1001, L100.0100 #### [facility] [address] [place], [address] White blood cell (WBC) count Ordered By: Sachin Blackwood on 11-11-2024 WBC (Bld) [#/Vol] 8.9 10*3/uL 4.4-11.[address] [facility] CBC + DIFFon 10-03-2024 Baso # 0.01 x10EE3/UL Normal 0.00 - 0.10 [facility] Comment on above: Performed By: #### 2 [id number] #### [facility],[address] [place] [address] Basophils/100 WBC (Bld) 0.1 % Normal 0.0 - 2.0 [facility] Comment on above: Performed By: #### 2 [id number] #### [facility],[address] [place] [address] CBC + DIFF Normal [facility] Comment on above: Result Comment: CBC- COMPLETE BLOOD COUNT Performed By: #### 2 [id number] #### [facility],[address] [place] [address] EO # 0.12 x10EE3/UL Normal 0.00 - 0.50 [facility] Comment on above: Performed By: #### 2 [id number] #### [place] [address] Eosinophils/100 WBC (Bld) 1.3 % Normal 0.0 - 7.0 [facility] Comment on above: Performed By: #### 2 39603 #### [place] [address] Erythrocyte distribution width (RBC) [Ratio] 13.1 % Normal 12.0 - 15.6 [facility] Comment on above: Performed By: #### 2 85187 #### [facility],[address] [place] [address] Hematocrit (Bld) [Volume fraction] 25.9 % Low 34.0 - 46.0 [facility] Comment on above: Performed By: #### 2 81401 #### [facility],[address] [place] [address] Hemoglobin (Bld) [Mass/Vol] 9.0 g/dL Low 12.0 - 16.0 [facility] Comment on above: Performed By: #### 2 02850 #### [facility],[address] [place] [address] Lymph # 1.50 x10EE3/UL Normal 0.80 - 2.80 [facility] Comment on above: Performed By: #### 2 72249 #### [facility],[address] [place] [address] Lymphocytes/100 WBC (Bld) 16.3 % Low 20.0 - 45.0 [facility] Comment on above: Performed By: #### 2 31339 #### [facility],[address] [place] [address] MANUAL DIFF N/A Normal [facility] Comment on above: Performed By: #### 2 63697 #### [place] [address] MCH (RBC) [Entitic mass] 32 pg Normal 27 - 33 [facility] Comment on above: Performed By: #### 2 84489 #### [place] [address] MCHC 35 X10 3 Normal 32 - 36 [facility] Comment on above: Performed By: #### 2 34897 #### [place] [address] MCV (RBC) [Entitic vol] 93 fL Normal 80 - 99 [facility] Comment on above: Performed By: #### 2 33474 #### [facility],[address] [place] [address] Gregory # 0.76 x10EE3/UL Normal 0.20 - 1.00 [facility] Comment on above: Performed By: #### 2 08400 #### [place] [address] MONOS % 8.3 % Normal 0.0 - 10.0 [facility] Comment on above: Performed By: #### 2 11055 #### [place] [address] Morphology Rogelio (Bld) [Interp] N/A Normal [facility] Comment on above: Performed By: #### 2 28258 #### [facility],[address] [place] [address] Neut # 6.79 x10EE3/UL Normal 1.50 - 7.10 [facility] Comment on above: Performed By: #### 2 12302 #### [facility],[address] [place] [address] Neutrophils/100 WBC (Bld) 74.0 % Normal 46.0 - 76.0 [facility] Comment on above: Performed By: #### 2 44058 #### [facility],[address] [place] [address] PLATELET 404 x10EE3/UL Normal 150 - 450 [facility] Comment on above: Performed By: #### 2 56169 #### [facility],[address] [place] [address] Platelet mean volume (Bld) [Entitic vol] 7.5 fL Normal 6.6 - 10.5 [facility] Comment on above: Result Comment: AUTO MATED DIFFERENTIAL Performed By: #### 2 66872 #### [facility],[address] [place] [address] RBC 2.77 x 10EE6/UL Low 4.10 - 5.30 [facility] Comment on above: Performed By: #### 2 86689 #### [facility],[address] [place], [place] [address] WBC 9.2 x 10EE3/UL Normal 4.5 - 10.8 [facility] Comment on above: Performed By: #### 2 35416 #### [facility],[address] [place] [address] CMP with eGFRon 10-03-2024 AGE 64 years Normal [facility] Comment on above: Performed By: #### 2 55755 #### [facility],[address] [place], [place] [address] Albumin [Mass/Vol] 2.0 g/dL Low 3.4 - 5.0 [facility] Comment on above: Performed By: #### 2 25201 #### [facility],[address] [place] [address] 13558 Albumin/Globulin [Mass ratio] 0.6 {ratio} Low 0.9 - 1.6 [facility] Comment on above: Performed By: #### 2 21760 #### [facility],[address] [place] [address] 04829 ALK PHOS 67 U/L Normal 46 - 116 [facility] Comment on above: Performed By: #### 2 91962 #### [facility],[address] [place] [address] 93585 ALT [Catalytic activity/Vol] 21 U/L Normal 16 - 63 [facility] Comment on above: Performed By: #### 2 01787 #### [facility],[address] [place] [address] 45723 Anion gap [Moles/Vol] 11 mmol/L Normal 10 - 20 [facility] Comment on above: Performed By: #### 2 88542 #### [facility],[address] [place] [address] 61393 AST [Catalytic activity/Vol] 13 U/L Normal 13 - 39 [facility] Comment on above: Performed By: #### 2 43235 #### [facility],[address] [place] [address] 98756 B/C RATIO 18 ratio Normal 0 - 30 [facility] Comment on above: Performed By: #### 2 11816 #### [facility],[address] [place] [address] 75214 Bilirubin [Mass/Vol] 0.2 mg/dL Normal 0.2 - 1.0 [facility] Comment on above: Performed By: #### 2 67955 #### [facility],[address] [place] [address] 02066 Calcium [Mass/Vol] 8.1 mg/dL Low 8.5 - 10.1 [facility] Comment on above: Performed By: #### 2 40363 #### [facility],[address] [place], [place] [address] Chloride [Moles/Vol] 99 mmol/L Normal 98 - 107 [facility] Comment on above: Performed By: #### 2 93326 #### [facility],[address] [place] [address] CMP with eGFR Normal [facility] Comment on above: Result Comment: COMP REHENSIVE METABOLIC PANEL Performed By: #### 2 98330 #### [facility],[address] [place] [address] CO2 [Moles/Vol] 26.1 mmol/L Normal 21.0 - 32.0 [facility] Comment on above: Performed By: #### 2 26805 #### [facility],[address] [place] [address] Creatinine [Mass/Vol] 0.57 mg/dL Normal 0.55 - 1.02 [facility] Comment on above: Performed By: #### 2 85406 #### [facility],[address] [place] [address] GFR/1.73 sq M.predicted among non-blacks MDRD (S/P/Bld) [Vol rate/Area] mL/min/{1.73_m2} Normal 60 - 999 [facility] Comment on above: Performed By: #### 2 14003 #### [facility],[address] [place] [address] Result Comment: ACCO RDING TO THE NATIONAL KIDNEY DISEASE EDUCATION PROGRAM(NKDE), A NORMAL eGFR IS A VALUE GREATER THAN OR EQUAL TO 60 ML/MIN/1.73 SQ METERS. CHRONIC KIDNEY DISEASE: <60mL/MIN/1.73 SQ METERS KIDNEY FAILURE: <15mL/MIN/1.73 SQ METERS THIS TEST SHOULD ONLY BE USED FOR PATIENTS 18 YEARS OF AGE AND OLDER. Globulin (S) [Mass/Vol] 3.2 g/dL Normal 1.5 - 3.8 [facility] Comment on above: Performed By: #### 2 65213 #### [facility],[address] [place] [address] 98782 Glucose [Mass/Vol] 198 mg/dL High 74 - 106 [facility] Comment on above: Performed By: #### 2 03754 #### [facility],[address] [place] [address] 18420 Potassium [Moles/Vol] 3.2 mmol/L Low 3.5 - 5.1 [facility] Comment on above: Performed By: #### 2 86418 #### [facility],[address] [place] [address] 06168 Protein [Mass/Vol] 5.2 g/dL Low 6.4 - 8.2 [facility] Comment on above: Performed By: #### 2 69406 #### [facility],[address] [place] [address] 58450 Sodium [Moles/Vol] 133 mmol/L Low 136 - 145 [facility] Comment on above: Performed By: #### 2 70070 #### [facility],[address] [place] [address] 77307 Urea nitrogen [Mass/Vol] 10 mg/dL Normal 7 - 18 [facility] Comment on above: Performed By: #### 2 45317 #### [facility],[address] [place] [address] 32038 Final Surgical Pathology Rep [facility] 10-03-2024 Final Surgical Pathology Report . Pathology Reports Accession: Collected Date/Time: Received Date/Time: Pathologist: [id number] 09/30/2024 16:43 EDT 10/01/2024 08:32 EDT LION SANCHEZ MD Final Surgical Pathology Report DIAGNOSIS: LEFT FEMORAL HEAD: - FEMORAL HEAD WITH MEDULLARY HEMORRHAGE CONSISTENT WITH FRACTURE. NO EVIDENCE OF INFLAMMATION OR TUMOR COMMENT: [facility]# [id number] CLINICAL INFORMATION: LEFT FEMORAL NECK FRACTURE SPECIMEN: A LEFT FEMORAL HEAD GROSS DESCRIPTION: All parts labelled with patient name and [id number] Received in formalin labelled "left femoral head" Is a mostly round femoral head measuring [...] marrow. Following decalcification. RS-1 Raymon Vizcaino, Pathologists' Passenger Attendant (ASCP) Performed by RAYMON VIZCAINO MICROSCOPIC DESCRIPTION: The microscopic examination is performed, except in the case of Gross Only. Verified by Pathology Report verified by [facility] LION SANCHEZ Sign out Date: 10/03/2024 14:06 Performing Lab: [facility], [address] [place] [address] Pathology Dept Disclaimer If ancillary studies were utilized, the following Laboratory Developed Test (LDT) disclaimer will apply: Under CLIA requirements, [facility] is qualified to perform high complexity testing. For all ancillary stains, positive and negative controls stain appropriately. Performance characteristics of immunohistochemical and chromogenic in-situ hybridization tests have been determined by [facility]. These tests are used for clinical purposes, They should not be regarded as investigational or for research. Normal [facility] LIPID PROFILEon 10-03-2024 Cholesterol [Mass/Vol] 130 mg/dL Normal 0 - 240 [facility] Comment on above: Performed By: #### 2 90733 #### [facility],[address] [place] [address] 02234 Cholesterol in HDL [Mass/Vol] 32 mg/dL Low 40 - 60 [facility] Comment on above: Performed By: #### 2 48757 #### [facility],[address] [place] [address] 13166 Cholesterol in LDL [Mass/Vol] 76 mg/dL Normal 0 - 129 [facility] Comment on above: Performed By: #### 2 54682 #### [facility],[address] [place] [address] 13779 Cholesterol.total/Chol esterol in HDL [Mass ratio] 4.1 {ratio} Normal 0.0 - 5.0 [facility] Comment on above: Performed By: #### 2 68079 #### [facility],[address] [place] [address] 95468 Lipid 1996 panel Normal [facility] Comment on above: Result Comment: LIPI D PROFILE Performed By: #### 2 15853 #### [facility],[address] [place] [address] 37344 Triglyceride [Mass/Vol] 108 mg/dL Normal 0 - 150 [facility] Comment on above: Performed By: #### 2 54392 #### [facility],[address] [place] [address] 27333 BMP with eGFRon 10-01-2024 AGE 64 years Normal [facility] Comment on above: Performed By: #### 2 98576 #### [facility],[address] [place] [address] 78160 Anion gap [Moles/Vol] 13 mmol/L Normal 10 - 20 [facility] Comment on above: Performed By: #### 2 34379 #### [facility],[address] [place] [address] 67860 BMP with eGFR Normal [facility] Comment on above: Result Comment: BASI C METABOLIC PANEL Performed By: #### 2 08277 #### [facility],[address] [place] [address] 33039 Calcium [Mass/Vol] 9.1 mg/dL Normal 8.5 - 10.1 [facility] Comment on above: Performed By: #### 2 30857 #### [facility],[address] [place] [address] 24516 Chloride [Moles/Vol] 104 mmol/L Normal 98 - 107 [facility] Comment on above: Performed By: #### 2 25315 #### [facility],[address] [place] [address] 16540 CO2 [Moles/Vol] 25.4 mmol/L Normal 21.0 - 32.0 [facility] Comment on above: Performed By: #### 2 20794 #### [facility],[address] [place] [address] 72716 Creatinine [Mass/Vol] 0.34 mg/dL Low 0.55 - 1.02 [facility] Comment on above: Performed By: #### 2 32501 #### [facility],[address] [place] [address] 17418 GFR/1.73 sq M.predicted among non-blacks MDRD (S/P/Bld) [Vol rate/Area] mL/min/{1.73_m2} Normal 60 - 999 [facility] Comment on above: Performed By: #### 2 36818 #### [facility],[address] [place], [place] [address] Result Comment: ACCO RDING TO THE NATIONAL KIDNEY DISEASE EDUCATION PROGRAM(NKDE), A NORMAL eGFR IS A VALUE GREATER THAN OR EQUAL TO 60 ML/MIN/1.73 SQ METERS. CHRONIC KIDNEY DISEASE: <60mL/MIN/1.73 SQ METERS KIDNEY FAILURE: <15mL/MIN/1.73 SQ METERS THIS TEST SHOULD ONLY BE USED FOR PATIENTS 18 YEARS OF AGE AND OLDER. Glucose [Mass/Vol] 117 mg/dL High 74 - 106 [facility] Comment on above: Performed By: #### 2 95352 #### [facility],[address] [place] [address] 37388 Potassium [Moles/Vol] 3.9 mmol/L Normal 3.5 - 5.1 [facility] Comment on above: Performed By: #### 2 17652 #### [facility],[address] [place] [address] 01441 Sodium [Moles/Vol] 138 mmol/L Normal 136 - 145 [facility] Comment on above: Performed By: #### 2 89323 #### [facility],[address] [place] [address] Urea nitrogen [Mass/Vol] 4 mg/dL Low - [facility] Comment on above: Performed By: #### 2 02268 #### [facility],[address] [place] [address] CBC + DIFFon 10-01-2024 Baso # 0.02 x10EE3/UL Normal 0.00 - 0.10 [facility] Comment on above: Performed By: #### 2 90484 #### [facility],[address] [place], [place] [address] Basophils/100 WBC (Bld) 0.2 % Normal 0.0 - 2.0 [facility] Comment on above: Performed By: #### 2 39336 #### [facility],[address] [place] [address] CBC + DIFF Normal [facility] Comment on above: Result Comment: CBC- COMPLETE BLOOD COUNT Performed By: #### 2 44229 #### [facility],[address] [place] [address] EO # 0.14 x10EE3/UL Normal 0.00 - 0.50 [facility] Comment on above: Performed By: #### 2 33353 #### [facility],[address] [place], [place] [address] Eosinophils/100 WBC (Bld) 1.3 % Normal 0.0 - 7.0 [facility] Comment on above: Performed By: #### 2 72131 #### [facility],[address] [place] [address] Erythrocyte distribution width (RBC) [Ratio] 13.2 % Normal 12.0 - 15.6 [facility] Comment on above: Performed By: #### 2 63622 #### [facility],[address] [place] [address] Hematocrit (Bld) [Volume fraction] 35.6 % Normal 34.0 - 46.0 [facility] Comment on above: Performed By: #### 2 93639 #### [facility],[address] [place] [address] Hemoglobin (Bld) [Mass/Vol] 12.4 g/dL Normal 12.0 - 16.0 [facility] Comment on above: Performed By: #### 2 07983 #### [facility],[address] [place] [address] Lymph # 1.46 x10EE3/UL Normal 0.80 - 2.80 [facility] Comment on above: Performed By: #### 2 38969 #### [facility],[address] [place] [address] Lymphocytes/100 WBC (Bld) 12.8 % Low 20.0 - 45.0 [facility] Comment on above: Performed By: #### 2 00784 #### [facility],[address] [place], [place] [address] MANUAL DIFF N/A Normal [facility] Comment on above: Performed By: #### 2 41794 #### [facility],[address] [place] [address] MCH (RBC) [Entitic mass] 33 pg Normal 27 - 33 [facility] Comment on above: Performed By: #### 2 76721 #### [facility],[address] [place] [address] MCHC 35 X10 3 Normal 32 - 36 [facility] Comment on above: Performed By: #### 2 22041 #### [facility],[address] [place], [place] [address] MCV (RBC) [Entitic vol] 94 fL Normal 80 - 99 [facility] Comment on above: Performed By: #### 2 45951 #### [facility],[address] [place] [address] Gregory # 0.82 x10EE3/UL Normal 0.20 - 1.00 [facility] Comment on above: Performed By: #### 2 19517 #### [facility],[address] [place] [address] 11559 MONOS % 7.2 % Normal 0.0 - 10.0 [facility] Comment on above: Performed By: #### 2 18470 #### [facility],[address] [place] [address] Morphology Rogelio (Bld) [Interp] N/A Normal [facility] Comment on above: Performed By: #### 2 73689 #### [facility],[address] [place] [address] Neut # 8.93 x10EE3/UL High 1.50 - 7.10 [facility] Comment on above: Performed By: #### 2 56814 #### [facility],[address] [place] [address] Neutrophils/100 WBC (Bld) 78.6 % High 46.0 - 76.0 [facility] Comment on above: Performed By: #### 2 68361 #### [facility],[address] [place] [address] PLATELET 578 x10EE3/UL High 150 - 450 [facility] Comment on above: Performed By: #### 2 98159 #### [facility],[address] [place] [address] Platelet mean volume (Bld) [Entitic vol] 6.8 fL Normal 6.6 - 10.5 [facility] Comment on above: Result Comment: AUTO MATED DIFFERENTIAL Performed By: #### 2 01881 #### [facility],[address] [place] [address] RBC 3.77 x 10EE6/UL Low 4.10 - 5.30 [facility] Comment on above: Performed By: #### 2 38691 #### [facility],[address] [place] [address] WBC 11.4 x 10EE3/UL High 4.5 - 10.8 [facility] Comment on above: Performed By: #### 2 90475 #### [facility],[address] [place] [address] 74548 BMP with eGFRon 09-30-2024 AGE 64 years Normal [facility] Comment on above: Performed By: #### 2 78727 #### [facility],[address] [place] [address] 85990 Anion gap [Moles/Vol] 14 mmol/L Normal 10 - 20 [facility] Comment on above: Performed By: #### 2 20306 #### [facility],[address] [place] [address] 93804 BMP with eGFR Normal [facility] Comment on above: Result Comment: BASI C METABOLIC PANEL Performed By: #### 2 40317 #### [facility],[address] [place] [address] 21221 Calcium [Mass/Vol] 9.0 mg/dL Normal 8.5 - 10.1 [facility] Comment on above: Performed By: #### 2 91473 #### [facility],[address] [place] [address] 90026 Chloride [Moles/Vol] 104 mmol/L Normal 98 - 107 [facility] Comment on above: Performed By: #### 2 76168 #### [facility],[address] [place] [address] 86306 CO2 [Moles/Vol] 25.3 mmol/L Normal 21.0 - 32.0 [facility] Comment on above: Performed By: #### 2 46220 #### [facility],[address] [place] [address] 36417 Creatinine [Mass/Vol] 0.40 mg/dL Low 0.55 - 1.02 [facility] Comment on above: Performed By: #### 2 44650 #### [facility],[address] [place], [place] [address] GFR/1.73 sq M.predicted among non-blacks MDRD (S/P/Bld) [Vol rate/Area] mL/min/{1.73_m2} Normal 60 - 999 [facility] Comment on above: Performed By: #### 2 13881 #### [facility],[address] [place] [address] Result Comment: ACCO RDING TO THE NATIONAL KIDNEY DISEASE EDUCATION PROGRAM(NKDE), A NORMAL eGFR IS A VALUE GREATER THAN OR EQUAL TO 60 ML/MIN/1.73 SQ METERS. CHRONIC KIDNEY DISEASE: <60mL/MIN/1.73 SQ METERS KIDNEY FAILURE: <15mL/MIN/1.73 SQ METERS THIS TEST SHOULD ONLY BE USED FOR PATIENTS 18 YEARS OF AGE AND OLDER. Glucose [Mass/Vol] 110 mg/dL High 74 - 106 [facility] Comment on above: Performed By: #### 2 94811 #### [place] [id number] Potassium [Moles/Vol] 4.1 mmol/L Normal 3.5 - 5.1 [facility] Comment on above: Performed By: #### 2 86906 #### [place] [id number] Sodium [Moles/Vol] 139 mmol/L Normal 136 - 145 [facility] Comment on above: Performed By: #### 2 02172 #### [place] [id number] Urea nitrogen [Mass/Vol] 5 mg/dL Low 7 - 18 [facility] Comment on above: Performed By: #### 2 71768 #### [address] [address] CBC + DIFFon 09-30-2024 Baso # 0.01 x10EE3/UL Normal 0.00 - 0.10 [facility] Comment on above: Performed By: #### 2 23706 #### [facility] [place] [address] 87413 Basophils/100 WBC (Bld) 0.1 % Normal 0.0 - 2.0 [facility] Comment on above: Performed By: #### 2 84436 #### [facility],[address] [place] [address] CBC + DIFF Normal [facility] Comment on above: Result Comment: CBC- COMPLETE BLOOD COUNT Performed By: #### 2 91305 #### [facility],[address] [place] [address] EO # 0.07 x10EE3/UL Normal 0.00 - 0.50 [facility] Comment on above: Performed By: #### 2 69219 #### [facility],[address] [place], [place] [address] Eosinophils/100 WBC (Bld) 0.8 % Normal 0.0 - 7.0 [facility] Comment on above: Performed By: #### 2 13403 #### [facility],[address] [place] [address] Erythrocyte distribution width (RBC) [Ratio] 13.1 % Normal 12.0 - 15.6 [facility] Comment on above: Performed By: #### 2 43342 #### [facility],[address] [place] [address] Hematocrit (Bld) [Volume fraction] 38.8 % Normal 34.0 - 46.0 [facility] Comment on above: Performed By: #### 2 30845 #### [facility],[address] [place], [place] [address] Hemoglobin (Bld) [Mass/Vol] 13.5 g/dL Normal 12.0 - 16.0 [facility] Comment on above: Performed By: #### 2 18770 #### [facility],[address] [place] [address] 65732 Lymph # 1.69 x10EE3/UL Normal 0.80 - 2.80 [facility] Comment on above: Performed By: #### 2 58318 #### [facility],[address] [place] [address] 89247 Lymphocytes/100 WBC (Bld) 19.0 % Low 20.0 - 45.0 [facility] Comment on above: Performed By: #### 2 11348 #### [facility],[address] [place] [address] 96853 MANUAL DIFF N/A Normal [facility] Comment on above: Performed By: #### 2 83348 #### [facility],[address] [place], [place] [address] MCH (RBC) [Entitic mass] 33 pg Normal 27 - 33 [facility] Comment on above: Performed By: #### 2 13394 #### [facility],[address] [place] [address] MCHC 35 X10 3 Normal 32 - 36 [facility] Comment on above: Performed By: #### 2 45278 #### [facility],[address] [place] [address] 83279 MCV (RBC) [Entitic vol] 95 fL Normal 80 - 99 [facility] Comment on above: Performed By: #### 2 69792 #### [facility],[address] [place] [address] 98996 Gregory # 0.59 x10EE3/UL Normal 0.20 - 1.00 [facility] Comment on above: Performed By: #### 2 91233 #### [facility],[address] [place] [address] 24152 MONOS % 6.7 % Normal 0.0 - 10.0 [facility] Comment on above: Performed By: #### 2 89084 #### [facility],[address] [place] [address] 51239 Morphology Rogelio (Bld) [Interp] N/A Normal [facility] Comment on above: Performed By: #### 2 29424 #### [facility],[address] [place] [address] 53313 Neut # 6.54 x10EE3/UL Normal 1.50 - 7.10 [facility] Comment on above: Performed By: #### 2 82432 #### [facility],[address] [place] [address] 98018 Neutrophils/100 WBC (Bld) 73.4 % Normal 46.0 - 76.0 [facility] Comment on above: Performed By: #### 2 94602 #### [facility],[address] [place] [address] 76735 PLATELET 572 x10EE3/UL High 150 - 450 [facility] Comment on above: Performed By: #### 2 34009 #### [facility],[address] [place] [address] 84589 Platelet mean volume (Bld) [Entitic vol] 6.9 fL Normal 6.6 - 10.5 [facility] Comment on above: Result Comment: AUTO MATED DIFFERENTIAL Performed By: #### 2 61211 #### [facility],[address] [place] [address] 18491 RBC 4.09 x 10EE6/UL Low 4.10 - 5.30 [facility] Comment on above: Performed By: #### 2 39907 #### [facility],[address] [place] [address] 94127 WBC 8.9 x 10EE3/UL Normal 4.5 - 10.8 [facility] Comment on above: Performed By: #### 2 86200 #### [facility],[address] [place] [address] 30598 CHEST 1 VIEWon 09-30-2024 CHEST 1 VIEW [place] [address] Patient: JEREMY TURNER Phone#: : 1960 Age: 64 Gender: F Pt. Type: In Account: [id number] Location: 010 Ordering: [facility] [place] Exam Date: 09/30/2024/9:19 Family Phys: EDD RINALDI Charge Code: 476116 Physician: Jay Order #: [id number] Dose#: PROCEDURE: X-RAY CHEST 1 VIEW COMPARISON: [facility], XR, CHEST 1 VIEW, 09/29/2024, 11:19. INDICATIONS: [...] Christina MD on 09/30/2024 at 9:59 Normal [facility] CV VENOUS LEG LTon 5 CV VENOUS LEG LT [place] [address] Patient: JEREMY TURNER Phone#: : 1960 Age: 64 Gender: F Pt. Type: In Account: [id number] Location: 010 Ordering: [facility] [place] Exam Date: 09/30/2024/10:05 Family Phys: EDD RINALDI Charge Code: 627496 Physician: Jay Order #: [id number] Dose#: PROCEDURE: VENOUS DOPPLER LT LEG COMPARISON: None. INDICATIONS: Trauma TECHNIQUE: Color duplex Doppler ultrasound evaluation analysis was performed in the usual manner. STONE ENGRAVER: SUNNY IRIZARRY RVT [facility] RISK FACTORS FOR VENOUS DISEASE: [...] o + GSV + GASTROC SOLEAL V STONE ENGRAVER'S NOTES: FINDINGS: THROMBI: None visible. Continued Report - Page 2 of 2 Patient: JEREMY TURNER Phone#: : 1960 Age: 64 Gender: F Pt. Type: In Account: [id number] Location: 010 Ordering: [facility] Exam Date: 09/30/2024/10:05 Family Phys: EDD RINALDI Charge Code: 111284 Physician: Jay Order #: [id number] Dose#: COMPRESSIBILITY: Normal. OTHER: Negative. CONCLUSION: 1. There is no evidence of superficial or deep vein thrombus. Dictated by: Monique Christina MD on 09/30/2024 at 10:44 Approved by: Monique Christina MD on 09/30/2024 at 10:45 Normal [facility] HIP COMPLETE LT MIN 2 VIEWS W/PELVISon 09-30-2024 HIP COMPLETE LT MIN 2 VIEWS W/PELVIS [place] [address] Patient: JEREMY TURNER Phone#: : 1960 Age: 64 Gender: F Pt. Type: In Account: [id number] Location: 010 Ordering: [facility] Exam Date: 09/30/2024/18:47 Family Phys: EDD RINALDI Charge Code: 020412 Physician: Jay Order #: [id number] Dose#: PROCEDURE: X-RAY HIP LT COMPLETE MIN 2 VIEWS W/PELVIS COMPARISON: [facility], HIP COMPLETE LT, 09/29/2024, 10:33. INDICATIONS: Post [...] Quintero MD on 09/30/2024 at 19:26 Normal [facility] ANKLE COMPLETE LTon 09-30-19 25 ANKLE COMPLETE LT [place] [address] Patient: JEREMY TURNER Phone#: : 1960 Age: 64 Gender: F Pt. Type: ER Account: [id number] Location: [facility] Ordering: AMBREEN FERRERA Exam Date: 09/29/2024/10:03 Family Phys: EDD RINALDI Charge Code: 877652 Physician: Jay Order #: [id number] Dose#: PROCEDURE: X-RAY ANKLE COMPLETE LT MIN [...] Christina MD on 09/30/2024 at 0:00 Normal [facility] CBC + DIFFon 09-29-2024 Baso # 0.01 x10EE3/UL Normal 0.00 - 0.10 [facility] Comment on above: Performed By: #### 2 62779 #### [facility],[address] [place] [address] Basophils/100 WBC (Bld) 0.1 % Normal 0.0 - 2.0 [facility] Comment on above: Performed By: #### 2 67685 #### [facility],[address] [place], [place] [address] CBC + DIFF Normal [facility] Comment on above: Result Comment: CBC- COMPLETE BLOOD COUNT Performed By: #### 2 44084 #### [place] [address] EO # 0.10 x10EE3/UL Normal 0.00 - 0.50 [facility] Comment on above: Performed By: #### 2 16888 #### [place] [address] Eosinophils/100 WBC (Bld) 1.1 % Normal 0.0 - 7.0 [facility] Comment on above: Performed By: #### 2 38792 #### [place] [address] Erythrocyte distribution width (RBC) [Ratio] 13.0 % Normal 12.0 - 15.6 [facility] Comment on above: Performed By: #### 2 17135 #### [place] [address] Hematocrit (Bld) [Volume fraction] 35.4 % Normal 34.0 - 46.0 [facility] Comment on above: Performed By: #### 2 70437 #### [place] [address] Hemoglobin (Bld) [Mass/Vol] 12.2 g/dL Normal 12.0 - 16.0 [facility] Comment on above: Performed By: #### 2 73639 #### [place] [address] Lymph # 2.17 x10EE3/UL Normal 0.80 - 2.80 [facility] Comment on above: Performed By: #### 2 18695 #### [place] [address] Lymphocytes/100 WBC (Bld) 25.0 % Normal 20.0 - 45.0 [facility] Comment on above: Performed By: #### 2 31812 #### [address],[place] [address] MANUAL DIFF N/A Normal [facility] Comment on above: Performed By: #### 2 95586 #### [facility],[address] [place] [address] MCH (RBC) [Entitic mass] 32 pg Normal 27 - 33 [facility] Comment on above: Performed By: #### 2 53776 #### [facility],[address] [place] [address] MCHC 34 X10 3 Normal 32 - 36 [facility] Comment on above: Performed By: #### 2 49988 #### [facility],[address] [place] [address] MCV (RBC) [Entitic vol] 93 fL Normal 80 - 99 [facility] Comment on above: Performed By: #### 2 53523 #### [facility],[address] [place] [address] Gregory # 0.59 x10EE3/UL Normal 0.20 - 1.00 [facility] Comment on above: Performed By: #### 2 77216 #### [facility],[address] [place] [address] MONOS % 6.8 % Normal 0.0 - 10.0 [facility] Comment on above: Performed By: #### 2 35010 #### [facility],[address] [place] [address] Morphology Rogelio (Bld) [Interp] N/A Normal [facility] Comment on above: Performed By: #### 2 14981 #### [place] [address] Neut # 5.80 x10EE3/UL Normal 1.50 - 7.10 [facility] Comment on above: Performed By: #### 2 72506 #### [place] [address] Neutrophils/100 WBC (Bld) 66.9 % Normal 46.0 - 76.0 [facility] Comment on above: Performed By: #### 2 30654 #### [facility],[address] [place] [address] PLATELET 500 x10EE3/UL High 150 - 450 [facility] Comment on above: Performed By: #### 2 66096 #### [facility],[address] [place] [address] Platelet mean volume (Bld) [Entitic vol] 6.4 fL Low 6.6 - 10.5 [facility] Comment on above: Result Comment: AUTO MATED DIFFERENTIAL Performed By: #### 2 57468 #### [facility],[address] [place] [address]3507 RBC 3.83 x 10EE6/UL Low 4.10 - 5.30 [facility] Comment on above: Performed By: #### 2 91691 #### [facility],[address] [place] [address] 17355 WBC 8.7 x 10EE3/UL Normal 4.5 - 10.8 [facility] Comment on above: Performed By: #### 2 67629 #### [facility],[address] [place] [address]65[address] CHEST 1 VIEWon 09-29-2024 CHEST 1 VIEW [place] [address] Patient: JEREMY TURNER Phone#: : 1960 Age: 64 Gender: F Pt. Type: ER Account: [id number] Location: 010 Ordering: AMBREEN FERRERA Exam Date: 09/29/2024/11:19 Family Phys: EDD RINALDI Charge Code: 933750 Physician: Jay Order #: [id number] Dose#: PROCEDURE: X-RAY CHEST 1 VIEW COMPARISON: [facility], , CHEST 2 VIEWS, 06/16/2021, 12:38. INDICATIONS: [...] Christina MD on 09/30/2024 at 8:43 Normal [facility] CMP with eGFRon 09-29-2024 AGE 64 years Normal [facility] Comment on above: Performed By: #### 2 59059 #### [facility],[address] [place] [address] 22747 Albumin [Mass/Vol] 3.5 g/dL Normal 3.4 - 5.0 [facility] Comment on above: Performed By: #### 2 87307 #### [facility],[address] [place] [address] 19392 Albumin/Globulin [Mass ratio] 0.9 {ratio} Normal 0.9 - 1.6 [facility] Comment on above: Performed By: #### 2 49480 #### [facility],[address] [place] [address] 18153 ALK PHOS 106 U/L Normal 46 - 116 [facility] Comment on above: Performed By: #### 2 97694 #### [facility],[address] [place] [address] 89768 ALT [Catalytic activity/Vol] 29 U/L Normal 16 - 63 [facility] Comment on above: Performed By: #### 2 13528 #### [facility],[address] [place] [address] 86542 Anion gap [Moles/Vol] 14 mmol/L Normal 10 - 20 [facility] Comment on above: Performed By: #### 2 37200 #### [facility],[address] [place] [address] 38062 AST [Catalytic activity/Vol] 18 U/L Normal 13 - 39 [facility] Comment on above: Performed By: #### 2 40980 #### [facility],[address] [place] [address] 99202 B/C RATIO 17 ratio Normal 0 - 30 [facility] Comment on above: Performed By: #### 2 49537 #### [facility],[address] [place] [address] 96594 Bilirubin [Mass/Vol] 0.3 mg/dL Normal 0.2 - 1.0 [facility] Comment on above: Performed By: #### 2 72962 #### [facility],[address] [place] [address] 49969 Calcium [Mass/Vol] 9.4 mg/dL Normal 8.5 - 10.1 [facility] Comment on above: Performed By: #### 2 68627 #### [facility],[address] [place] [address] 32751 Chloride [Moles/Vol] 100 mmol/L Normal 98 - 107 [facility] Comment on above: Performed By: #### 2 61241 #### [facility],[address] [place] [address] 71002 CMP with eGFR Normal [facility] Comment on above: Result Comment: COMP REHENSIVE METABOLIC PANEL Performed By: #### 2 12832 #### [facility],[address] [place] [address] 79552 CO2 [Moles/Vol] 25.6 mmol/L Normal 21.0 - 32.0 [facility] Comment on above: Performed By: #### 2 86656 #### [facility],[address] [place] [address] 79001 Creatinine [Mass/Vol] 0.53 mg/dL Low 0.55 - 1.02 [facility] Comment on above: Performed By: #### 2 68464 #### [facility],[address] [place] [address] 47939 GFR/1.73 sq M.predicted among non-blacks MDRD (S/P/Bld) [Vol rate/Area] mL/min/{1.73_m2} Normal 60 - 999 [facility] Comment on above: Performed By: #### 2 79811 #### [facility],[address] [place], [place] [address] Result Comment: ACCO RDING TO THE NATIONAL KIDNEY DISEASE EDUCATION PROGRAM(NKDE), A NORMAL eGFR IS A VALUE GREATER THAN OR EQUAL TO 60 ML/MIN/1.73 SQ METERS. CHRONIC KIDNEY DISEASE: <60mL/MIN/1.73 SQ METERS KIDNEY FAILURE: <15mL/MIN/1.73 SQ METERS THIS TEST SHOULD ONLY BE USED FOR PATIENTS 18 YEARS OF AGE AND OLDER. Globulin (S) [Mass/Vol] 3.8 g/dL Normal 1.5 - 3.8 [facility] Comment on above: Performed By: #### 2 08199 #### [facility],[address] [place] [address] 37146 Glucose [Mass/Vol] 98 mg/dL Normal 74 - 106 [facility] Comment on above: Performed By: #### 2 00989 #### [facility],[address] [place] [address] 48635 Potassium [Moles/Vol] 3.3 mmol/L Low 3.5 - 5.1 [facility] Comment on above: Performed By: #### 2 72989 #### [facility],[address] [place] [address] 13850 Protein [Mass/Vol] 7.3 g/dL Normal 6.4 - 8.2 [facility] Comment on above: Performed By: #### 2 32091 #### [facility],[address] [place] [address] 59743 Sodium [Moles/Vol] 136 mmol/L Normal 136 - 145 [facility] Comment on above: Performed By: #### 2 51877 #### [facility],[address] [place] [address] 60070 Urea nitrogen [Mass/Vol] 9 mg/dL Normal 7 - 18 [facility] Comment on above: Performed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 on 08-08-2024 GFR/1.73 sq M.predicted among non-blacks MDRD (S/P/Bld) [Vol rate/Area] 60 mL/min/{1.73_m2} >60 [facility] Comment on above: mL/min/1.73m2 CKD-EP I Creatinine Equation (2020) Hematocrit Auto (Bld) [Volum e fraction]Ordered By: Sachin Blackwood on 08-08-2024 Hematocrit (Bld) [Volume fraction] 43.8 % 37-47 [facility] Hemoglobin measurementOrdere d By: Sachin Blackwood on 08-08-2024 Hemoglobin (Bld) [Mass/Vol] 14.4 g/dL 12.0-15.0 [facility] Hepatitis C Antibodyon 08-08 Hepatitis C Ab Non-Reactive Normal Nonreactive [facility] Comment on above: Result Comment: Reac tive: Presumptive evidence of antibodies to HCV. Follow CDC recommendations for supplemental testing. Non-Reactive: Antibodies to HCV were not detected; does not exclude the possibility of exposure to HCV Reactive Results are presumptive evidence of antibodies to HCV. Follow CDC recommendations for supplemental testing. Order confirmation testing: HCV Quant by PCR testing - HCVPCR #[id number] Non Reactive: < 0.8 Equivocal: >/= 0.8 to < 1.0 Reactive: >/= 1.0 The CDC requires that a reactive/equivocal HCV antibody result be sent out for confirmation. HCV Quant by PCR testing. Performed By: #### L 100.0100, L500.4050, L500.4100, L3890.6301, L501.9520, L506.1001 #### [facility] [address] [place], [place], [address] Immature granulocytes/100 WB C Auto (Bld)Ordered By: Sachin Blackwood on 08-08-2024 Immature granulocytes/100 WBC (Bld) 0.300 % 0.0-0.9 [facility] Comment on above: IG% - Immature Granu locytes (promyelocytes, myelocytes and metamyelocytes) > 1% indicates that a LEFT SHIFT is Present. LDL calc ser/plasOrdered By: Sachin Blackwood on 08-08-2024 Cholesterol in LDL [Mass/Vol] 118 mg/dL [facility] Comment on above: Uaccxqkpxo=784-442 m g/dL & Higher Ummg=927 mg/dL or greater Laboratory - Chemistry and C hemistry - challengeOrdered By: Sachin Blackwood on 08-08-2024 AST [Catalytic activity/Vol] 23 U/L <32 [facility] Lipid Profileon 08-08-2024 CHOL:HDL 3.54 Normal [facility] Comment on above: Performed By: #### L 100.0100, L500.4050, L500.4100, L3890.6301, L501.9520, L506.1001 #### [facility] [address] [place], [address] Cholesterol [Mass/Vol] 205 mg/dL High <=200 [facility] Comment on above: Result Comment: Chol esterol level, Desirable <200 mg/dL Borderline high cholesterol 200-239 mg/dL High cholesterol >=240 mg/dL Recommendations of the NCEP Adult Treatment Panel for the following risk-cutoff thresholds for the [place] population. Performed By: #### L 100.0100, L500.4050, L500.4100, L3890.6301, L501.9520, L506.1001 #### [facility] [address] [place], [address] Cholesterol in HDL [Mass/Vol] 58 mg/dL Normal [facility] Comment on above: Result Comment: Maria Elena onal Cholesterol Education Program (NCEP) guidelines: <40 mg/dL: Low HDL-cholesterol (major risk factor for CHD) >= 60 mg/dL: High HDL-cholesterol (negative risk factor for CHD) HDL-cholesterol is affected by a number of factors, e.g. smoking, exercise, hormones, sex and age. Performed By: #### L 100.0100, L500.4050, L500.4100, L3890.6301, L501.9520, L506.1001 #### [facility] [address] [place], [address] Cholesterol in LDL [Mass/Vol] 118 mg/dL Normal [facility] Comment on above: Result Comment: Bord cqgufk=215-477 mg/dL Higher Vuqq=623 mg/dL or greater Performed By: #### L 100.0100, L500.4050, L500.4100, L3890.6301, L501.9520, L506.1001 #### [facility] [address] [place], [address] Cholesterol in VLDL [Mass/Vol] 29 mg/dL Normal 5-40 [facility] Comment on above: Performed By: #### L 100.0100, L500.4050, L500.4100, L3890.6301, L501.9520, L506.1001 #### [facility] [address] [place], [address] Triglyceride [Mass/Vol] 147 mg/dL Normal [facility] Comment on above: Result Comment: The drugs N-Acetylcysteine and Metamizole may falsely depress this assay. Normal range: <150 mg/dL Borderline High: 150-199 mg/dL High: 200-499 mg/dL Very High: >500 mg/dL Performed By: #### L 100.0100, L500.4050, L500.4100, L3890.6301, L501.9520, L506.1001 #### [facility] [address] [place], [address] MCV (mean corpuscular volume ) determinationOrdered By: Sachin Blackwood on 08-08-2024 MCV (RBC) [Entitic vol] 95.2 fL 81-99 [facility] Mean corpuscular hemoglobin (MCH) determinationOrdered By: Sachin Blackwood on 08-08-2024 MCH (RBC) [Entitic mass] 31.3 pg 27.0-32.0 [facility] Mean corpuscular hemoglobin concentration (MCHC) determinationOrdered By: Sachin Blackwood on 08-08-2024 MCHC (RBC) [Mass/Vol] 32.9 g/dL 32-36 [facility] Mean platelet volume determi nationOrdered By: Sachin Blackwood on 08-08-2024 Platelet mean volume (Bld) [Entitic vol] 9.5 fL 6.2-12.0 [facility] Monocyte percentageOrdered B y: Sachin Blackwood on 08-08-2024 Monocytes/100 WBC (Bld) 9.4 % 0-10 [facility] Neutrophil percentageOrdered By: Sachin Blackwood on 08-08-2024 Neutrophils/100 WBC (Bld) 57.8 % 47-70 [facility] Nucleated red blood cell per centageOrdered By: Sachin Blackwood on 08-08-2024 Nucleated RBC/100 WBC (Bld) [Ratio] 0 % 0-5 [facility] Platelet countOrdered By: Elijah Blackwood on 08-08-2024 Platelets (Bld) [#/Vol] 559 10*3/uL High 150-450 [facility] Potassium measurement (mass/ volume)Ordered By: Sachin Blackwood on 08-08-2024 Potassium (Unsp spec) [Mass/Vol] 3.4 mmol/L 3.3-5.1 [facility] RBC Auto (Bld) [#/Vol]Ordere d By: Sachin Blackwood on 08-08-2024 RBC (Bld) [#/Vol] 4.60 10*6/uL 4.2-5.4 [facility] [place] [facility] Screening total cholesterol/ high density lipoprotein (HDL) cholesterol ratioOrdered By: Sachin Blackwood 08-08-2024 Cholesterol.total/Chol esterol in HDL [Mass ratio] 3.54 {ratio} [facility] Serum creatinine measurement (mass/volume)Ordered By: Sachin Blackwood 08-08-2024 Creatinine [Mass/Vol] 1.03 mg/dL 0.70-1.20 [facility] Serum globulin measurementOr dered By: Sachin Blackwood 08-08-2024 Globulin (S) [Mass/Vol] 3.2 g/dL 2.2-4.2 [facility] Serum glucose measurement (m ass/volume)Ordered By: Sachin Blackwood 08-08-2024 Glucose [Mass/Vol] 94 mg/dL 70-[address] [facility] Serum or plasma alanine lewis otransferase (ALT) measurementOrdered By: Sachin Blackwood 08-08-2024 ALT [Catalytic activity/Vol] 20 U/L <35 [facility] Serum or plasma albumin phoenix urement (mass/volume)Ordered By: Sachin Blackwood 08-08-2024 Albumin [Mass/Vol] 4.8 g/dL 3.4-4.[address] [facility] Serum or plasma albumin/glob ulin mass ratioOrdered By: Sachin Blackwood 08-08-2024 Albumin/Globulin [Mass ratio] 1.5 {ratio} 0.9-2.4 [facility] Serum or plasma alkaline jose sphatase measurementOrdered By: Sachin Blackwood 08-08-2024 ALP [Catalytic activity/Vol] 74 U/L 35-104 [facility] Serum or plasma calcium phoenix urement (mass/volume)Ordered By: Sachin Blackwood on 08-08-2024 Calcium [Mass/Vol] 10.1 mg/dL 7.6-11.[address] [facility] Serum or plasma cholesterol in HDL measurement (mass/volume)Ordered By: Sachin Blackwood on 08-08-2024 Cholesterol in HDL [Mass/Vol] 58 mg/dL >40 [facility] Comment on above: National Cholesterol Education Program (NCEP) guidelines:<40 mg/dL: Low HDL-cholesterol (major risk factor for CHD)>= 60 mg/dL: High HDL-cholesterol (negative risk factor for CHD)HDL-cholesterol is affected by a number of factors, e.g. smoking, exercise, hormones, sex and age. Serum or plasma cholesterol measurement (mass/volume)Ordered By: Sachin Blackwood on 08-08-2024 Cholesterol [Mass/Vol] 205 mg/dL High <201 [facility] Comment on above: Cholesterol level, D esirable <200 mg/dLBorderline high cholesterol 200-239 mg/dLHigh cholesterol >=240 mg/dLRecommendations of the NCEP Adult Treatment Panel for the following risk-cutoff thresholds for the [place] population. Serum or plasma urea nitroge n measurement (mass/volume)Ordered By: Sachin Blackwood on 08-08-2024 Urea nitrogen [Mass/Vol] 11 mg/dL 4-19 [facility] Sodium levelOrdered By: Sachin Blackwood 08-08-2024 Sodium [Moles/Vol] 140 mmol/L 133-[address] [facility] TSH DL <= 0.005 mIU/L QnOrde red By: Sachin Blackwood on 08-08-2024 TSH Qn 2.830 uIU/mL 0.300-4.200 [facility] Thyroid Stim Hormone (TSH)on 08-08-2024 TSH 2.830 uIU/mL Normal 0.300-4.200 [facility] Comment on above: Performed By: #### L 100.0100, L500.4050, L500.4100, L3890.6301, L501.9520, L506.1001 #### [facility] [address] [place], [address] Total proteinOrdered By: Sachin Blackwood on 08-08-2024 Protein [Mass/Vol] 7.9 g/dL 5.9-8.[address] [facility] Triglycerides measurementOrd ered By: Sachin Blackwood on 08-08-2024 Triglyceride [Mass/Vol] 147 mg/dL <199 [facility] Comment on above: The drugs N-Acetylcy steine and Metamizole may falsely depress this assay. Normal range: <150 mg/dLBorderline High: 150-199 mg/dLHigh: 200-499 mg/dLVery High: >500 mg/dL Vitamin D,25 Hydroxyon 08-08 Vitamin D 25-OH 30.5 ng/mL Normal 30-100 [facility] Comment on above: Result Comment: Karrie min D Status Deficiency: <20 ng/mL (50nmol/L) Insufficiency: 20-30 ng/mL (50-75 nmol/L) Sufficiency: 30-100 ng/mL (75-250 nmol/L) Toxicity: >100 ng/mL (>250 nmol/L) Performed By: #### L 500.4050, L501.9520, L506.1001, L100.0100 #### [facility] [address] [place] [address], [address] White blood cell (WBC) count Ordered By: Sachin Blackwood on 08-08-2024 WBC (Bld) [#/Vol] 9.9 10*3/uL 4.4-11.[address] [facility] CBC (NO DIFF)on 07-19-2024 CBC panel Auto (Bld) Normal [facility] Comment on above: Result Comment: CBC( WITHOUT DIFFERENTIAL) Performed By: #### 2 [id number] #### [facility],[address] [place] [address] Erythrocyte distribution width (RBC) [Ratio] 12.7 % Normal 12.0 - 15.6 [facility] Comment on above: Performed By: #### 2 [id number] #### [facility],[address] [place] [address] Hematocrit (Bld) [Volume fraction] 37.5 % Normal 34.0 - 46.0 [facility] Comment on above: Performed By: #### 2 70958 #### [facility],[address] [place] [address] 18700 Hemoglobin (Bld) [Mass/Vol] 12.7 g/dL Normal 12.0 - 16.0 [facility] Comment on above: Performed By: #### 2 25940 #### [facility],[address] [place] [address] 11232 MCH (RBC) [Entitic mass] 32 pg Normal 27 - 33 [facility] Comment on above: Performed By: #### 2 32160 #### [facility],[address] [place] [address] 85455 MCHC 34 X10 3 Normal 32 - 36 [facility] Comment on above: Performed By: #### 2 23988 #### [facility],[address] [place] [address] 28926 MCV (RBC) [Entitic vol] 95 fL Normal 80 - 99 [facility] Comment on above: Performed By: #### 2 51039 #### [facility],[address] [place] [address] 87021 PLATELET 568 x10EE3/UL High 150 - 450 [facility] Comment on above: Performed By: #### 2 54712 #### [facility],[address] [place] [address] 99702 Platelet mean volume (Bld) [Entitic vol] 7.2 fL Normal 6.6 - 10.5 [facility] Comment on above: Performed By: #### 2 01110 #### [facility],[address] [place] [address] 53118 RBC 3.96 x 10EE6/UL Low 4.10 - 5.30 [facility] Comment on above: Performed By: #### 2 88979 #### [facility],[address] [place] [address] 66975 WBC 8.2 x 10EE3/UL Normal 4.5 - 10.8 [facility] Comment on above: Performed By: #### 2 86657 #### [facility],[address] [place] [address] 70804 CMP with eGFRon 07-19-2024 AGE 63 years Normal [facility] Comment on above: Performed By: #### 2 94362 #### [facility],[address] [place] [address] 72184 Albumin [Mass/Vol] 3.5 g/dL Normal 3.4 - 5.0 [facility] Comment on above: Performed By: #### 2 45167 #### [facility],[address] [place] [address] 20478 Albumin/Globulin [Mass ratio] 1.0 {ratio} Normal 0.9 - 1.6 [facility] Comment on above: Performed By: #### 2 51600 #### [facility],[address] [place] [address] 72505 ALK PHOS 82 U/L Normal 46 - 116 [facility] Comment on above: Performed By: #### 2 33735 #### [facility],[address] [place] [address] 64408 ALT [Catalytic activity/Vol] 48 U/L Normal 16 - 63 [facility] Comment on above: Performed By: #### 2 33008 #### [facility],[address] [place] [address] 67033 Anion gap [Moles/Vol] 13 mmol/L Normal 10 - 20 [facility] Comment on above: Performed By: #### 2 91170 #### [facility],[address] [place] [address] 15392 AST [Catalytic activity/Vol] 37 U/L Normal 13 - 39 [facility] Comment on above: Performed By: #### 2 48587 #### [facility],[address] [place] [address] 03328 B/C RATIO 13 ratio Normal 0 - 30 [facility] Comment on above: Performed By: #### 2 34951 #### [facility],[address] [place] [address] 19288 Bilirubin [Mass/Vol] 0.3 mg/dL Normal 0.2 - 1.0 [facility] Comment on above: Performed By: #### 2 27890 #### [facility],[address] [place] [address] 49816 Calcium [Mass/Vol] 8.6 mg/dL Normal 8.5 - 10.1 [facility] Comment on above: Performed By: #### 2 36245 #### [facility],[address] [place] [address] 29137 Chloride [Moles/Vol] 103 mmol/L Normal 98 - 107 [facility] Comment on above: Performed By: #### 2 82055 #### [facility],[address] [place] [address] 51486 CMP with eGFR Normal [facility] Comment on above: Result Comment: COMP REHENSIVE METABOLIC PANEL Performed By: #### 2 15239 #### [facility],[address] [place] [address] 22431 CO2 [Moles/Vol] 27.4 mmol/L Normal 21.0 - 32.0 [facility] Comment on above: Performed By: #### 2 42116 #### [facility],[address] [place] [address] 81108 Creatinine [Mass/Vol] 0.69 mg/dL Normal 0.55 - 1.02 [facility] Comment on above: Performed By: #### 2 74190 #### [facility],[address] [place] [address] 09806 GFR/1.73 sq M.predicted among non-blacks MDRD (S/P/Bld) [Vol rate/Area] mL/min/{1.73_m2} Normal 60 - 999 [facility] Comment on above: Performed By: #### 2 42762 #### [facility],[address] [place] [address] 62295 Result Comment: ACCO RDING TO THE NATIONAL KIDNEY DISEASE EDUCATION PROGRAM(NKDE), A NORMAL eGFR IS A VALUE GREATER THAN OR EQUAL TO 60 ML/MIN/1.73 SQ METERS. CHRONIC KIDNEY DISEASE: <60mL/MIN/1.73 SQ METERS KIDNEY FAILURE: <15mL/MIN/1.73 SQ METERS THIS TEST SHOULD ONLY BE USED FOR PATIENTS 18 YEARS OF AGE AND OLDER. Globulin (S) [Mass/Vol] 3.6 g/dL Normal 1.5 - 3.8 [facility] Comment on above: Performed By: #### 2 97533 #### [address] [address] Glucose [Mass/Vol] 110 mg/dL High 74 - 106 [facility] Comment on above: Performed By: #### 2 05401 #### [address] [address] Potassium [Moles/Vol] 3.8 mmol/L Normal 3.5 - 5.1 [facility] Comment on above: Performed By: #### 2 03434 #### [facility],[address] [place] [address] 19319 Protein [Mass/Vol] 7.1 g/dL Normal 6.4 - 8.2 [facility] Comment on above: Performed By: #### 2 77958 #### [facility],[address] [place] [address] 32019 Sodium [Moles/Vol] 140 mmol/L Normal 136 - 145 [facility] Comment on above: Performed By: #### 2 26388 #### [facility],[address] [place] [address] 35219 Urea nitrogen [Mass/Vol] 9 mg/dL Normal 7 - 18 [facility] Comment on above: Performed By: #### 2 27577 #### [facility],[address] [place] [address] 28800 HEMOGLOBIN A1C (POM)on 07-19 Glucose [Mass/Vol] 122.6 mg/dL High 0.0 - 0.0 [facility] Comment on above: Result Comment: BLDo HEMOGLOBIN A1C REFERENCE RANGESBLDo Suggested Diagnosis HbA1c(%) HbA1C (mmol/mol Diabetic >/=6.5 >/=48 Prediabetes 5.7 - 6.4 39 - 47 Normal <5.7 <39 Performed By: #### 2 09420 #### [facility],[address] [place] [address] 94212 HbA1c (Bld) [Mass fraction] 5.9 % Normal 0.0 - 6.5 [facility] Comment on above: Performed By: #### 2 54045 #### [facility],[address] [place] [address] 37702 LIPID PROFILEon 07-19-2024 Cholesterol [Mass/Vol] 134 mg/dL Normal 0 - 240 [facility] Comment on above: Performed By: #### 2 89138 #### [facility],[address] [place] [address] 05316 Cholesterol in HDL [Mass/Vol] 54 mg/dL Normal 40 - 60 [facility] Comment on above: Performed By: #### 2 67052 #### [facility],[address] [place] [address] 79221 Cholesterol in LDL [Mass/Vol] 71 mg/dL Normal 0 - 129 [facility] Comment on above: Performed By: #### 2 54492 #### [facility],[address] [place] [address] 52611 Cholesterol.total/Chol esterol in HDL [Mass ratio] 2.5 {ratio} Normal 0.0 - 5.0 [facility] Comment on above: Performed By: #### 2 70343 #### [facility],[address] [place] [address] 25231 Lipid 1996 panel Normal [facility] Comment on above: Result Comment: LIPI D PROFILE Performed By: #### 2 08278 #### [facility],[address] [place], [place] [address] Triglyceride [Mass/Vol] 43 mg/dL Normal 0 - 150 [facility] Comment on above: Performed By: #### 2 53487 #### [facility],[address] [place], [place] [address] TSHon 07-19-2024 TSH Qn 1.36 m[IU]/L Normal 0.35 - 3.74 [facility] Comment on above: Performed By: #### 2 74585 #### [facility],[address] [place] [address] 94968 URINALYSISon 07-19-2024 Bilirubin Ql (U) Negative Normal NORMAL: NEGATIVE [facility] Comment on above: Performed By: #### 2 74019 #### [facility],[address] [place] [address] Clarity (U) clear Normal NORMAL: CLEAR [facility] Comment on above: Performed By: #### 2 57898 #### [facility],[address] [place], [place] [address] Color (U) yellow Normal NORMAL: YELLOW [facility] Comment on above: Performed By: #### 2 03783 #### [facility],[address] [place] [address] 22229 Glucose Ql (U) NORM Normal NORMAL: NORMAL [facility] Comment on above: Performed By: #### 2 12270 #### [facility],[address] [place] [address] 16306 Hemoglobin Ql (U) Negative Normal NORMAL: NEGATIVE [facility] Comment on above: Performed By: #### 2 20023 #### [facility],[address] [place] [address] 94240 Ketone Negative Normal NORMAL: NEGATIVE [facility] Comment on above: Performed By: #### 2 46068 #### [facility],[address] [place] [address] 60649 Leukocytes Negative Normal NORMAL: NEGATIVE [facility] Comment on above: Performed By: #### 2 12921 #### [facility],[address] [place], [place] [address] Nitrite Ql (U) Negative Normal NORMAL: NEGATIVE [facility] Comment on above: Performed By: #### 2 28253 #### [facility],[address] [place] [address] pH (U) 7 [pH] Normal NORMAL: 5.0-8.0 [facility] Comment on above: Performed By: #### 2 76433 #### [facility],[address] [place] [address] Protein Ql (U) 15 Abnormal NORMAL: NEGATIVE [facility] Comment on above: Performed By: #### 2 05177 #### [facility],[address] [place] [address] Sp [place] 1.010 Normal NORMAL: 1.010-1.030 [facility] Comment on above: Performed By: #### 2 63726 #### [facility],[address] [place] [address] Specimen Type R Normal [facility] Comment on above: Performed By: #### 2 04722 #### [facility],[address] [place] [address] Urinalysis dipstick W Reflex Microscopic panel (U) NOT INDICATED Normal [facility] Comment on above: Performed By: #### 2 60164 #### [facility],[address] [place] [address] Urobilinog 1 Abnormal NORMAL: NORMAL [facility] Comment on above: Performed By: #### 2 29816 #### [facility],[address] [place] [address] OPERATIVE PROCEDURESon 05-23 OPERATIVE PROCEDURES [facility] OPERATIVE REPORT NAME ACCOUNT SEX AGE ADMIT DISCHARGE PT MED. RECORD# NUMBER DATE DATE TYPE JEREMY TURNER [id number] F 63 05/23/24 2 82734 ROOM: AMB6 DATE OF : 1960 DICTATING PHYSICIAN: Harvey Chapa DATE OF PROCEDURE: May 23, 2024 SURGEON: Harvey Chapa DO SUPERVISOR ELECTRONIC TESTING: None. ANESTHESIA: IV general. PREPROCEDURE DIAGNOSIS: Cervical [...] Harvey Chapa DO 05/23/24 10:41 JOB #: [id number] Transcribed By: am 05/23/24 11:06 Electronically signed by: E-SIGN: HARVEY CHAPA 05/23/24 12:32 Page 2 of 2 JEREMY TURNER Operative Report Normal [facility] OPERATIVE PROCEDURESon 04-25 OPERATIVE PROCEDURES [facility] OPERATIVE REPORT NAME ACCOUNT SEX AGE ADMIT DISCHARGE PT MED. RECORD# NUMBER DATE DATE TYPE JEREMY TURNER [id number] F 63 04/25/24 2 [id number] ROOM: [facility] DATE OF : 1960 DICTATING PHYSICIAN: Harvey Chapa DATE OF PROCEDURE: April 25, 2024 SURGEON: Harvey Chapa DO SUPERVISOR ELECTRONIC TESTING: None. ANESTHESIA: Local. PREPROCEDURE DIAGNOSES: 1. Lumbar [...] disease and correct needle placement. Dictated By: Harvey Chapa DO 04/25/24 10:08 JOB #: [id number] Transcribed By: am 04/25/24 10:26 Electronically signed by: E-SIGN: HARVEY CHAPA 04/25/24 13:25 Page 2 of 2 JEREMY TURNER Operative Report Normal [facility] Office Visit: Spine Visiton 02-28-2017 Tobacco smoking status NHIS Tobacco smoking status NHIS Invalid Interpretation Code [facility] Work Phone: Tobacco use [facility] Current every day smoker Invalid Interpretation Code [facility] Work Phone: Vital Signs Date Time Vital Sign Value Performing Clinician Isak robertson 02-28-2017 14:27-0500 BMI (Body Mass Index) 27.43 kg/m2 Obdulio [facility] Work Phone: 02-28-2017 14:27-[address] [facility] Work Phone: 02-28-2017 14:27-[address] [facility] Work Phone: Encounters Encounter Date Encounter Type Care Provider Facility Start: 02-27-2025 ambulatory [facility] Facility:[facility] Start: 11-18-2024 End: 11-18-2024 ambulatory Obdulio Teranr COSMETOLOGY INSTRUCTOR-C Work Phone: -[facility] Start: 11-18-2024 End: 11-18-[address] Sachin Blackwood MD -[facility] Work Phone: Start: 11-18-2024 End: 11-18-2024 [facility] [place] [facility] Start: 11-11-2024 End: 11-11-2024 ambulatory Obdulio Bowman COSMETOLOGY INSTRUCTOR-C Work Phone: -Laboratory Start: 11-11-2024 End: 11-11-[address] Sachin Blackwood MD -Laboratory Work Phone: Start: 11-11-2024 End: 11-11-2024 ambulatory [facility] Facility:[facility] [place] [facility] Start: 08-30-2024 End: 08-30-2024 ambulatory [facility] Start: 08-27-2024 End: 08-27-2024 ambulatory Obdulio Arnolderer COSMETOLOGY INSTRUCTOR-C Work Phone: [facility] [place] [facility] Work Phone: Start: 08-27-2024 End: 08-27-[address] Sachin Blackwood MD -Outpatient Bone Densitometry Work Phone: Start: 08-27-2024 End: 08-27-2024 ambulatory [facility] Facility:[facility] [place] [facility] Start: 08-08-2024 End: 08-08-[address] Sachin Blackwood MD -Laboratory Work Phone: Start: 08-07-2024 End: 08-08-2024 ambulatory [facility] [place] [facility] Start: 07-19-2024 End: 07-19-2024 ambulatory EDD TYLER [facility] Start: 05-23-2024 End: 05-23-2024 ambulatory OBDULIO DUDLEY [facility] Start: 04-25-2024 End: 04-25-2024 ambulatory OBDULIO DUDLEY [facility] Start: 03-25-2024 End: 03-25-2024 ambulatory HARVEY CHAPA [facility] Start: 02-16-2023 Non-patient / Non-visit MD ABDOUL JEROME [facility] Start: 02-16-2023 End: 02-16-2023 ambulatory MD SCHREIBER [facility] Work Phone: Start: 02-16-2023 End: 02-16-2023 Patient encounter procedure MD ABDOUL JEROME [facility] [place] [facility]-Pulmonary Services/Neurology Work Phone: Procedures Date Procedure Procedure Detail Performing Clinician Start: 11-18-2024 CT of chest Obdulio carrasco COSMETOLOGY INSTRUCTOR-C Work Phone: Start: 11-11-2024 Vitamin D, 25-hydrox y measurement Obdulio Bowman COSMETOLOGY INSTRUCTOR-C Work Phone: Comment on above: Vitamin D StatusDefi ciency: <20 ng/mL (50nmol/L)Insufficiency: 20-30 ng/mL (50-75 nmol/L)Sufficiency: 30-100 ng/mL (75-250 nmol/L)Toxicity: >100 ng/mL (>250 nmol/L) Start: 09-29-2024 Urinalysis OBDULIO CARRASCO Comment on above: Result Comment: URIN ALYSIS Performed By: #### 2 [id number] #### [facility],[address] [place] [address] Start: 08-27-2024 Dual energy X-ray absorptiometry Obdulio Bowman COSMETOLOGY INSTRUCTOR-C Work Phone: Start: 08-08-2024 Hepatitis C antibody measurement Obdulio Bowman COSMETOLOGY INSTRUCTOR-C Work Phone: Comment on above: Reactive: Presumptiv e evidence of antibodies to HCV. Follow CDC recommendations for supplemental testing.Non-Reactive: Antibodies to HCV were not detected; does not exclude the possibility of exposure to HCVReactive Results are presumptive evidence of antibodies to HCV. Follow CDC recommendations for supplemental testing.Order confirmation testing: HCV Quant by PCR testing - HCVPCR #[id number] Non Reactive: < 0.8 Equivocal: >/= 0.8 to < 1.0 Reactive: >/= 1.0The CDC requires that a reactive/equivocal HCV antibody result be sent out for confirmation. HCV Quant by PCR testing. Start: 08-08-2024 Vitamin D, 25-hydrox y measurement Obdulio Bowman COSMETOLOGY INSTRUCTOR-C Work Phone: Comment on above: Vitamin D StatusDefi ciency: <20 ng/mL (50nmol/L)Insufficiency: 20-30 ng/mL (50-75 nmol/L)Sufficiency: 30-100 ng/mL (75-250 nmol/L)Toxicity: >100 ng/mL (>250 nmol/L) Start: 07-19-2024 Urinalysis OBDULIO CARRASCO Comment on above: Result Comment: URIN ALYSIS Performed By: #### 2 82447 #### [facility],[address] [place] [address] 14169 Plan of Treatment Date Care Activity Detail Author Start: 03-01-2017 End: 03-01-2017 Physical Therapy General Physical Therapy [facility], [address] [place] [address], [phone] [facility] [...] Phone: Payers Date Payer Category Payer Medicaid [id number] 2024 Medicare [id number] 2024 Self-pay [id number] 1960 Unknown [id number] 2.16.8 [id number] 1960 Unknown [id number] 2.16.8 [id number] 1960 Unknown [id number] 2.16.8 [id number] 1960 Unknown [id number] 2.16.8 [id number] 1960 Unknown [id number] 2.16.8 [id number] 1960 Unknown [id number] 2.16.8 [id number] Medicare MEDICARE PART A B [id number] Unknown [id number] 2.16.8 [id number] Unknown [id number] 2.16.8 [id number] Unknown [id number] 2.16.8 [id number] Unknown [id number] 2.16.8 [id number] Unknown [id number] 2.16.8 [id number] Social History Date Type Detail [facility] Work Phone: Start: 1960 Sex Assigned At Female [facility] Tobacco smoking stat [facility] Unknown if ever smoked [facility] Work Phone: Clinical Note 11-21-2024 Note Date & Type Note Facility 11-21-2024 Note [facility] CONSULTATION REPORT NAME ACCOUNT SEX AGE ADMIT DISCHARGE PT MED. RECORD# NUMBER DATE DATE TYPE JEREMY TURNER [id number] F 64 11/20/2024 11/20/2024 2 [id number] ROOM: DATE OF : 1960 DICTATING PHYSICIAN: Harvey Chapa PROGRESS NOTE HISTORY OF PRESENT ILLNESS: The patient was seen today on November 20, 2024, at the [facility] in [place], [place]. The patient is doing fairly well. She had a left hip replacement. Unfortunately, she fell after the replacement, but there does not appear to be any "damage." She does have significant right shoulder pain. She states she is not sure when this occurred, but she cannot abduct her arm at all. More than 30 degrees, the patient has exquisite discomfort. The patient states she cannot sleep at night. The good news, however, is that her low back pain is doing well since radiofrequency lesioning of the medial branch blocks. She is on no medications except Zanaflex p.r.n. through her primary care physician. REVIEW OF SYSTEMS: The remainder of review of systems, intake form, pain questionnaire, nursing assessment, and OARRS report were reviewed. PHYSICAL EXAMINATION: GENERAL: This is a pleasant and talkative 64-year-old female who is alert and oriented x3. She is 130 pounds and 62 inches. Pain level is 10/10 in the right shoulder. VITAL SIGNS: Temperature is 97, pulse 85, respirations 18, and blood pressure 119/69. NECK: Cervical range of motion is preserved. Her thyroid is not enlarged. EXTREMITIES: Examination of the left shoulder reveals full range of motion. The right shoulder we cannot abduct more than 30 degrees without exquisite pain. There is profound weakness noted and significant discomfort. Palpation over the humerus does not appear to be painful. SPINE: The patient has mild pain with lumbar range of motion today and negative straight leg raising, though she does have some moderate spasm in the bilateral lumbar paraspinal musculature without trigger points. ASSESSMENT: 1. Right shoulder/joint pain. 2. Probable rotator cuff tear of right shoulder. 3. Lumbar spondylosis without myelopathy. 4. Lumbosacral spondylosis, stable. 5. Degenerative lumbar disc disease. 6. Status post successful left hip replacement. PLAN: We will do a diagnostic/therapeutic injection of the right shoulder today and get x-rays, i.e., plain films of the right shoulder. The patient will then follow up in March. If she is not markedly improved, then she will need an MRI and orthopedic consultation. Page 1 of 2 JEREMY TURNER Food And Drug Inspector Report JEREMY TURNER : 1960 The patient agrees to the plan and will call for any problems. Dictated By: Harvey Chapa DO 11/20/2024 11:43 JOB #: [id number] Transcribed By: scotty 11/20/2024 14:51 Electronically signed by: E-SIGN: HARVEY CHAPA 11/21/24 10:20 Page 2 of 2 JEREMY TURNER Food And Drug Inspector Report [facility] Radiology Diagnostic study note 11-18-2024 Note Date & Type Note Facility 11-18-2024 Radiology Diagnostic study note [facility] Imaging Services [address] [place] [address] Lung Screening MR#: [id number] Acct: [id number] Name: JEREMY TURNER Rep #: [id number] : 1960 F 64 From: Mirza Hinkle MD PCP: Dr. Sachin Blackwood MD Status: REG C DEIDRE Study:Low Dose CT Lung Screening Date of Exam : 11/18/24 Exam# [id number] Ordering Dr: Sachin Blackwood MD PROCEDURE: LOW DOSE CT LUNG SCREENING 11/18/2024 REASON FOR EXAM: NICOTINE DEPENDENCE Current smoker. Patient has smoked 2 pack per day for 51 years. COPD. TECHNIQUE: LOW DOSE CT LUNG SCREENING Coronal and Sagittal reconstruction series were provided. One or more dose reduction techniques were used (e.g., Automated exposure control, adjustment of the mA and/or kV according to patient size, use of iterative reconstruction technique). REFERENCE LINK: [address] [facility]-R[facility] RADIATION DOSE SUMMARY: CTDlvol: 2.01 mGy DLP: 68.46 mGycm COMPARISON: None FINDINGS: PULMONARY NODULES: (Only nodules >3mm are reported) Nodules described below are on series 1 unless otherwise specified. Pulmonary Nodules: No suspicious pulmonary nodule is seen. Hardware:None Lymph Nodes:Small benign-appearing mediastinal lymph nodes. Heart and Vasculature:The heart is not enlarged.Calcified atherosclerotic plaques of the aortic arch. Coronary Artery Calcifications: Present Lungs and Airways: Hyperinflation. Mild degree of emphysema. Scarring at the lung apices. Pleura:No pleural effusion. Upper Abdomen:Unremarkable Bones:Degenerative changes of the thoracic spine. CT/Low Dose CT Lung Screening IMPRESSION: Hyperinflation mild emphysematous changes. Scarring at the lung apices. Coronary artery calcification (CAC) is is present Lung-RADS Category: 2 BENIGN (BASED ON IMAGING FEATURES OR INDOLENT BEHAVIOR). RECOMMEND 12-MONTH SCREENING LDCT. Other Significant Findings: None Reading Location: [id number] CC: Dr. Sachin Blackwood MD ~ Cardiology Technician: Signed [facility] History and physical note 10-10-2024 Note Date & Type Note Facility 10-10-2024 Note [facility] HISTORY & PHYSICAL NAME ACCOUNT SEX AGE ADMIT DISCHARGE PT MED. RECORD# NUMBER DATE DATE TYPE JEREMY TURNER [id number] F 64 09/29/24 1 [id number] ROOM: [facility] DATE OF : [birth year] DICTATING PHYSICIAN: Edd [...] Edd Rinaldi MD 09/29/24 13:42 JOB #: [id number] Transcribed By: scotty 09/29/24 16:02 Electronically signed [...] of 3 JEREMY TURNER History & Physical [facility] Clinical Note 10-03-2024 Note Date & Type Note Facility 10-03-2024 Note [facility] PROGRESS NOTE NAME ACCOUNT SEX AGE ADMIT DISCHARGE PT MED. RECORD# NUMBER DATE DATE TYPE JEREMY TURNER [id number] F 64 09/29/24 1 [id number] ROOM: 301MO DATE OF : 1960 DICTATING [...] walker, and hip dislocation precautions. 4. Continue [place] as prescribed as needed for pain attempting to minimize narcotics as is appropriate for the patient's pain in the preoperative period. 5. Encouraged incentive spirometry. 6. Continue discharge planning with Case Management home going versus alf facility. Page 1 of 2 JEREMY TURNER Progress Note JOHNNYNERISSA David : 1960 7. Continue postoperative medical management [...] Liliam Cyr PA-C 10/01/24 09:19 JOB #: [id number] Transcribed By: sabina 10/01/24 09:45 Electronically signed by: E-sign Liliam WESLEY 10/03/24 13:15 Page 2 of 2 JEREMY TURNER Progress Note [facility] Clinical Note 10-01-2024 Note Date & Type Note Facility 10-01-2024 Note [facility] CONSULTATION REPORT NAME ACCOUNT SEX AGE ADMIT DISCHARGE PT MED. RECORD# NUMBER DATE DATE TYPE JEREMY TURNER [id number] F [id number] 09/29/2024 1 [id number] ROOM: [facility] [place] DATE OF : 1960 DICTATING PHYSICIAN: Elsa [...] intact. Page 1 of 2 JEREMY TURNER Food And Drug Inspector Report JEREMY TURNER : 1960 DIAGNOSTIC DATA: [...] for DVT prevention as well as LEISA justine and SCDs. Dictated By: Elsa Giordano MD 09/30/2024 17:56 JOB #: [id number] Transcribed By: scotty 09/30/2024 20:11 Electronically signed by: E-SIGN DR. ELSA GIORDANO M.D. 10/01/24 08:59 Page 2 of 2 NERISSA TURNER Dvaid Food And Drug Inspector Report [facility] Clinical Note 08-07-2024 Note Date & Type Note Facility 08-07-2024 Note [facility] CONSULTATION REPORT NAME ACCOUNT SEX AGE ADMIT DISCHARGE PT MED. RECORD# NUMBER DATE DATE TYPE JEREMY TURNER [id number] F [id number] 08/07/2024 08/07/2024 2 [id number] ROOM: DATE OF : 1960 DICTATING PHYSICIAN: Harvey Chapa PROGRESS NOTE HISTORY OF PRESENT ILLNESS: The patient was seen today on August 07, 2024, at the [facility] in [place], [place]. It was quite an extensive visit, [...] and Page 1 of 2 JEREMY TURNER Food And Drug Inspector Report JEREMY TURNER : 1960 L5-S1 medial [...] Harvey Chapa DO 08/07/2024 12:01 JOB #: [id number] Transcribed By: scotty 08/07/2024 12:10 Electronically signed by: E-SIGN: HARVEY CHAPA 08/07/24 15:01 Page 2 of 2 JEREMY TURNER Food And Drug Inspector Report [facility] Clinical Note 03-26-2024 Note Date & Type Note Facility 03-26-2024 [facility] CONSULTATION REPORT NAME ACCOUNT SEX AGE ADMIT DISCHARGE PT MED. RECORD# NUMBER DATE DATE TYPE JEREMY TURNER [id number] F [id number] 03/25/2024 03/25/2024 2 [id number] ROOM: DATE OF : 1960 DICTATING PHYSICIAN: Harvey Chapa HISTORY OF PRESENT ILLNESS: The patient is seen today on March 25, 2024 at the [facility] in [place], [place]. The patient is an extremely complex 63-year-old female who has headaches, initially occipital, and now they are "everywhere". The patient has had them for many [...] EXTREMITIES: The patient thought she had a "foot drop". She has no foot drop today, and [...] myelopathy. Page 1 of 2 JEREMY TURNER Food And Drug Inspector Report JEREMY TURNER : 1960 PLAN: We [...] step on anybodies toes. She gets intermittent [place], and it appears she also obtains some gabapentin. I am unsure whether that is beneficial or not. The patient agrees to the above. We will have her follow-up in 6 months after the radiofrequency lesioning to see how long it lasts. Dictated By: Harvey Chapa DO 03/25/2024 09:20 JOB #: [id number] Transcribed By: am 03/25/2024 12:45 Electronically signed by: E-SIGN: HARVEY CHAPA 03/26/24 14:43 Page 2 of 2 JEREMY TURNER Food And Drug Inspector Report [facility] Procedure note 02-16-2023 Note Date & Type Note Facility 02-16-2023 Procedure note [facility] Evaluation note Note Date & Type Note Facility Evaluation note No assessment information availa [facility] Work Phone: Reason for referral (narrative) Note Date & Type Note Facility Reason for referral (narrative) No reason for referral information available [facility] Work Phone: Chief Complaint and Reason for Visit Chief Complaint LEFT FOOT DROP;NUMBN ESS/TINGLING HANDS LEFT FOOT DROP;NUMBNESS/TINGLING HANDS Chief Complaint Admit Date SCREENING POST GAGE August 27, 2024 11:46 am Chief Complaint Admit Date SCREENING POST GAGE August 27, 2024 11:46 am NICOTINE DEP November 18, 2024 8:0 0am Summary Purpose Family History No Family History Records FoundNo Family History Records FoundNo Family History Records Found Advance Directives No Advanced Directives Records FoundNo Advanced Directives Records FoundNo Advanced Directives Records Found Additional Source Comments Care Teams (unrecognized sec tion and content) Team Status: Active Member Role Status Dates Annette Winn Family Provider Active COSMETOLOGY INSTRUCTOR. Obdulio Bowman NP-Yoon Primary Care Provider Activ e Team Status: Active Member Role Status Dates ABDOUL JEROME MD Referring Provider, Other Provider Active KATHLEEN Dunn Primary Care Provider Activ e Dr. Abhilash Handley MD Attending Provider Active Team Status: Inactive Member Role Status Dates ABDOUL JEROME MD Attending Provider, Referring Prov ider Active COSMETOLOGY INSTRUCTOR. Obdulio Bowman NP-C Primary Care Provider Activ e Team Status: Active Member Role Status Dates Dr. Sachin Blackwood MD Primary Care Provider Active Team Status: Inactive Member Role Status Dates Obdulio Bowman NP-C Primary Care Provider Active Start: August 08, [...] 27, 2024 End: August 27, 2024 Dr. aSchin Blackwood MD Attending Provider Active Start: August 27, 2024 End: August 27, 2024 Dr. Sachin Blackwood MD Referring Provider Active Start: August 27, 2024 End: August 27, 2024 Team Status: Active Member Role/Relationship Status Dates Dr. Sachin Blackwood MD Primary Care Provider Active Team Status: Inactive Member Role/Relationship Status Dates Obdulio Bowman NP-C Primary Care Provider Active Start: August 08, [...] November 11, 2024 End: November 11, 2024 Team Status: Inactive Member Role/Relationship Status Dates Dr. Sachin Blackwood MD Primary Care Provider Active Start: November 18, 2024 End: November 18, 2024 Dr. Sachin Blackwood MD Attending Provider Active Start: November 18, 2024 End: November 18, 2024 Dr. Sachin Blackwood MD Referring Provider Active Start: November 18, 2024 End: November 18, 2024 Goals (unrecognized section and content) Goals may be documented in a n alternate sectionGoals may be documented in an alternate sectionGoals may be documented in an alternate sectionGoals may be documented in an alternate section INFORMATION SOURCE (unrecogn ized section and content) DATE CREATED AUTHOR 10/06/2024 [facility] DATE CREATED AUTHOR AUTHOR'S ORGANIZ ATION 01/29/2025 [facility] DATE CREATED AUTHOR AUTHOR'S ORGANIZ ATION 02/01/2025 [facility] FOR RECORDS PERTAINING TO PATIENTS WHO ARE [...] BE BASED ON THE PRIMARY CLINICAL RECORDS. [employer] provides no warranty or guarantee of the accuracy or completeness of information in this document.
[2025-02-04 14:51] LABS: Cholesterol 274 mg/dL (<=200); Low Density Lipoprotein Calc. 180 mg/dL; Triglycerides 182 mg/dL; Very Low Density Lipoprotein 36 mg/dL (5-40); Vitamin D,25 Hydroxy 22.1 ng/mL (30-100); cholesterol:hdl ratio screen 4.56
[2025-02-04 15:13] LABS: AST(SGOT) 18 U/L (<=31); Alanine Aminotransfer ALT/SGPT 12 U/L (<=34); Albumin, Serum 4.5 g/dL (3.4-4.8); Alkaline Phosphatase 156 U/L (35-104); Anion Gap 13 (5-15); BUN 9 mg/dL (4-19); BUN/Creat Ratio 13.5 RATIO (10-20); Calcium,Total 9.5 mg/dL (7.6-11.0); Carbon Dioxide 24.0 mmol/L (21.0-32.0); Chloride 103 mmol/L (98-108); Globulin 2.5 g/dL (2.2-4.2); Glucose 113 mg/dL (70-99); Potassium 3.9 mmol/L (3.3-5.1)
== END | disposition home or self-care (01) ==
LOC: POLAB3 12:26
PROVIDERS: PCP Family Medicine Geriatric Medicine; Referring Provider Family Medicine Geriatric Medicine; Visit Provider Family Medicine Geriatric Medicine
DX: R53.83 Other fatigue (principal)
CPT/HCPCS: 36415; 80053; 80061; 82306; 84443; 85025

== ENCOUNTER 2025-02-27 11:04 | Observation (INO) | payer MEDICARE, MEDICAID, SELFPAY ==
[2025-02-07 11:56] LABS: Prothrombin Time (Protime)PT. 12.2 SECONDS (11.7-14.9)
[2025-02-07 11:57] LABS: Partial Thromboplast Time 29.4 Seconds (24.1-36.2)
[2025-02-07 12:33] LABS: Magnesium 2.2 mg/dL (1.5-2.2)
[2025-02-27] VITALS (17 sets, daily range): BP systolic 135–163; BP diastolic 74–100; PULSE 65–102; RESP 16–22; TEMP 36.6–37.1; O2SAT 88–97; BMI 24.5; BMI 24.2
[2025-02-27] MEDS: Lactated Ringers 1,000 ML 15 ML IV (08:03)
[2025-02-27] MEDS: Magnesium 1 GM over 15 mins IV (08:04)
--- NOTE | 2025-02-27 08:15 | PCM.PRE.AN2 ---
ASA Classification* ASA Classification ASA Classification: 3 Assessment & Plan Anesthesia* Anesthesia Assessment Anesthesia Assessment: Discussed sedation and/or anesthesia options, risks, benefits, and alternatives with patient/parents/legal guardian/POA. Questions invited. The patient/parents/legal guardian/POA seems to understand and agrees to proceed with anesthesia plan. Reviewed the physical assessment, medical history, allergy history and patient home medications list prior to surgery/procedure/anesthetic and documented any changes. Performed airway and anesthesia risk assessments. Anesthesia Type Anesthesia Type: General and Block (Patient is consented for interscalene block for pain control.) History Source History Obtained from:: Patient and Chart Anesthesia Focused Assessment* Temperature: 98.6 F Pulse Rate: 85 Blood Pressure: 145/87 Respiratory Rate: 18 Pulse Ox: 97 Oxygen Delivery Method: Room Air Airway Assessment Mouth opens: >3 cm Mallampati Score: I Teeth Condition: Missing (Patient is a dentulous.) Neck Range of motion (ROM): Limited ROM (Severe Restriction) Labs Anesthesia Preop lab: CBC WBC, (4.4-11.0) 9.6 K/mm3 02/04/25, 11:57 RBC, (4.2-5.4) 4.43 M/mm3 02/04/25, 11:57 Hgb, (12.0-15.0) 13.6 g/dL 02/04/25, 11: Hct, (37-47) 40.7 % 02/04/25, 11:57 Plt Count, (150-450) 445 K/mm3 02/04/25, 11:57 CHEMISTRY Potassium, (3.3-5.1) 3.9 mmol/L 02/04/25, 11:57 Sodium, (133-145) 140 mmol/L 02/04/25, 11:57 Magnesium, (1.5-2.2) 2.2 mg/dL 02/07/25, 11:19 BUN, (4-19) 9 mg/dL 02/04/25, 11:57 Creatinine, (0.70-1.20) 0.64 mg/dL L 02/04/25, 11:57 Glucose, (70-99) 113 mg/dL H 02/04/25, 11:57 TSH, (0.300-4.200) 2.190 uIU/mL 02/04/25, 11:57 COAG PT, (11.7-14.9) 12.2 SECONDS 02/07/25, 11:19 Pre-Assessment Diagnosis/Proposed Procedure Planned Operative Procedure(s): RIGHT SHOULDER HEMIARTHROPLASTY ERAS Anesthesia History Anesthesia History - steward racetrack: Anesthesia History - steward racetrack Hx Hospitalization No 01/28/25 08:41 Any Problems With Anesthesia No 01/28/25 08:41 Cholinesterase deficiency No 01/28/25 08:41 You/Your Family Experience No 01/28/25 08:41 fever (hyperthermia) with Relationship Recent Exposure to Contagious No 02/27/25 07:44 Disease Does patient have nerve No 01/28/25 08:41 stimulator Patient instructed to have device shut off --Does patient have Pacemaker No 02/27/25 07:44 or ICD? When Was Last Pacemaker Check QUESTION #4 FULL TEXT: You/Your Family Experience fever (hyperthermia) with Anesthesia Last Oral Intake Last Oral intake: Last Oral Intake NPO since 05:00 02/27/25 07:44 Meds taken in AM with sips of Yes 02/27/25 07:44 water? Meds patient instructed to tizanidine, alprazolam, 02/27/25 07:44 take am of surgery Cymbalta Any additional information?: Yes NPO since: 05:00 (Patient had a preop Ensure at 5 AM.) Meds taken in AM with sips of water?: Yes PONV PONV - steward racetrack: PONV - steward racetrack Female Yes 01/28/25 08:41 HX of Motion Sickness No 01/28/25 08:41 HX of N/V After Surgery No 01/28/25 08:41 Non-Smoker No 01/28/25 08:41 Duration of Surgery greater Yes 01/28/25 08:41 than 60 minutes Number of Risk Factors 2 01/28/25 08:41 PONV Score Moderate Risk 01/28/25 08:41 Height & Weight Height & Weight: Anesthesia: Height & Weight Height 5 ft 2 in 02/27/25 07:44 Weight: 61 kg 02/27/25 07:44 Body Mass Index (BMI) 24.5 02/27/25 07:44 Respiratory Assessment Respiratory Assessment - steward racetrack: Respiratory Tract Infection Hx - steward racetrack Hx Respiratory Tract Infection No 01/28/25 08:41 STOP Sleep Apnea STOP Sleep Apnea - steward racetrack: STOP Sleep Apnea - steward racetrack Hx Hypertension Yes: NO MED FOR 1 YR 01/28/25 08:41 Hx Sleep Apnea No 01/28/25 08:41 CPAP BIPAP Do you snore loudly (louder Yes 01/28/25 08:41 than talking or can be heard Do you often feel tired/ No 01/28/25 08:41 fatigued/ sleepy during daytime? Has anyone observed you stop Yes 01/28/25 08:41 breathing during sleep? STOP Results Positive 01/28/25 08:41 QUESTION #5 FULL TEXT : Do you snore loudly (louder than talking or can be heard through closed doors)? Tobacco Use History Tobacco Use History - steward racetrack: Tobacco Use History - steward racetrack Tobacco Use Smoking Status Current every day smoker 01/28/25 08:41 Hx Tobacco Use Yes 01/28/25 08:41 Years Smoking Packs Smoked per Day Smoking Cessation Date was within the last 15 years Hx Smoking Cessation Date Hx Smoking Cessation Counseling Any additional information?: Yes Smoking Status: Current every day smoker (Patient had smoked today) Hematologic Medial History Hematologic Hx - steward racetrack: Hematologic Medical Hx - supervisor research kennel Hx of Blood Transfusion No 01/28/25 08:41 Hx of Transfusion in last 3 No 01/28/25 08:41 Months Date of Last Transfusion (if within last 3 months) Ever experience any problems No 01/28/25 08:41 with transfusion(s)? Specify any problems Hx of Preganancy in last 3 No 01/28/25 08:41 Months Nurse Filling Out Transfusion DSCHRIBER 01/28/25 08:41 & Questions: Date: 01/28/25 01/28/25 08:41 Time: 08:45 01/28/25 08:41 Patient unable to answer at this time (ie. confused, unrespo /Reproduction History /Reproductive History - steward racetrack: /Reproductive Hx- steward racetrack Hx Now No 01/28/25 08:41 Gestational Age (in weeks): EDC: Hx Hx Para Hx Section SAB No 01/28/25 08:41 Does the father of the baby or his family experience fever w Father of the baby Malignant Hypertension history comment Active Medications Active Medications: Current Medications Generic Name Dose Route Start Last Admin Trade Name Diana PRN Reason Stop Dose Admin Lactated Ringer's 1,000 mls @ 15 mls/hr 02/27/25 07:15 02/27/25 08:03 IV 15 mls/hr .Q48H KEELY Administration Insulin Human Lispro 1 - 6 unit 02/27/25 07:00 Insulin Lispro 100 Unit/Ml Insuln.Pen SC Q4H PRN PRN BG>/= 180, SEE PROTOCOL Protocol PFS Medical History Avascular necrosis Wears glasses Wears dentures Post-menopausal Foot drop, left foot Bipolar disorder Depression Anxiety Alcohol use History of steroid therapy Rheumatoid arthritis Arthritis Anemia Bruising High cholesterol Restless legs Migraine headache Injury of head and neck Bulging of cervical intervertebral disc Bulging lumbar disc Back pain History of hiatal hernia Gastric reflux COPD (chronic obstructive pulmonary disease) Smoker Shortness of breath on exertion Chronic cough Emphysema, unspecified Leg cramps Sciatic leg pain History of pain when walking History of edema History of stress test Panic attacks Hypertension Home Medications Medication Instructions Recorded Last Taken Type acetaminophen 500 mg tablet 1,000 mg PO DAILY PRN PRN pain 01/28/25 02/26/25 History (Acetaminophen Extra Strength) albuterol sulfate 90 mcg/actuation 2 inh inhalation Q4H PRN shortness 01/28/25 02/27/25 History aerosol inhaler (Ventolin HFA) of breath or wheezing alprazolam 0.5 mg tablet 0.5 mg PO TID 01/28/25 02/27/25 History clonidine HCl 0.3 mg tablet 0.3 mg PO QHS 01/28/25 02/26/25 History diphenhydramine 25 2 tab PO QHS PRN pain 01/28/25 02/26/25 History mg-acetaminophen 500 mg tablet (Tylenol PM Extra Strength) duloxetine 60 mg capsule,delayed 60 mg PO BID 01/28/25 02/27/25 History release fluticasone 250 mcg-salmeterol 50 1 ea inhalation BID 01/28/25 02/27/25 History mcg/dose blistr powdr for inhalation fluticasone propionate 50 2 spray intranasal DAILY PRN PRN 01/28/25 02/25/25 History mcg/actuation nasal allergy symptoms spray,suspension gabapentin 100 mg capsule 200 mg PO TID 01/28/25 02/26/25 History tizanidine 4 mg tablet 12 mg PO TID 01/28/25 02/27/25 History Allergy/AdvReac Type Severity Reaction Status Date / Time No Known Allergies Allergy Verified 02/27/25 07:40 Surgical History Hx of right cataract extraction Hx of left cataract extraction History of esophagogastroduodenoscopy (EGD) History of History of radiofrequency ablation (RFA) of nerve of cervical spine History of radiofrequency ablation (RFA) of nerve of lumbar spine Hx of total hip arthroplasty Social History Smoking Status: Current every day smoker tobacco type: cigarettes Review of Systems (Anesthesia) ROS Narrative System reviewed and no additional complaints, except as documented.
[2025-02-27] MEDS: Midazolam 2 MG/2 ML Syringe IV (08:58)
[2025-02-27] MEDS: Cefazolin 1 GM/5 ML Vial 2 GM IV (09:05)
[2025-02-27] MEDS: Lidocaine 1% (5 ml sdv) 5 ML Vial 6 ML IV (09:11)
[2025-02-27] MEDS: TRANEXAMIC ACID 1,000 MG/10 ML ML 1000 MG IV (09:23)
--- NOTE | 2025-02-27 11:07 | PCM.OPRPT ---
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 Post-Operative Diagnosis: Right humeral head avascular necrosis Surgery/Procedure Performed: Right shoulder hemiarthroplasty macerator operator: Yes Levelman: Lacey Ayon Tasks completed by assisted living care manager: Opening & closing, Implanting device and Hemostasis: Electrocautery Additional production administrative assistant?: No Type of Anesthesia: General/Regional RN Documented Start/Stop Times: Operation Date: 02/27/25 09:30 Case Time Into Pre-Op 02/27/25 07:13 Anesthesia Start 02/27/25 09:05 Into Room 02/27/25 09:05 Out of Pre-Op 02/27/25 09:05 Procedure Start 02/27/25 09:43 Procedure Start Time: 09:43 Procedure Stop Time: 10:58 Select all DRAINS/GRAFTS/IMPLANTS that apply: Implanted device Implanted device details: Tornier flex size #3 stem, pirate carbon humeral head eccentric high offset outer diameter 43 mm Estimated Blood Loss: 100 cc Specimen collected: No Description of surgery: Patient was identified in the preoperative holding area by name, medical record number, and date of . The operative extremity was marked. All questions were answered to patient's satisfaction. Interscalene block was then administered by anesthesia staff. At time of her procedure, patient was brought to the operative suite and positioned supine on a standard operating table. General anesthesia was induced and endotracheal tube placed. Patient was then positioned in the beachchair position with all bony prominences well-padded. The wing of the bed was removed to access the scapula. Chest strap was applied. Blood pressure was appropriate for beach. Position. Provisional skin prep performed with hydrogen peroxide. We then prepped and draped the right upper extremity in normal, sterile orthopedic fashion with ChloraPrep. Timeout was called confirming the side, site, and operation to be performed. No concerns were voiced and elected proceed with surgery. 2 g Ancef was administered IV prior to incision by anesthesia staff. I first marked a standard deltopectoral incision just lateral to the coracoid process in line with the long axis of the humerus. Skin was sharply incised with 10 blade scalpel. I then dissected bluntly through the subcutaneous layers and found the fat stripe between the deltoid and pectoralis major. The cephalic vein was then identified and protected. It was retracted laterally with the deltoid. I then bluntly dissected underneath the deltoid with a Ahn elevator. Coral retractor was placed. I then identified the long head of the biceps tendon in the intertubercular groove. This was tenodesed in situ with #2 FiberWire. I then amputated the biceps proximal to the tenodesis site and followed the tendon to the supraglenoid tubercle where it was amputated. This identified the lesser and greater tuberosities. The supraspinatus pristine. I then performed a subscapularis peel while rotating the humerus externally. I tagged the subscapularis for repair later with a tagging suture. Humeral head was then dislocated anteriorly. Delamination of the chondral surface was collapse was noted consistent with avascular necrosis. Appropriate access to the humeral head was confirmed. I then subluxed the humeral head posteriorly with a Fukuda retractor placed around the posterior lip of the glenoid. Inferior capsule was tension. I was able to palpate the axillary nerve.3 sided subscapularis release was performed with Bovie cautery. I then remove the Fukuda retractor and redislocated the shoulder anteriorly. I then made a anatomic neck cut of the cartilaginous surface of the humeral head. Opening reaming was performed and I broached up to a size #3 stem with excellent purchase. We trialed heads and reduced the shoulder several times with multiple trial heads. We settled upon a high offset 43 mm head which demonstrated excellent tension and appropriate mobility without overt instability. I have performed a final dislocation. Trials were removed. Canal was irrigated copiously with normal saline. Drill holes were made for suture repair of the subscapularis with 4 suture tapes. Final stem was then impacted to plan position. Final reaming was performed for a flat cut surface. Final head was then impacted per gre tutor recommendations with the specialized [employer] Coate carbon impaction device. Appropriate Stafford taper purchase was noted. Final reduction was performed. Stability was maintained from trialing. I then performed a 3-minute Betadine soak of dilute sterile Betadine. The wound was copious irrigated normal saline then. The subscapularis was then repaired meticulously with 3 transosseous suture tapes sequentially tied and then a [id number]-[id number] suture tape which applied excellent compression across the repair. Sutures were cut. Repair was stable to external and internal rotation. The rotator interval was then closed with interrupted [id number] suture tape. The wound was again irrigated. Fascia was reapproximated with running, locking #1 Vicryl suture. Skin was reapproximated with buried 2-0 Vicryl suture in the dermis and subcuticular 4-0 V-Loc. Sterile compression dressing silver Mepilex applied. A UltraSling was applied. Patient was awakened in the operative suite and safely extubated. She was transferred to her hospital bed and subsequent to PACU in stable condition. She tolerated the procedure well without apparent complication. Need for skilled production administrative assistant: Lacey Ayon PA-C was critical to the outcome of the case. During the course of the procedure the physician production administrative assistant played a vital role. Her intimate knowledge of my steps in the procedure aided in safe and expedient completion of the procedure. The PA played a vital role in positioning particularly in obtaining the appropriate positioning. The PA was also vital in the retraction of soft tissues during the exposure and protecting vital structures. The PA was also vital and protecting soft tissues during times of bony cuts. She also played a vital role in closure with my direct supervision. The PA was also important during reduction and dislocation of the joint and trials intraoperatively. Intraoperative medications: 2 g Ancef IV, 1 g TXA IV x2 Postoperative plan: Patient be placed observation overnight as she lives alone. Sling x 6 weeks. No external rotation beyond 30 degrees. Pendulums to start postoperative day #1. Follow-up in 2 weeks. Anticipate discharge home tomorrow. Multimodal pain management with Tylenol, NSAIDs and oxycodone. 24 hours IV antibiotics. Surgical Findings: Findings of avascular necrosis of the humeral head. Stable right shoulder after final reduction and subscapularis repair. Complications Complications: No Admit VTE Documentation VTE Present on Admission: No VTE Mechan Device Prophylaxis: SCD's VTE Pharm Prophylaxis ordered?: Yes
--- NOTE | 2025-02-27 11:15 | RAD_ITS ---
PROCEDURE: SHOULDER MIN 2 VIEWS 02/27/2025 REASON FOR EXAM: POST OP Status post right shoulder hemiarthroplasty with placement of a humeral head. TECHNIQUE: Procedure Code: RADSH Modality: DX Procedure: SHOULDER MIN 2 VIEWS Laterality: Right shoulder FINDINGS: Status post right shoulder hemiarthroplasty with placement of prosthetic right humeral head. RAD/Shoulder min 2 Views IMPRESSION: Status post right hemiarthroplasty with placement of a prosthetic right humeral head. Reading Location: [facility]
--- NOTE | 2025-02-27 11:15 | PCM.POST.ANE ---
Anesthesia: Postop Eval I Current Vital Signs Temperature: 98.1 F Pulse Rate: 98 Blood Pressure: 163/80 Respiratory Rate: 16 Pulse Ox: 92 Assessment Airway patent: Yes Spontaneous unlabored respirations: Yes nausea: No Vomiting: No Anesthesia Complication: No Fluid Hydration Crystalloid volume administer (ml): 800 Total IV fluid infused: 800 Progress Note Anesthesia document: Postop Eval 1 completed: Yes
--- NOTE | 2025-02-27 14:27 | POSTOPAN2_ITS ---
Anesthesia Postop Eval I Sum Postop Eval Completion status Anesthesia document: Postop Eval 1 completed: Yes Anesthesia Postop Eval I Summary Anesthesia Postop Eval I Summary: Anesthesia Postop Eval I: Assessment Summary Airway patent Yes 02/27/25 11:15 ENERGY EFFICIENCY FINANCE MANAGER.TNES Spontaneous unlabored Yes 02/27/25 11:15 ENERGY EFFICIENCY FINANCE MANAGER.TNES respirations Mental status nausea No 02/27/25 11:15 ENERGY EFFICIENCY FINANCE MANAGER.TNES Vomiting No 02/27/25 11:15 ENERGY EFFICIENCY FINANCE MANAGER.TNES Anesthesia Postop Eval I: Fluid Summary Crystalloid volume administer 800 02/27/25 11:15 ENERGY EFFICIENCY FINANCE MANAGER.TNES (ml) Colloids volume administered ( ml) Blood Product volume administered (ml) Total IV fluid infused 800 02/27/25 11:15 ENERGY EFFICIENCY FINANCE MANAGER.TNES Anesthesia Postop Eval I: Summary Notes Anesthesia Complication No 02/27/25 11:15 ENERGY EFFICIENCY FINANCE MANAGER.TNES Anesthesia Complication Comment: Post-operative progress note Anesthesia: Postop Eval II Evaluation Mental status: Awake and Calm Pain Level: 0 nausea: No Vomiting: No Complications Anesthesia Complication: No
--- NOTE | 2025-02-27 14:27 | PCM.POSTANE2 ---
Anesthesia Postop Eval I Sum Postop Eval Completion status Anesthesia document: Postop Eval 1 completed: Yes Anesthesia Postop Eval I Summary Anesthesia Postop Eval I Summary: Anesthesia Postop Eval I: Assessment Summary Airway patent Yes 02/27/25 11:15 GRAIN [email or web address] Spontaneous unlabored Yes 02/27/25 11:15 GRAIN [email or web address] respirations Mental status nausea No 02/27/25 11:15 GRAIN [email or web address] Vomiting No 02/27/25 11:15 GRAIN [email or web address] Anesthesia Postop Eval I: Fluid Summary Crystalloid volume administer 800 02/27/25 11:15 GRAIN [email or web address].[email or web address] (ml) Colloids volume administered ( ml) Blood Product volume administered (ml) Total IV fluid infused 800 02/27/25 11:15 GRAIN [email or web address] Anesthesia Postop Eval I: Summary Notes Anesthesia Complication No 02/27/25 11:15 GRAIN [email or web address] Anesthesia Complication Comment: Post-operative progress note Anesthesia: Postop Eval II Evaluation Mental status: Awake and Calm Pain Level: 0 nausea: No Vomiting: No Complications Anesthesia Complication: No
[2025-02-27] MEDS: Cefazolin 1 GM/50 ML BAG IV (17:04)
[2025-02-27] MEDS: Ensure Surgery 237 ML LIQUID PO (17:06)
[2025-02-27] MEDS: Albuterol 2.5 MG/3 ML VIAL.NEB. INHALATION (19:45)
[2025-02-27] MEDS: Budesonide Respules 0.5 MG/2 ML AMPUL.NEB. INHALATION (19:46)
[2025-02-27] MEDS: Senna/Docusate Sodium 1 Tablet 2 TABLET PO ×2 (21:04→21:12)
[2025-02-28] VITALS (7 sets, daily range): BP systolic 93–116; BP diastolic 54–66; PULSE 59–76; RESP 16; TEMP 36.4–36.8; O2SAT 91–96
[2025-02-28] MEDS: Cefazolin 1 GM/50 ML BAG IV (01:31)
[2025-02-28] MEDS: Albuterol 2.5 MG/3 ML VIAL.NEB. INHALATION ×2 (07:30→13:12)
[2025-02-28] MEDS: Budesonide Respules 0.5 MG/2 ML AMPUL.NEB. INHALATION (07:30)
[2025-02-28 08:20] LABS: Hematocrit 31.7 % (37-47); Hemoglobin 10.5 g/dL (12.0-15.0); Mean Corp Hgb Conc 33.1 g/dL (32-36); Mean Corpuscular Volume 94.6 fL (81-99); Mean Platelet Vol. 9.6 fl (6.2-12.0); Platelet Count 306 K/mm3 (150-450); RBC Distribution Width CV 13.4 % (11.6-14.6); RBC Distribution Width SD 45.8 fl (35.1-43.9); Red Blood Count 3.35 M/mm3 (4.2-5.4); White Blood Count 11.8 K/mm3 (4.4-11.0)
[2025-02-28] MEDS: Senna/Docusate Sodium 1 Tablet 2 TABLET PO (08:45)
[2025-02-28] MEDS: Aspirin E.C. 81 MG Tablet PO (08:46)
[2025-02-28] MEDS: Ensure Surgery 237 ML LIQUID PO (08:46)
[2025-02-28 08:58] LABS: Anion Gap 8 (5-15); BUN 12 mg/dL (4-19); BUN/Creat Ratio 25.1 RATIO (10-20); Calcium,Total 8.5 mg/dL (7.6-11.0); Carbon Dioxide 23.9 mmol/L (21.0-32.0); Chloride 105 mmol/L (98-108); Estimated Creatinine Clearance 54.71 ml/min (50-250); Glucose 157 mg/dL (70-99); Potassium 3.9 mmol/L (3.3-5.1)
--- NOTE | 2025-02-28 10:49 | PCM.DC.SUM ---
Providers Date of Admission: 02/27/25 Date of Discharge: 02/28/25 Primary Care Physician: Dr. Sachin Blackwood MD Reason For Visit: right shoulder hemiarthroplasty, ERAS Diagnosis Discharge Diagnosis (1) Status post right shoulder hemiarthroplasty: Status: Acute Code(s): Z96.611 - Presence of right artificial shoulder joint Plan: 1. Will continue PT today. Sling at all times. No external rotation beyond 30 degrees. NWB right upper extremity 2. plan for discharge this afternoon following PT 3. Patient will follow up for post op appointment as previously scheduled in 2 weeks postoperatively 4. Patient has outpatient PT appointment in approximately 2 weeks post operatively 5. WBC 11.8 acute reactive leukocytosis: secondary to pre operative decadron. no acute systemic signs of infection. will monitor, and likely self resolve. 6. H/H .7: post operavtive anemia secondary to acute blood loss intraoperatively. Patient is asymptomatic at this time. No intraoperative complications. will continue to monitor. no acute interventions. 7. DVT prophylaxis : ASA81 BID x 2 weeks 8. Pain control: patient instructed to take tylenol 500mg 2 tablets TID. and oxycodone 1-2 tablets every 4-6 hours only as needed for pain control. 9. ok to remove post op dressing. post op day 7 Medications at Discharge Home Medications albuterol sulfate 90 mcg/actuation aerosol inhaler (Ventolin HFA) 2 inh inhalation Q4H PRN shortness of breath or wheezing 01/28/25 alprazolam 0.5 mg tablet 0.5 mg PO TID 01/28/25 clonidine HCl 0.3 mg tablet 0.3 mg PO QHS 01/28/25 diphenhydramine 25 mg-acetaminophen 500 mg tablet (Tylenol PM Extra Strength) 2 tab PO QHS PRN pain 01/28/25 Held on 02/28/25. Instructions: Resume on 03/30/25. duloxetine 60 mg capsule,delayed release 60 mg PO BID 01/28/25 fluticasone 250 mcg-salmeterol 50 mcg/dose blistr powdr for inhalation 1 ea inhalation BID 01/28/25 fluticasone propionate 50 mcg/actuation nasal spray,suspension 2 spray intranasal DAILY PRN PRN allergy symptoms 01/28/25 gabapentin 100 mg capsule 200 mg PO TID 01/28/25 tizanidine 4 mg tablet 12 mg PO TID 01/28/25 acetaminophen 500 mg capsule 1,000 mg (2 x 500 mg) PO .8hrs #180 caps 02/28/25 acetaminophen 500 mg tablet 1,000 mg (2 x 500 mg) PO Q8 #180 tabs 02/28/25 aspirin 81 mg capsule 81 mg PO BID 2 weeks #28 caps 02/28/25 celecoxib 200 mg capsule (Celebrex) 200 mg PO BID 2 weeks #28 caps 02/28/25 oxycodone 5 mg tablet 5 mg PO .q4-6hrs prn PRN pain 7 days #30 tabs 02/28/25 sennosides 8.6 mg capsule (senna) 8.6 mg PO DAILY #14 caps 02/28/25 Hospital Course Operations - (right shoulder hemiarthroplasty) Summary of Care Provided Hospital Course: Patient is s/p right shoulder hemiarthroplasty with Dr. Goyal 02/27/2025. Patient resting comfortably in bed. Rates pain 6/ 10. States taking oxycodone as needed and ice help to relieve pain. Patient has been up with therapy. Sling at all times right upper extremity x 6 weeks. Afebrile, no chest pain, shortness of breath, negative calf pain/ erythema, and no other signs of DVT. Physical Exam Narrative Patient resting comfortably in bed Sling in place to right upper extremity No signs of acute distress Satting well on room air Limb is warm to touch, Sensation intact throughout entire upper extremity, Motor intact to radial, median, ulnar nerve distribution Radial pulses bounding Dressing clear dry intact Calf nontender to palpation, no erythema, no edema. Negative Homans Weight / BMI Weight Weight: 60 kg Body Mass Index (BMI) 24.2 ABG / Lab / Microbiology Data 02/28/25 07:49 02/28/25 07:49 Laboratory: Laboratory Results - last 24 hr 02/28/25 07:49: WBC 11.8 H, RBC 3.35 L, Hgb 10.5 L, Hct 31.7 L, MCV 94.6, MCH 31.3, MCHC 33.1, RDW Std Deviation 45.8 H, RDW Coeff of Rajat 13.4, Plt Count 306, MPV 9.6, Sodium 137, Potassium 3.9, Chloride 105, Carbon Dioxide 23.9, Anion Gap 8, BUN 12, Creatinine 0.47 L, Estim Creat Clear Calc 54.71, Est GFR (MDRD) Non-Af 105, BUN/Creatinine Ratio 25.1 H, Glucose 157 H, Calcium 8.5 Microbiology: Microbiology 02/07/25 11:19 Swab (Method) Nasal Screen MRSA/MSSA - Final Radiography Diagnostic Testing: Radiology Impression Shoulder X-Ray 02/27/25 11:15 IMPRESSION: Status post right hemiarthroplasty with placement of a prosthetic right humeral head. Reading Location: [place] [id number] D/C Instructions Discharge Activity: August Shower Weight Bearing Status: No weight bearing (right upper extremity. sling at all times. ) Call your doctor if your incision/area has: Continuous Slow Oozing, Sudden Increased Bleeding, Increased Pain/ Swelling, Increased Redness, Foul Smelling Discharge and Swelling at the incision site Call your doctor if you observe: Fever of 101 or Higher, Inability to have a bowel movement, Shortness of breath, Dizziness, Chest pain, Calf discomfort and Uncontrolled pain Remove Dressing in: 1 week Cleanse incision/area with: Soap & Water and Keep Dressing Clean & Dry Additional Dressing/Incision Instructions: sling at all times. DC O2, CPAP, BIPAP Needs Home O2 Discharge instructions: No DC home with Oxygen: No When: f/u 2 weeks with [facility] as previously scheduled Meaningful Use Info Meaningful Use Meaningful Use Diagnoses (Choose all that apply): None applicable Discharge Plan Admission Admit Date/Time: 02/27/25 11:04 Attending Provider: Edgar Parsons Primary Care Provider: Sachin Blackwood Chi Consulting Providers: Corey Durán Discharge Orders/Prescriptions Prescriptions: New acetaminophen 500 mg Tablet 1,000 mg PO Q8 Qty: 180 0RF acetaminophen 500 mg capsule 1,000 mg PO .8hrs Qty: 180 0RF oxycodone 5 mg tablet 5 mg PO .q4-6hrs prn PRN (Reason: pain) 7 Days Qty: 30 0RF celecoxib [Celebrex] 200 mg capsule 200 mg PO BID 14 Days Qty: 28 0RF aspirin 81 mg capsule 81 mg PO BID 14 Days Qty: 28 0RF senna 8.6 mg capsule 8.6 mg PO DAILY Qty: 14 0RF Continued duloxetine 60 mg capsule,delayed release(DR/EC) 60 mg PO BID clonidine HCl 0.3 mg tablet 0.3 mg PO QHS tizanidine 4 mg tablet 12 mg PO TID alprazolam 0.5 mg tablet 0.5 mg PO TID gabapentin 100 mg capsule 200 mg PO TID fluticasone propion-salmeterol 250-50 mcg/dose blister with device 1 ea inhalation BID albuterol sulfate [Ventolin HFA] 90 mcg/actuation HFA aerosol inhaler 2 inh inhalation Q4H PRN (Reason: shortness of breath or wheezing) fluticasone propionate 50 mcg/actuation spray,suspension 2 spray INTRANASAL DAILY PRN PRN (Reason: allergy symptoms) Held diphenhydramine-acetaminophen [Tylenol PM Extra Strength] 25-500 mg tablet 2 tab PO QHS PRN (Reason: pain) Hold Instructions: Resume on 03/30/25. Discontinued acetaminophen [Acetaminophen Extra Strength] 500 mg tablet 1,000 mg PO DAILY PRN PRN (Reason: pain) Referrals / Follow Up: Sachin Blackwood Chi, MD [Primary Care Provider, Geriatrics] Disposition Disposition (needs filled in before D/C Order can be placed): Home, Self Care
--- NOTE | 2025-02-28 11:06 | CASEMGMT ---
Addendum entered by Hellen Garcia 02/28/25 13:16: TC to Tal[facility] as pt nurse states pt does not have any funds for her rx, there is no cost to her medications. Pt is aware to call them to make aware if she is picking them up today or if they should mail them. She states she does not have an ID with her. She states she will see if they need it when she calls. Pt denies further needs. Original Note: Noted OT ADE canales CM into pt room, pt sitting up in chair in no distress. Pt states she feels safe to return home. Pt states her niece will be staying with her through the weekend. She also states that her son is available to assist as needed. Pt denies need for HHC.
--- NOTE | 2025-02-28 15:09 | PHA.DC_ITS ---
Pharmacy [facility] Counseling Pharmacy Service has performed discharge medication reconciliation and counseling for this patient. The patient's discharge medication list was reviewed for discrepancies and discrepancies were resolved. The patient was counseled on the following discharge medications and changes in medications for homegoing were reviewed. The Reason for Use, instructions for use, and potential side effects were reviewed for all new medications. The patient's questions regarding all of their medications were answered. 1. Acetaminophen 1000 mg PO Q8H 2. Aspirin 81 mg PO BID x 2 weeks 3. Celecoxib 200 mg PO BID x 2 weeks 4. Oxycodone 5 mg PO Q4-6H PRN pain 5. Senna 8.6 mg PO daily The patient was able to verbally demonstrate an understanding of their discharge medications. The patient was counselled on new medications by pharmacy technologist Baldo. Medications at Discharge Home Medications albuterol sulfate 90 mcg/actuation aerosol inhaler (Ventolin HFA) 2 inh inhalation Q4H PRN shortness of breath or wheezing 01/28/25 alprazolam 0.5 mg tablet 0.5 mg PO TID 01/28/25 clonidine HCl 0.3 mg tablet 0.3 mg PO QHS 01/28/25 diphenhydramine 25 mg-acetaminophen 500 mg tablet (Tylenol PM Extra Strength) 2 tab PO QHS PRN pain 01/28/25 Held on 02/28/25. Instructions: Resume on 03/30/25. duloxetine 60 mg capsule,delayed release 60 mg PO BID 01/28/25 fluticasone 250 mcg-salmeterol 50 mcg/dose blistr powdr for inhalation 1 ea inhalation BID 01/28/25 fluticasone propionate 50 mcg/actuation nasal spray,suspension 2 spray intranasal DAILY PRN PRN allergy symptoms 01/28/25 gabapentin 100 mg capsule 200 mg PO TID 01/28/25 tizanidine 4 mg tablet 12 mg PO TID 01/28/25 acetaminophen 500 mg capsule 1,000 mg (2 x 500 mg) PO .8hrs #180 caps 02/28/25 acetaminophen 500 mg tablet 1,000 mg (2 x 500 mg) PO Q8 #180 tabs 02/28/25 aspirin 81 mg capsule 81 mg PO BID 2 weeks #28 caps 02/28/25 celecoxib 200 mg capsule (Celebrex) 200 mg PO BID 2 weeks #28 caps 02/28/25 oxycodone 5 mg tablet 5 mg PO .q4-6hrs prn PRN pain 7 days #30 tabs 02/28/25 sennosides 8.6 mg capsule (senna) 8.6 mg PO DAILY #14 caps 02/28/25
--- NOTE | 2025-02-28 15:49 | CASEMGMT ---
TORRES Met with patient to complete TORRES form. TORRES form and its content were verbally explained and patient's questions were answered to the best of my ability. Patient voiced understanding and signed TORRES form. Patient provided a copy of signed TORRES form and original placed in patient's chart. Patient had no further questions. Miesha Mcclellan, Discharge Planning Asst
== END 2025-02-28 16:41 | disposition home or self-care (01) ==
LOC: SDC 14:18 → MS3 14:18
PROVIDERS: Anesthesiology; Admitting Provider Student in an Organized Health Care Education/Training Program; PCP Family Medicine Geriatric Medicine; Referring Provider Student in an Organized Health Care Education/Training Program; Visit Provider Student in an Organized Health Care Education/Training Program
DX: M87.821 Other osteonecrosis, right humerus (principal); F31.9 Bipolar disorder, unspecified; J43.9 Emphysema, unspecified; F17.210 Nicotine dependence, cigarettes, uncomplicated; Z79.51 Long term (current) use of inhaled steroids; I10 Essential (primary) hypertension; K21.9 Gastro-esophageal reflux disease without esophagitis; Z79.899 Other long term (current) drug therapy; F41.0 Panic disorder [episodic paroxysmal anxiety]; F42.9 Obsessive-compulsive disorder, unspecified; R60.0 Localized edema; R06.02 Shortness of breath; R20.0 Anesthesia of skin
CPT/HCPCS: 23470; 01630; 36415; 73030; 80048; 82962; 83735; 85027; 85610; 85730; 87081; 94640; 94668; 94762; 96365; 96366; 97165; 99221; 99406; C1776; G0378; J2405; J3475